=== PATIENT | male | born 1985 | race Caucasian/White ===

== ENCOUNTER 2020-07-09 12:12 | Inpatient (IN) | payer MEDICAID ==
[2020-07-09] MEDS ORDERED: Sodium Chloride 0.9% 10 ML Syringe FLUSH PRN (12:20)
[2020-07-09] MEDS ORDERED: Sodium Chloride 0.9% 1,000 ML IV ONE ×2 (12:20→16:04)
[2020-07-09] MEDS ORDERED: Sodium Chloride 0.9% 2.5 ML Syringe FLUSH PRN (12:20)
[2020-07-09] MEDS ORDERED: Ondansetron 4 MG/2 ML SDV IVPUSH ONE (12:27)
[2020-07-09] MEDS ORDERED: Ondansetron 4 MG/2 ML SDV ONE (12:27)
--- NOTE | 2020-07-09 12:30 | EDM.PDOC ---
ED HPI GENERAL MEDICAL PROBLEM - General Chief Complaint: Abdominal Pain Stated Complaint: EMS Time Seen by Provider: 07/09/20 12:25 - History of Present Illness INITIAL COMMENTS - FREE TEXT/NARRATIVE: History of present illness: [] The patient been vomiting and had abdominal distention with pain in his abdomen for 2 days. The patient's pain is moderately severe at times. Its tolerable now. He has not had a bowel movement in 2 days ago. He is also not passing gas. His vomitus essentially is what ever he eats. He was seen at a hospital in [facility] and had x-rays last night and a white count. The x-ray showed small bowel obstruction and the white count was 12,000. The patient continues to have the symptoms and vomiting. He presents for CT after having oral contrast administered at [place]. Their CT scanner was not can rotate through early today so they sent him to us because Jeanette Cartagena is on diversion. Review of systems: As per history of present illness and below otherwise all systems reviewed and negative. Past medical history: As per history of present illness and as reviewed below otherwise noncontributory. Surgical history: As per history of present illness and as reviewed below otherwise noncontributory. Social history: No reported history of drug or alcohol abuse. Family history: As per history of present illness and as reviewed below otherwise noncontributory. Physical exam: Constitutional - well developed, well-nourished and in no acute distress HEENT - normocephalic, no evidence of trauma - external nose and mouth normal - no mass in neck and no JVD - mucosae moist EYES - full EOM, PERRL, no icterus - no evidence of inflammation, injection, or drainage Respiratory - no respiratory distress, equal bilateral expansion, lungs clear to auscultation and no abnormal lung sounds Cardiovascular - Regular Rhythm with S1 and S2 appreciated and no murmur, gallop or rub. GI - abdomen distended without organomegaly - normal bowel sounds - no guard or rebound Musculoskeletal no gross deformity of long bones or joints - no tenderness, swelling or edema Neurologic - Alert and oriented times four - CN II-XII grossly intact - motor sensory and coordination symmetrically normal Psychiatric - appropriate mood and affect with normal thought content Hematologic - No petechiae or purpura - mucosa appropriate color and sclera not pale - normal nail bed color and refill Integument - no rash or evidence of trauma - normal turgor Diagnostics: [] Therapeutics: [] Impression: [] Plan: [] Definitive disposition and diagnosis as appropriate pending reevaluation and review of above. abdomen Pain Score (Numeric/FACES): 2 - Related Data Allergies Allergy/AdvReac Type Severity Reaction Status Date / Time No Known Allergies Allergy Verified 07/09/20 12:20 Home Meds: Home Meds . [No Known Home Meds] 07/09/20 [History] Past Medical History HEENT History: Reports: None Cardiovascular History: Reports: None Respiratory History: Reports: None Gastrointestinal History: Reports: None Genitourinary History: Reports: None Musculoskeletal History: Reports: None Neurological History: Reports: None Psychiatric History: Reports: None Endocrine/Metabolic History: Reports: None Hematologic History: Reports: None Immunologic History: Reports: None Oncologic (Cancer) History: Reports: None Dermatologic History: Reports: None - Infectious Disease History Infectious Disease History: Reports: None - Past Surgical History Head Surgeries/Procedures: Reports: None HEENT Surgical History: Reports: None Cardiovascular Surgical History: Reports: None Respiratory Surgical History: Reports: None GI Surgical History: Reports: Hernia, Abdominal Male Surgical History: Reports: None Endocrine Surgical History: Reports: None Neurological Surgical History: Reports: None Musculoskeletal Surgical History: Reports: None Oncologic Surgical History: Reports: None Dermatological Surgical History: Reports: None Social & Family History - Family History Family Medical History: No Pertinent Family History - Tobacco Use Tobacco Use Status *Q: Never Tobacco User Second Hand Smoke Exposure: No - Caffeine Use Caffeine Use: Reports: None - Recreational Drug Use Recreational Drug Use: No ED ROS GENERAL - Review of Systems Review Of Systems: Comprehensive ROS is negative, except as noted in HPI. ED EXAM, GENERAL - Physical Exam Exam: See Below Free Text/Narrative:: My physical exam is in the HPI Course - Vital Signs Text/Narrative:: Patient had high-grade obstruction with transition in the right lower quadrant. He had no surgical history. There is no obvious scar. Appendix was well visualized and not enlarged. There is no stranding around the appendix. There is no recurrence of the hernia in the right sided and then repaired years ago. That was done in [place] and there is no record available to me immediately. Dr. Moore saw the patient most kindly in the emergency department and decided because of no pain that he did not need immediate surgery be needed noninvasive decompression with an NG tube. Discussed with Dr. Saavedra and admitted for observation. Last Recorded V/S: Last Vital Signs Temp 37.0 C 07/09/20 15:52 Pulse 74 07/09/20 17:15 Resp 18 07/09/20 17:15 BP 143/82 H 07/09/20 17:15 Pulse Ox 97 07/09/20 17:15 - Orders/Labs/Meds Orders: Active Orders 24 hr Category Date Time Status Admission Status [Patient Status] [ADT] Stat ADT 07/09/20 17:09 Active Gastrointestinal Tube Mgmt [RC] ASDIRECTED Care 07/09/20 16:10 Active NG [Gastrointestinal Tube Mgmt] [RC] ASDIRECTED Care 07/09/20 17:13 Active Notify Provider Consults [RC] ASDIRECTED Care 07/09/20 17:18 Active Consult to Physician [CONS] Stat Cons 07/09/20 17:18 Active NPO Now [Nothing per Oral Now Diet] [DIET] Diet 07/10/20 Breakfast Active Chest 1V Frontal [CR] Stat Exams 07/09/20 16:10 Taken CBC WITH AUTO DIFF [HEME] Stat Lab 07/09/20 16:13 Ordered COMPREHENSIVE METABOLIC PN,CMP [CHEM] Stat Lab 07/09/20 16:13 Ordered CORONAVIRUS COVID-19 ADAM [MOLEC] Stat Lab 07/09/20 16:46 Received Acetaminophen [TylenoL] Med 07/09/20 17:14 Active 650 mg PO Q6H PRN Benzocaine/Cetylpyrd/Menthol [Cepacol Sore Throat] Med 07/09/20 17:16 Active 1 lozenge MUCMEM Q2HR PRN Lactated Ringers [Ringers, Lactated] 1,000 ml Med 07/09/20 17:15 Active IV ASDIRECTED Sodium Chloride 0.9% [Saline Flush] Med 07/09/20 12:20 Active 10 ml FLUSH ASDIRECTED PRN Sodium Chloride 0.9% [Saline Flush] Med 07/09/20 12:20 Active 2.5 ml FLUSH ASDIRECTED PRN Nasogastric Orogastric Tube Insertion [OM.PC] Stat Oth 07/09/20 16:09 Ordered Saline Lock Insert [OM.PC] Stat Oth 07/09/20 12:20 Ordered Medication Orders Acetaminophen (Acetaminophen 325 Mg Tab) 650 mg PO Q6H PRN PRN Reason: Abdominal Pain Benzocaine/Menthol (Benzocaine/Cetylpyridinium/Menthol Lozenge) 1 lozenge MUCMEM Q2HR PRN PRN Reason: sore throat Lactated Ringer's (Ringers, Lactated) 1,000 mls @ 150 mls/hr IV ASDIRECTED CURRY Sodium Chloride (Sodium Chloride 0.9% 10 Ml Syringe) 10 ml FLUSH ASDIRECTED PRN PRN Reason: Keep Vein Open Last Admin: 07/09/20 12:32 Dose: 10 ml Documented by: SUMEET Sodium Chloride (Sodium Chloride 0.9% 2.5 Ml Syringe) 2.5 ml FLUSH ASDIRECTED PRN PRN Reason: Keep Vein Open Last Admin: 07/09/20 12:32 Dose: 2.5 ml Documented by: SUMEET Labs: Laboratory Tests 07/09/20 07/09/20 Range/Units 12:35 16:30 Lactic Acid 2.0 (0.4-2.0) mmol/L Lipase 38 L (73-393) U/L Meds: Medications Generic Name Dose Route Start Last Admin Trade Name Freq PRN Reason Stop Dose Admin Acetaminophen 650 mg 07/09/20 17:14 Acetaminophen 325 Mg Tab PO Q6H PRN Abdominal Pain Benzocaine/Menthol 1 lozenge 07/09/20 17:16 Benzocaine/Cetylpyridinium/Menthol Lozenge MUCMEM Q2HR PRN sore throat Lactated Ringer's 1,000 mls @ 150 mls/hr 07/09/20 17:15 Ringers, Lactated IV ASDIRECTED CURRY Sodium Chloride 10 ml 07/09/20 12:20 07/09/20 12:32 Sodium Chloride 0.9% 10 Ml Syringe FLUSH 10 ml ASDIRECTED PRN Administration Keep Vein Open Sodium Chloride 2.5 ml 07/09/20 12:20 07/09/20 12:32 Sodium Chloride 0.9% 2.5 Ml Syringe FLUSH 2.5 ml ASDIRECTED PRN Administration Keep Vein Open Discontinued Medications Generic Name Dose Route Start Last Admin Trade Name Freq PRN Reason Stop Dose Admin Benzocaine 1 each 07/09/20 17:09 Benzocaine 20% Topical [place] Ud MUCMEM 06/01/21 17:10 ONETIME ONE Sodium Chloride 1,000 mls @ 1,000 mls/hr 07/09/20 12:20 07/09/20 12:32 Normal Saline IV 07/09/20 13:19 1,000 mls/hr .Bolus ONE Administration Sodium Chloride 1,000 mls @ 999 mls/hr 07/09/20 16:04 07/09/20 16:11 Normal Saline IV 07/09/20 17:04 999 mls/hr .BOLUS ONE Administration Iopamidol 100 ml 07/09/20 15:52 07/09/20 15:52 Iopamidol 755 Mg/Ml 500 Ml Multipack Bottle IVPUSH 07/09/20 15:53 100 ml ONETIME STA Administration Ketorolac Tromethamine 15 mg 07/09/20 13:03 07/09/20 13:15 Ketorolac 30 Mg/Ml Sdv IVPUSH 07/09/20 13:04 15 mg ONETIME ONE Administration Ondansetron HCl 4 mg 07/09/20 12:27 07/09/20 12:32 Ondansetron 4 Mg/2 Ml Sdv IVPUSH 07/09/20 12:28 4 mg ONETIME ONE Administration Ondansetron HCl Confirm 07/09/20 12:27 07/09/20 12:32 Ondansetron 4 Mg/2 Ml Sdv Administered 07/09/20 12:28 Not Given Dose 4 mg .ROUTE .STK-MED ONE Departure - Departure Time of Disposition: 17:21 Disposition: Refer to Observation Condition: Good Clinical Impression: SBO (small bowel obstruction) - Discharge Information Referrals: PCP,None [Primary Care Provider] - Forms: ED Department Discharge Sepsis Event Note (ED) - Evaluation Sepsis Screening Result: No Definite Risk - Focused Exam Vital Signs: Vital Signs Temp Pulse Resp BP Pulse Ox 07/09/20 17:15 74 18 143/82 H 97 07/09/20 15:52 37.0 C 87 20 117/71 98 07/09/20 13:46 78 16 110/74 94 L 07/09/20 12:17 35.9 C L 95 18 117/76 96 - My Orders Last 24 Hours: My Active Orders 07/09/20 12:20 Sodium Chloride 0.9% [Saline Flush] 10 ml FLUSH ASDIRECTED PRN Sodium Chloride 0.9% [Saline Flush] 2.5 ml FLUSH ASDIRECTED PRN Saline Lock Insert [OM.PC] Stat 07/09/20 16:09 Nasogastric Orogastric Tube Insertion [OM.PC] Stat 07/09/20 16:10 Gastrointestinal Tube Mgmt [RC] ASDIRECTED Chest 1V Frontal [CR] Stat 07/09/20 16:13 CBC WITH AUTO DIFF [HEME] Stat COMPREHENSIVE METABOLIC PN,CMP [CHEM] Stat 07/09/20 16:46 CORONAVIRUS COVID-19 ADAM [MOLEC] Stat 07/09/20 17:18 Notify Provider Consults [RC] ASDIRECTED Consult to Physician [CONS] Stat - Assessment/Plan Last 24 Hours: My Active Orders 07/09/20 12:20 Sodium Chloride 0.9% [Saline Flush] 10 ml FLUSH ASDIRECTED PRN Sodium Chloride 0.9% [Saline Flush] 2.5 ml FLUSH ASDIRECTED PRN Saline Lock Insert [OM.PC] Stat 07/09/20 16:09 Nasogastric Orogastric Tube Insertion [OM.PC] Stat 07/09/20 16:10 Gastrointestinal Tube Mgmt [RC] ASDIRECTED Chest 1V Frontal [CR] Stat 07/09/20 16:13 CBC WITH AUTO DIFF [HEME] Stat COMPREHENSIVE METABOLIC PN,CMP [CHEM] Stat 07/09/20 16:46 CORONAVIRUS COVID-19 ADAM [MOLEC] Stat 07/09/20 17:18 Notify Provider Consults [RC] ASDIRECTED Consult to Physician [CONS] Stat
[2020-07-09] MEDS ORDERED: Ketorolac 30 MG/ML SDV IVPUSH ONE (13:03)
--- NOTE | 2020-07-09 13:48 | CR ---
For Patients: As a result of the Century Cures Act, medical imaging exams and procedure reports are released immediately into your electronic medical record. You may view this report before your referring provider. If you have questions, please contact your health care provider. INDICATION: Bowel obstruction TECHNIQUE: Supine view abdomen COMPARISON: None available FINDINGS: There are dilated air and fluid-filled loops of central small bowel which may represent obstruction versus enteritis. There is a mild proximal amount of intracolonic fecal distention. There is no intra-abdominal free air or pathologic calcification. There is no acute osseous abnormality. IMPRESSION: Multiple dilated air and fluid-filled loops of central small bowel which may represent bowel obstruction versus ileus. Dictated by Bubba Patrick MD @ 07/09/2020 1:46:[address] Bubba Patrick @ Jul 09 2020 1:46PM
[2020-07-09] MEDS ORDERED: Iopamidol 755 MG/ML 500 ML Multipack Bottle IVPUSH STA (15:52)
--- NOTE | 2020-07-09 15:55 | CT ---
For Patients: As a result of the Century Cures Act, medical imaging exams and procedure reports are released immediately into your electronic medical record. You may view this report before your referring provider. If you have questions, please contact your health care provider. INDICATION: Abdominal pain, hip hiccups, history of prior right inguinal herniorrhaphy TECHNIQUE: CT abdomen and pelvis acquired with 100 cc Isovue 370 IV contrast. COMPARISON: KUB from earlier today FINDINGS: Images through the upper abdomen are limited due to motion artifact. Lower chest: Unremarkable. Liver: Unremarkable. Spleen: Unremarkable. Pancreas: Unremarkable. Gallbladder and bile ducts: Unremarkable. Adrenal glands: Unremarkable. Kidneys: Unremarkable. GI tract: Small amount of oral contrast in the small bowel from previously administered contrast material. Multiple loops of dilated small bowel reach maximum diameter of 4.9 and cm. Transition point is in the right lower quadrant, best seen on image numbers [id number] series 203. Small amount of simple free fluid in the pelvis. No free air or pneumatosis. Normal appendix identified. The colon is decompressed. Vascular structures: Unremarkable. Lymph nodes: Unremarkable. Pelvic Organs: Unremarkable. Bones: Unremarkable for age. IMPRESSION: Small-bowel obstruction. This may be due to adhesions from prior right inguinal herniorrhaphy. Small amount of free fluid. No free air pneumatosis. Please note that all CT scans at this facility use dose modulation, iterative reconstruction, and/or weight-based dosing when appropriate to reduce radiation dose to as low as reasonably achievable. Dictated by Adelita Murcia MD @ 07/09/2020 3:53:[address] Adelita Murcia @ Jul 09 2020 3:53PM
[2020-07-09] MEDS ORDERED: Benzocaine 20% Topical Spray UD MUCMEM ONE (17:09)
[2020-07-09] MEDS ORDERED: Acetaminophen 325 MG Tab PO PRN (17:14)
--- NOTE | 2020-07-09 17:23 | PCM.SN.2 ---
- Free Text/Narrative Note: pt seen chart reviewed; sbo w air fluid level, pain minimal; await blood work; admit for observation, serial abd exam and blood work; [id number]
[2020-07-09 17:53] LABS: BLOOD UREA NITROGEN,BUN 13 mg/dL (7.0-18.0); CARBON DIOXIDE,CO2 24.9 mmol/L (21.0-32.0); CHLORIDE,CL 105 mmol/L (98-107); GLUCOSE RANDOM 110 mg/dL (74-106); SODIUM,NA 140 mmol/L (136-148)
--- NOTE | 2020-07-09 17:56 | PCM.SN.2 ---
- Free Text/Narrative Note: wbc and lactic acid wnl; ngt decompression w serial abd exam and blood work
--- NOTE | 2020-07-09 18:02 | CR ---
For Patients: As a result of the Century Cures Act, medical imaging exams and procedure reports are released immediately into your electronic medical record. You may view this report before your referring provider. If you have questions, please contact your health care provider. Indication: SBO Technique: Chest 1 view Comparison: None Findings/Impression: Cardiovascular and mediastinum: Heart size and vasculature are normal in caliber and appearance. Mediastinum is within normal limits. Lungs and pleural space: Lungs are clear. No sign of infiltrate or mass. No sign of pleural effusion. No pneumothorax. Bones and soft tissues: A nasogastric tube with the tip in the proximal stomach. The side hole is located at the level of the distal esophagus. Consider advancing further into the stomach. Gas-filled upper abdominal small bowel segments. A rectilinear density projecting over the right abdomen, nonspecific and possibly overlying the patient. No suspicious osseous abnormalities. Dictated by Vitaly Aceves MD @ 07/09/2020 6:02:[address] Vitaly Aceves @ Jul 09 2020 6:02PM
[2020-07-09] MEDS: Lactated Ringers 1,000 ML IV SCH (18:45)
--- NOTE | 2020-07-09 19:08 | HP ---
DATE OF : 1985 PRIMARY CARE PHYSICIAN: None PCP This is a consult from Dr. Álvarez in the emergency room. CONSULTING QUESTION: Abdominal pain and possible bowel obstruction. HISTORY OF PRESENT ILLNESS: The patient is a 34-year-old gentleman and seen at outside hospital for abd pain, n/v, something like early in the morning 3 to 4 o'clock for 2-day history of increased abdominal pain, nausea, and vomiting and somehow the CAT scan was not working. The patient was transferred to our facility I guess for the purpose of a CAT scan, and CAT scan shows small bowel obstruction with a transition point. Surgery was then consulted. The patient has no abdominal surgery as an adult. He has a left inguinal hernia repair as a 6-year-old, young children. The patient denied prior episode. Currently, the patient feels comfortable and denied any abdominal pain. The patient remarked that he was hurting very bad 2 days ago, and the pain was 9/10, and yesterday, pain getting much better about 6 to 7 and right now in the emergency room, he barely has any pain or maybe a #2. PAST SURGICAL HISTORY: At 6-year-old, has left inguinal hernia repair with mesh per patient. ALLERGIES: Please refer to nursing for details. MEDICATIONS: Please refer to nursing for details. MEDICAL HISTORY: Denied diabetes, [place], CVA, or hypertension. PHYSICAL EXAMINATION: GENERAL: A very anxious gentleman in no acute distress. HEENT: Normocephalic and atraumatic. Sclerae are anicteric. LUNGS: Clear to auscultation. HEART: Regular rate and rhythm. ABDOMEN: Distended but soft. Decreased bowel sounds and no tenderness whatsoever. DATA: White count at outside facility of 12.6, and we are still waiting for blood work over here. IMPRESSION: CT scan shows small bowel obstruction with a transition point, but the patient has no pain. We will do conservative management, put nasogastric tube, decompression, and follow with serial abdominal exam and follow with blood work. As always, thank you for the kind referral. LAURA ROMAN /[id number] [place]
[2020-07-09] MEDS ORDERED: Acetaminophen/oxyCODONE 325-5 MG Tab PO PRN (20:25)
[2020-07-09] MEDS: Benzocaine 20% Topical Spray UD MUCMEM PRN (20:59)
[2020-07-09] MEDS: Benzocaine/Cetylpyridinium/Menthol Lozenge MUCMEM PRN (21:39)
[2020-07-09] MEDS ORDERED: Morphine 2 MG/ML SYRINGE IVPUSH PRN (23:42)
--- NOTE | 2020-07-10 00:01 | PCM.HP.2 ---
H&P History of Present Illness - General Date of Service: 07/09/20 Admit Problem/Dx: Admission Diagnosis/Problem Admission Diagnosis/Problem Small bowel obstruction - History of Present Illness Initial Comments - Free Text/Narative: 34 yo male who was transferred from [place] for CT scan of abdomen. He presented with two day history of abdominal pain, nausea and vomiting. Patient reports last bowel movement was two days ago. PAtient denies any fevers, chills or shortness of breath. CT scan of abdomen reported small bowel obstruction. Dr. Moore was consulted in the ED and recommend NG tube placement and conservative management. Since NG tube placement patient reports epgiastric pain. Throat Pain Score (Numeric/FACES): 6 abdomen Pain Score (Numeric/FACES): 3 - Related Data Allergies/Adverse Reactions: Allergies Allergy/AdvReac Type Severity Reaction Status Date / Time No Known Allergies Allergy Verified 07/09/20 18:37 Home Medications: Home Meds . [No Known Home Meds] 07/09/20 [History] Past Medical History HEENT History: Reports: None Cardiovascular History: Reports: None Respiratory History: Reports: None Gastrointestinal History: Reports: None Genitourinary History: Reports: None Musculoskeletal History: Reports: None Neurological History: Reports: None Psychiatric History: Reports: None Endocrine/Metabolic History: Reports: None Hematologic History: Reports: None Immunologic History: Reports: None Oncologic (Cancer) History: Reports: None Dermatologic History: Reports: None - Infectious Disease History Infectious Disease History: Reports: None - Past Surgical History Head Surgeries/Procedures: Reports: None HEENT Surgical History: Reports: None Cardiovascular Surgical History: Reports: None Respiratory Surgical History: Reports: None GI Surgical History: Reports: Hernia, Abdominal Male Surgical History: Reports: None Endocrine Surgical History: Reports: None Neurological Surgical History: Reports: None Musculoskeletal Surgical History: Reports: None Oncologic Surgical History: Reports: None Dermatological Surgical History: Reports: None Social & Family History - Family History Family Medical History: No Pertinent Family History - Tobacco Use Tobacco Use Status *Q: Never Tobacco User Second Hand Smoke Exposure: No - Caffeine Use Caffeine Use: Reports: None - Recreational Drug Use Recreational Drug Use: No H&P Review of Systems - Review of Systems: Review Of Systems: Comprehensive ROS is negative, except as noted in HPI. Exam - Exam Exam: See Below - Vital Signs Vital Signs: Last Vital Signs Temp 37.1 C 07/09/20 20:45 Pulse 84 07/09/20 20:45 Resp 17 07/09/20 20:45 BP 130/71 07/09/20 20:45 Pulse Ox 96 07/09/20 20:45 Weight: 81.102 kg - Exam General: Alert, Oriented HEENT: Mucosa Moist & [place] Lungs: Clear to Auscultation, Normal Respiratory Effort Cardiovascular: Regular Rate, Regular Rhythm GI/Abdominal Exam: Normal Bowel Sounds, Soft, Non-Tender Extremities: Non-Tender, No Pedal Edema Skin: Warm, Dry, Intact - Patient Data Lab Results Last 24 hrs: Laboratory Results - last 24 hr 07/09/20 07/09/20 07/09/20 Range/Units 12:35 16:30 16:46 WBC (4.0-11.0) K/uL RBC (4.50-5.90) M/uL Hgb (13.0-17.0) g/dL Hct (38.0-50.0) % MCV (80.0-98.0) fL MCH (27.0-32.0) pg MCHC (31.0-37.0) g/dL RDW Std Deviation (28.0-62.0) fl RDW Coeff of Shivam (11.0-15.0) % Plt Count (150-400) K/uL MPV (7.40-12.00) fL Neut % (Auto) (48.0-80.0) % Lymph % (Auto) (16.0-40.0) % Brown % (Auto) (0.0-15.0) % Eos % (Auto) (0.0-7.0) % Baso % (Auto) (0.0-1.5) % Neut # (Auto) (1.4-5.7) K/uL Lymph # (Auto) (0.6-2.4) K/uL Brown # (Auto) (0.0-0.8) K/uL Eos # (Auto) (0.0-0.7) K/uL Baso # (Auto) (0.0-0.1) K/uL Nucleated RBC % /100WBC Nucleated RBCs # K/uL Sodium (136-148) mmol/L Potassium (3.5-5.1) mmol/L Chloride (98-107) mmol/L Carbon Dioxide (21.0-32.0) mmol/L BUN (7.0-18.0) mg/dL Creatinine (0.8-1.3) mg/dL Est Cr Clr Drug Dosing mL/min Estimated GFR (MDRD) ml/min Glucose (74-106) mg/dL Lactic Acid 2.0 (0.4-2.0) mmol/L Calcium (8.5-10.1) mg/dL Total Bilirubin (0.2-1.0) mg/dL AST (15-37) IU/L ALT (14-63) IU/L Alkaline Phosphatase (46-116) U/L Total Protein (6.4-8.2) g/dL Albumin (3.4-5.0) g/dL Globulin (2.6-4.0) g/dL Albumin/Globulin Ratio (0.9-1.6) Lipase 38 L (73-393) U/L SARS-CoV-2 RNA (ADAM) NEGATIVE (NEGATIVE) 07/09/20 07/09/20 Range/Units 17:20 17:20 WBC 10.71 (4.0-11.0) K/uL RBC 5.18 (4.50-5.90) M/uL Hgb 15.5 (13.0-17.0) g/dL Hct 46.8 (38.0-50.0) % MCV 90.3 (80.0-98.0) fL MCH 29.9 (27.0-32.0) pg MCHC 33.1 (31.0-37.0) g/dL RDW Std Deviation 48.2 (28.0-62.0) fl RDW Coeff of Shivam 15 (11.0-15.0) % Plt Count 293 (150-400) K/uL MPV 10.10 (7.40-12.00) fL Neut % (Auto) 72.3 (48.0-80.0) % Lymph % (Auto) 16.4 (16.0-40.0) % Brown % (Auto) 11.2 (0.0-15.0) % Eos % (Auto) 0.0 (0.0-7.0) % Baso % (Auto) 0.1 (0.0-1.5) % Neut # (Auto) 7.7 H (1.4-5.7) K/uL Lymph # (Auto) 1.8 (0.6-2.4) K/uL Brown # (Auto) 1.2 H (0.0-0.8) K/uL Eos # (Auto) 0.0 (0.0-0.7) K/uL Baso # (Auto) 0.0 (0.0-0.1) K/uL Nucleated RBC % 0.0 /100WBC Nucleated RBCs # 0 K/uL Sodium 140 (136-148) mmol/L Potassium 4.0 (3.5-5.1) mmol/L Chloride 105 (98-107) mmol/L Carbon Dioxide 24.9 (21.0-32.0) mmol/L BUN 13 (7.0-18.0) mg/dL Creatinine 1.0 (0.8-1.3) mg/dL Est Cr Clr Drug Dosing 96.40 mL/min Estimated GFR (MDRD) > 60.0 ml/min Glucose 110 H (74-106) mg/dL Lactic Acid (0.4-2.0) mmol/L Calcium 8.0 L (8.5-10.1) mg/dL Total Bilirubin 0.8 (0.2-1.0) mg/dL AST 22 (15-37) IU/L ALT 48 (14-63) IU/L Alkaline Phosphatase 59 (46-116) U/L Total Protein 7.0 (6.4-8.2) g/dL Albumin 3.4 (3.4-5.0) g/dL Globulin 3.6 (2.6-4.0) g/dL Albumin/Globulin Ratio 0.9 (0.9-1.6) Lipase (73-393) U/L SARS-CoV-2 RNA (ADAM) (NEGATIVE) Result Diagrams: 07/09/20 17:20 07/09/20 17:20 Sepsis Event Note - Evaluation Sepsis Screening Result: No Definite Risk - Focused Exam Vital Signs: Vital Signs Temp Pulse Resp BP BP Pulse Ox 07/09/20 20:45 37.1 C 84 17 130/71 96 07/09/20 18:30 37.4 C 78 17 145/74 H 97 07/09/20 17:15 74 18 143/82 H 97 07/09/20 15:52 37.0 C 87 20 117/71 98 07/09/20 13:46 78 16 110/74 94 L 07/09/20 12:17 35.9 C L 95 18 117/76 96 Problem List Initiated/Reviewed/Updated: Yes Orders Last 24hrs: Active Orders 24 hr Category Date Time Status Admission Status [Patient Status] [ADT] Stat ADT 07/09/20 17:09 Active Admission Status [Patient Status] [ADT] Stat ADT 07/09/20 17:23 Active Gastrointestinal Tube Mgmt [RC] ASDIRECTED Care 07/09/20 16:10 Active NG [Gastrointestinal Tube Mgmt] [RC] ASDIRECTED Care 07/09/20 17:13 Active Notify Provider Consults [RC] ASDIRECTED Care 07/09/20 17:18 Active Consult to Physician [CONS] Stat Cons 07/09/20 17:18 Active NPO Now [Nothing per Oral Now Diet] [DIET] Diet 07/10/20 Breakfast Active CBC WITH AUTO DIFF [HEME] AM Lab 07/11/20 05:11 Ordered COMPREHENSIVE METABOLIC PN,CMP [CHEM] AM Lab 07/11/20 05:11 Ordered Acetaminophen [TylenoL] Med 07/09/20 17:14 Active 650 mg PO Q6H PRN Acetaminophen/oxyCODONE [Percocet 325-5 MG] Med 07/09/20 20:25 Active 1 tab PO Q6H PRN Benzocaine [Hurricaine One 20%] Med 07/09/20 20:26 Active 1 each MUCMEM Q1H PRN Benzocaine/Cetylpyrd/Menthol [Cepacol Sore Throat] Med 07/09/20 17:16 Active 1 lozenge MUCMEM Q2HR PRN Lactated Ringers [Ringers, Lactated] 1,000 ml Med 07/09/20 17:15 Active IV ASDIRECTED Morphine Med 07/09/20 23:42 Ordered 2 mg IVPUSH Q2H PRN Pantoprazole [ProTONIX IV] 40 mg Med 07/10/20 09:00 Active Sodium Chloride 0.9% [Normal Saline] 10 ml IV DAILY Sodium Chloride 0.9% [Saline Flush] Med 07/09/20 12:20 Active 10 ml FLUSH ASDIRECTED PRN Sodium Chloride 0.9% [Saline Flush] Med 07/09/20 12:20 Active 2.5 ml FLUSH ASDIRECTED PRN Nasogastric Orogastric Tube Insertion [OM.PC] Stat Ot 07/09/20 16:09 Ordered Saline Lock Insert [OM.PC] Stat Ot 07/09/20 12:20 Ordered Medication Orders Acetaminophen (Acetaminophen 325 Mg Tab) 650 mg PO Q6H PRN PRN Reason: Abdominal Pain Benzocaine (Benzocaine 20% Topical [place] Ud) 1 each MUCMEM Q1H PRN PRN Reason: Pain Last Admin: 07/09/20 20:59 Dose: 1 each Documented by: VINCE Benzocaine/Menthol (Benzocaine/Cetylpyridinium/Menthol Lozenge) 1 lozenge MUCMEM Q2HR PRN PRN Reason: sore throat Last Admin: 07/09/20 21:39 Dose: 1 lozenge Documented by: VINCE Lactated Ringer's (Ringers, Lactated) 1,000 mls @ 150 mls/hr IV ASDIRECTED CURRY Last Admin: 07/09/20 18:45 Dose: 150 mls/hr Documented by: SEMIC Pantoprazole Sodium 40 mg/ (Sodium Chloride) 10 mls @ 300 mls/hr IV DAILY CURRY Morphine Sulfate (Morphine 2 Mg/Ml Syringe) 2 mg IVPUSH Q2H PRN PRN Reason: Pain Oxycodone/Acetaminophen (Acetaminophen/Oxycodone 325-5 Mg Tab) 1 tab PO Q6H PRN PRN Reason: Pain Sodium Chloride (Sodium Chloride 0.9% 10 Ml Syringe) 10 ml FLUSH ASDIRECTED PRN PRN Reason: Keep Vein Open Last Admin: 07/09/20 12:32 Dose: 10 ml Documented by: SUMEET Sodium Chloride (Sodium Chloride 0.9% 2.5 Ml Syringe) 2.5 ml FLUSH ASDIRECTED PRN PRN Reason: Keep Vein Open Last Admin: 07/09/20 12:32 Dose: 2.5 ml Documented by: SUMEET Assessment/Plan Comment:: 34 yo male admitted for small bowel obstruction. WE will continue bowel rest, NG tube decompression and IV fluids. CXR shows NG at tip of stomach, will advance.
[2020-07-10] MEDS: Lactated Ringers 1,000 ML IV SCH ×3 (01:34→14:48)
--- NOTE | 2020-07-10 02:13 | CR ---
For Patients: As a result of the Cures Act, medical imaging exams and procedure reports are released immediately into your electronic medical record. You may view this report before your referring provider. If you have questions, please contact your health care provider. INDICATION: G-tube placement. COMPARISON: 7 hours ago. FINDINGS: A gastric tube is present in the gastric body. Mild gaseous distention of stomach is present. Heart mediastinum are stable and within normal limits. Lungs appear unchanged. Dictated by Vic Murdock MD @ 07/10/2020 2:11:[address] Vic Murdock @ Jul 10 2020 2:11AM
[2020-07-10] MEDS: Benzocaine/Cetylpyridinium/Menthol Lozenge MUCMEM PRN (06:58)
--- NOTE | 2020-07-10 09:05 | PCM.PN ---
- General Info Date of Service: 07/10/20 - Review of Systems Systems Review Comment:: epigastric/chest pain has improved since adjusting NG tube, PAtient denies any abdominal pain, no stool. Is wondering when NG tube can be removed. - Patient Data Vitals - Most Recent: Last Vital Signs Temp 36.8 C 07/10/20 07:43 Pulse 82 07/10/20 07:43 Resp 17 07/10/20 07:43 BP 129/77 07/10/20 07:43 Pulse Ox 93 L 07/10/20 07:43 Weight - Most Recent: 81.102 kg I&O - Last 24 Hours: Intake & Output 07/09/20 07/10/20 07/10/20 22:59 06:59 14:59 Intake Total 1478 Output Total 700 Balance 778 Lab Results Last 24 Hours: Laboratory Results - last 24 hr 07/09/20 07/09/20 07/09/20 Range/Units 12:35 16:30 16:46 WBC (4.0-11.0) K/uL RBC (4.50-5.90) M/uL Hgb (13.0-17.0) g/dL Hct (38.0-50.0) % MCV (80.0-98.0) fL MCH (27.0-32.0) pg MCHC (31.0-37.0) g/dL RDW Std Deviation (28.0-62.0) fl RDW Coeff of Shivam (11.0-15.0) % Plt Count (150-400) K/uL MPV (7.40-12.00) fL Neut % (Auto) (48.0-80.0) % Lymph % (Auto) (16.0-40.0) % [place] % (Auto) (0.0-15.0) % Eos % (Auto) (0.0-7.0) % Baso % (Auto) (0.0-1.5) % Neut # (Auto) (1.4-5.7) K/uL Lymph # (Auto) (0.6-2.4) K/uL [place] # (Auto) (0.0-0.8) K/uL Eos # (Auto) (0.0-0.7) K/uL Baso # (Auto) (0.0-0.1) K/uL Nucleated RBC % /100WBC Nucleated RBCs # K/uL Sodium (136-148) mmol/L Potassium (3.5-5.1) mmol/L Chloride (98-107) mmol/L Carbon Dioxide (21.0-32.0) mmol/L BUN (7.0-18.0) mg/dL Creatinine (0.8-1.3) mg/dL Est Cr Clr Drug Dosing mL/min Estimated GFR (MDRD) ml/min Glucose (74-106) mg/dL Lactic Acid 2.0 (0.4-2.0) mmol/L Calcium (8.5-10.1) mg/dL Total Bilirubin (0.2-1.0) mg/dL AST (15-37) IU/L ALT (14-63) IU/L Alkaline Phosphatase (46-116) U/L Total Protein (6.4-8.2) g/dL Albumin (3.4-5.0) g/dL Globulin (2.6-4.0) g/dL Albumin/Globulin Ratio (0.9-1.6) Lipase 38 L (73-393) U/L SARS-CoV-2 RNA (ADAM) NEGATIVE (NEGATIVE) 07/09/20 07/09/20 Range/Units 17:20 17:20 WBC 10.71 (4.0-11.0) K/uL RBC 5.18 (4.50-5.90) M/uL Hgb 15.5 (13.0-17.0) g/dL Hct 46.8 (38.0-50.0) % MCV 90.3 (80.0-98.0) fL MCH 29.9 (27.0-32.0) pg MCHC 33.1 (31.0-37.0) g/dL RDW Std Deviation 48.2 (28.0-62.0) fl RDW Coeff of Shivam 15 (11.0-15.0) % Plt Count 293 (150-400) K/uL MPV 10.10 (7.40-12.00) fL Neut % (Auto) 72.3 (48.0-80.0) % Lymph % (Auto) 16.4 (16.0-40.0) % [place] % (Auto) 11.2 (0.0-15.0) % Eos % (Auto) 0.0 (0.0-7.0) % Baso % (Auto) 0.1 (0.0-1.5) % Neut # (Auto) 7.7 H (1.4-5.7) K/uL Lymph # (Auto) 1.8 (0.6-2.4) K/uL [place] # (Auto) 1.2 H (0.0-0.8) K/uL Eos # (Auto) 0.0 (0.0-0.7) K/uL Baso # (Auto) 0.0 (0.0-0.1) K/uL Nucleated RBC % 0.0 /100WBC Nucleated RBCs # 0 K/uL Sodium 140 (136-148) mmol/L Potassium 4.0 (3.5-5.1) mmol/L Chloride 105 (98-107) mmol/L Carbon Dioxide 24.9 (21.0-32.0) mmol/L BUN 13 (7.0-18.0) mg/dL Creatinine 1.0 (0.8-1.3) mg/dL Est Cr Clr Drug Dosing 96.40 mL/min Estimated GFR (MDRD) > 60.0 ml/min Glucose 110 H (74-106) mg/dL Lactic Acid (0.4-2.0) mmol/L Calcium 8.0 L (8.5-10.1) mg/dL Total Bilirubin 0.8 (0.2-1.0) mg/dL AST 22 (15-37) IU/L ALT 48 (14-63) IU/L Alkaline Phosphatase 59 (46-116) U/L Total Protein 7.0 (6.4-8.2) g/dL Albumin 3.4 (3.4-5.0) g/dL Globulin 3.6 (2.6-4.0) g/dL Albumin/Globulin Ratio 0.9 (0.9-1.6) Lipase (73-393) U/L SARS-CoV-2 RNA (ADAM) (NEGATIVE) Med Orders - Current: Current Medications Acetaminophen (Acetaminophen 325 Mg Tab) 650 mg PO Q6H PRN PRN Reason: Abdominal Pain Benzocaine (Benzocaine 20% Topical [place] Ud) 1 each MUCMEM Q1H PRN PRN Reason: Pain Last Admin: 07/09/20 20:59 Dose: 1 each Documented by: Benzocaine/Menthol (Benzocaine/Cetylpyridinium/Menthol Lozenge) 1 lozenge MUCMEM Q2HR PRN PRN Reason: sore throat Last Admin: 07/10/20 06:58 Dose: 1 lozenge Documented by: Lactated Ringer's (Ringers, Lactated) 1,000 mls @ 150 mls/hr IV ASDIRECTED CURRY Last Admin: 07/10/20 07:47 Dose: 150 mls/hr Documented by: Pantoprazole Sodium 40 mg/ (Sodium Chloride) 10 mls @ 300 mls/hr IV DAILY CURRY Morphine Sulfate (Morphine 2 Mg/Ml Syringe) 2 mg IVPUSH Q2H PRN PRN Reason: Pain Last Admin: 07/10/20 01:26 Dose: 2 mg Documented by: Oxycodone/Acetaminophen (Acetaminophen/Oxycodone 325-5 Mg Tab) 1 tab PO Q6H PRN PRN Reason: Pain Sodium Chloride (Sodium Chloride 0.9% 10 Ml Syringe) 10 ml FLUSH ASDIRECTED PRN PRN Reason: Keep Vein Open Last Admin: 07/09/20 12:32 Dose: 10 ml Documented by: Sodium Chloride (Sodium Chloride 0.9% 2.5 Ml Syringe) 2.5 ml FLUSH ASDIRECTED PRN PRN Reason: Keep Vein Open Last Admin: 07/09/20 12:32 Dose: 2.5 ml Documented by: Discontinued Medications Benzocaine (Benzocaine 20% Topical [place] Ud) 1 each MUCMEM ONETIME ONE Stop: 07/09/20 17:10 Last Admin: 07/09/20 17:22 Dose: 1 each Documented by: Sodium Chloride (Normal Saline) 1,000 mls @ 1,000 mls/hr IV .Bolus ONE Stop: 07/09/20 13:19 Last Admin: 07/09/20 12:32 Dose: 1,000 mls/hr Documented by: Sodium Chloride (Normal Saline) 1,000 mls @ 999 mls/hr IV .BOLUS ONE Stop: 07/09/20 17:04 Last Admin: 07/09/20 16:11 Dose: 999 mls/hr Documented by: Iopamidol (Iopamidol 755 Mg/Ml 500 Ml Multipack Bottle) 100 ml IVPUSH ONETIME STA Stop: 07/09/20 15:53 Last Admin: 07/09/20 15:52 Dose: 100 ml Documented by: Ketorolac Tromethamine (Ketorolac 30 Mg/Ml Sdv) 15 mg IVPUSH ONETIME ONE Stop: 07/09/20 13:04 Last Admin: 07/09/20 13:15 Dose: 15 mg Documented by: Ondansetron HCl (Ondansetron 4 Mg/2 Ml Sdv) 4 mg IVPUSH ONETIME ONE Stop: 07/09/20 12:28 Last Admin: 07/09/20 12:32 Dose: 4 mg Documented by: Ondansetron HCl (Ondansetron 4 Mg/2 Ml Sdv) Confirm Administered Dose 4 mg .ROUTE .STK-MED ONE Stop: 07/09/20 12:28 Last Admin: 07/09/20 12:32 Dose: Not Given Documented by: - Exam General: Alert, Oriented Neck: Supple Lungs: Clear to Auscultation, Normal Respiratory Effort Cardiovascular: Regular Rate, Regular Rhythm GI/Abdominal Exam: Normal Bowel Sounds, Soft, Non-Tender Extremities: Non-Tender, No Pedal Edema Skin: Warm, Dry, Intact Neurological: No New Focal Deficit - Patient Data Lab Results Last 24 hrs: Laboratory Results - last 24 hr 07/09/20 07/09/20 07/09/20 Range/Units 12:35 16:30 16:46 WBC (4.0-11.0) K/uL RBC (4.50-5.90) M/uL Hgb (13.0-17.0) g/dL Hct (38.0-50.0) % MCV (80.0-98.0) fL MCH (27.0-32.0) pg MCHC (31.0-37.0) g/dL RDW Std Deviation (28.0-62.0) fl RDW Coeff of Shivam (11.0-15.0) % Plt Count (150-400) K/uL MPV (7.40-12.00) fL Neut % (Auto) (48.0-80.0) % Lymph % (Auto) (16.0-40.0) % [place] % (Auto) (0.0-15.0) % Eos % (Auto) (0.0-7.0) % Baso % (Auto) (0.0-1.5) % Neut # (Auto) (1.4-5.7) K/uL Lymph # (Auto) (0.6-2.4) K/uL [place] # (Auto) (0.0-0.8) K/uL Eos # (Auto) (0.0-0.7) K/uL Baso # (Auto) (0.0-0.1) K/uL Nucleated RBC % /100WBC Nucleated RBCs # K/uL Sodium (136-148) mmol/L Potassium (3.5-5.1) mmol/L Chloride (98-107) mmol/L Carbon Dioxide (21.0-32.0) mmol/L BUN (7.0-18.0) mg/dL Creatinine (0.8-1.3) mg/dL Est Cr Clr Drug Dosing mL/min Estimated GFR (MDRD) ml/min Glucose (74-106) mg/dL Lactic Acid 2.0 (0.4-2.0) mmol/L Calcium (8.5-10.1) mg/dL Total Bilirubin (0.2-1.0) mg/dL AST (15-37) IU/L ALT (14-63) IU/L Alkaline Phosphatase (46-116) U/L Total Protein (6.4-8.2) g/dL Albumin (3.4-5.0) g/dL Globulin (2.6-4.0) g/dL Albumin/Globulin Ratio (0.9-1.6) Lipase 38 L (73-393) U/L SARS-CoV-2 RNA (ADAM) NEGATIVE (NEGATIVE) 07/09/20 07/09/20 Range/Units 17:20 17:20 WBC 10.71 (4.0-11.0) K/uL RBC 5.18 (4.50-5.90) M/uL Hgb 15.5 (13.0-17.0) g/dL Hct 46.8 (38.0-50.0) % MCV 90.3 (80.0-98.0) fL MCH 29.9 (27.0-32.0) pg MCHC 33.1 (31.0-37.0) g/dL RDW Std Deviation 48.2 (28.0-62.0) fl RDW Coeff of Shivam 15 (11.0-15.0) % Plt Count 293 (150-400) K/uL MPV 10.10 (7.40-12.00) fL Neut % (Auto) 72.3 (48.0-80.0) % Lymph % (Auto) 16.4 (16.0-40.0) % [place] % (Auto) 11.2 (0.0-15.0) % Eos % (Auto) 0.0 (0.0-7.0) % Baso % (Auto) 0.1 (0.0-1.5) % Neut # (Auto) 7.7 H (1.4-5.7) K/uL Lymph # (Auto) 1.8 (0.6-2.4) K/uL [place] # (Auto) 1.2 H (0.0-0.8) K/uL Eos # (Auto) 0.0 (0.0-0.7) K/uL Baso # (Auto) 0.0 (0.0-0.1) K/uL Nucleated RBC % 0.0 /100WBC Nucleated RBCs # 0 K/uL Sodium 140 (136-148) mmol/L Potassium 4.0 (3.5-5.1) mmol/L Chloride 105 (98-107) mmol/L Carbon Dioxide 24.9 (21.0-32.0) mmol/L BUN 13 (7.0-18.0) mg/dL Creatinine 1.0 (0.8-1.3) mg/dL Est Cr Clr Drug Dosing 96.40 mL/min Estimated GFR (MDRD) > 60.0 ml/min Glucose 110 H (74-106) mg/dL Lactic Acid (0.4-2.0) mmol/L Calcium 8.0 L (8.5-10.1) mg/dL Total Bilirubin 0.8 (0.2-1.0) mg/dL AST 22 (15-37) IU/L ALT 48 (14-63) IU/L Alkaline Phosphatase 59 (46-116) U/L Total Protein 7.0 (6.4-8.2) g/dL Albumin 3.4 (3.4-5.0) g/dL Globulin 3.6 (2.6-4.0) g/dL Albumin/Globulin Ratio 0.9 (0.9-1.6) Lipase (73-393) U/L SARS-CoV-2 RNA (ADAM) (NEGATIVE) Result Diagrams: 07/09/20 17:20 07/09/20 17:20 Sepsis Event Note - Evaluation Sepsis Screening Result: No Definite Risk - Focused Exam Vital Signs: Vital Signs Temp Pulse Resp BP Pulse Ox 07/10/20 07:43 36.8 C 82 17 129/77 93 L 07/10/20 04:39 37.0 C 77 16 119/71 95 07/10/20 01:31 36.9 C 85 16 123/70 94 L - Problem List Review Problem List Initiated/Reviewed/Updated: No - My Orders Last 24 Hours: My Active Orders 07/09/20 23:42 Morphine 2 mg IVPUSH Q2H PRN 07/10/20 08:57 CBC WITH AUTO DIFF [HEME] Routine COMPREHENSIVE METABOLIC PN,CMP [CHEM] Routine - Plan Plan:: 34 yo male admitted for small bowel obstruction. small bowel obstruction: continue NG tube, bowel rest and IV fluids, Dr. Moore has been consulted.
[2020-07-10 09:41] LABS: BLOOD UREA NITROGEN,BUN 12 mg/dL (7.0-18.0); CARBON DIOXIDE,CO2 28.3 mmol/L (21.0-32.0); CHLORIDE,CL 105 mmol/L (98-107); GLUCOSE RANDOM 118 mg/dL (74-106); POTASSIUM,K 4.5 mmol/L (3.5-5.1); SODIUM,NA 140 mmol/L (136-148)
[2020-07-10] MEDS: Pantoprazole 40 MG in Sodium Chloride 0.9% 10 ML IV SCH (09:45)
[2020-07-10] MEDS ORDERED: Bisacodyl 10 MG Supp RECTAL ONE (10:07)
--- NOTE | 2020-07-10 10:22 | PCM.SURGPN ---
- General Info Date of Service: 07/10/20 Functional Status: Reports: Pain Controlled (got mso4 last night for irriation from ngt, no abd pain, no flatus either) - Review of Systems General: Reports: No Symptoms Neurological: Reports: No Symptoms Psychiatric: Reports: No Symptoms - Patient Data Vitals - Most Recent: Last Vital Signs Temp 98.3 F 07/10/20 07:43 Pulse 82 07/10/20 07:43 Resp 17 07/10/20 07:43 BP 129/77 07/10/20 07:43 Pulse Ox 93 L 07/10/20 07:43 Weight - Most Recent: 178 lb 12.8 oz I&O - Last 24 Hours: Intake & Output 07/09/20 07/10/20 07/10/20 22:59 06:59 14:59 Intake Total 1478 Output Total 700 Balance 778 Lab Results Last 24 Hrs: Laboratory Results - last 24 hr 07/09/20 07/09/20 07/09/20 Range/Units 12:35 16:30 16:46 WBC (4.0-11.0) K/uL RBC (4.50-5.90) M/uL Hgb (13.0-17.0) g/dL Hct (38.0-50.0) % MCV (80.0-98.0) fL MCH (27.0-32.0) pg MCHC (31.0-37.0) g/dL RDW Std Deviation (28.0-62.0) fl RDW Coeff of Shivam (11.0-15.0) % Plt Count (150-400) K/uL MPV (7.40-12.00) fL Neut % (Auto) (48.0-80.0) % Lymph % (Auto) (16.0-40.0) % [place] % (Auto) (0.0-15.0) % Eos % (Auto) (0.0-7.0) % Baso % (Auto) (0.0-1.5) % Neut # (Auto) (1.4-5.7) K/uL Lymph # (Auto) (0.6-2.4) K/uL [place] # (Auto) (0.0-0.8) K/uL Eos # (Auto) (0.0-0.7) K/uL Baso # (Auto) (0.0-0.1) K/uL Nucleated RBC % /100WBC Nucleated RBCs # K/uL Sodium (136-148) mmol/L Potassium (3.5-5.1) mmol/L Chloride (98-107) mmol/L Carbon Dioxide (21.0-32.0) mmol/L BUN (7.0-18.0) mg/dL Creatinine (0.8-1.3) mg/dL Est Cr Clr Drug Dosing mL/min Estimated GFR (MDRD) ml/min Glucose (74-106) mg/dL Lactic Acid 2.0 (0.4-2.0) mmol/L Calcium (8.5-10.1) mg/dL Total Bilirubin (0.2-1.0) mg/dL AST (15-37) IU/L ALT (14-63) IU/L Alkaline Phosphatase (46-116) U/L Total Protein (6.4-8.2) g/dL Albumin (3.4-5.0) g/dL Globulin (2.6-4.0) g/dL Albumin/Globulin Ratio (0.9-1.6) Lipase 38 L (73-393) U/L SARS-CoV-2 RNA (ADAM) NEGATIVE (NEGATIVE) 07/09/20 07/09/20 07/10/20 Range/Units 17:20 17:20 09:10 WBC 10.71 9.22 (4.0-11.0) K/uL RBC 5.18 4.99 (4.50-5.90) M/uL Hgb 15.5 14.9 (13.0-17.0) g/dL Hct 46.8 45.1 (38.0-50.0) % MCV 90.3 90.4 (80.0-98.0) fL MCH 29.9 29.9 (27.0-32.0) pg MCHC 33.1 33.0 (31.0-37.0) g/dL RDW Std Deviation 48.2 48.4 (28.0-62.0) fl RDW Coeff of Shivam 15 15 (11.0-15.0) % Plt Count 293 286 (150-400) K/uL MPV 10.10 10.10 (7.40-12.00) fL Neut % (Auto) 72.3 76.9 (48.0-80.0) % Lymph % (Auto) 16.4 9.3 L (16.0-40.0) % [place] % (Auto) 11.2 13.7 (0.0-15.0) % Eos % (Auto) 0.0 0.0 (0.0-7.0) % Baso % (Auto) 0.1 0.1 (0.0-1.5) % Neut # (Auto) 7.7 H 7.1 H (1.4-5.7) K/uL Lymph # (Auto) 1.8 0.9 (0.6-2.4) K/uL [place] # (Auto) 1.2 H 1.3 H (0.0-0.8) K/uL Eos # (Auto) 0.0 0.0 (0.0-0.7) K/uL Baso # (Auto) 0.0 0.0 (0.0-0.1) K/uL Nucleated RBC % 0.0 0.0 /100WBC Nucleated RBCs # 0 0 K/uL Sodium 140 (136-148) mmol/L Potassium 4.0 (3.5-5.1) mmol/L Chloride 105 (98-107) mmol/L Carbon Dioxide 24.9 (21.0-32.0) mmol/L BUN 13 (7.0-18.0) mg/dL Creatinine 1.0 (0.8-1.3) mg/dL Est Cr Clr Drug Dosing 96.40 mL/min Estimated GFR (MDRD) > 60.0 ml/min Glucose 110 H (74-106) mg/dL Lactic Acid (0.4-2.0) mmol/L Calcium 8.0 L (8.5-10.1) mg/dL Total Bilirubin 0.8 (0.2-1.0) mg/dL AST 22 (15-37) IU/L ALT 48 (14-63) IU/L Alkaline Phosphatase 59 (46-116) U/L Total Protein 7.0 (6.4-8.2) g/dL Albumin 3.4 (3.4-5.0) g/dL Globulin 3.6 (2.6-4.0) g/dL Albumin/Globulin Ratio 0.9 (0.9-1.6) Lipase (73-393) U/L SARS-CoV-2 RNA (ADAM) (NEGATIVE) 07/10/20 Range/Units 09:10 WBC (4.0-11.0) K/uL RBC (4.50-5.90) M/uL Hgb (13.0-17.0) g/dL Hct (38.0-50.0) % MCV (80.0-98.0) fL MCH (27.0-32.0) pg MCHC (31.0-37.0) g/dL RDW Std Deviation (28.0-62.0) fl RDW Coeff of Shivam (11.0-15.0) % Plt Count (150-400) K/uL MPV (7.40-12.00) fL Neut % (Auto) (48.0-80.0) % Lymph % (Auto) (16.0-40.0) % [place] % (Auto) (0.0-15.0) % Eos % (Auto) (0.0-7.0) % Baso % (Auto) (0.0-1.5) % Neut # (Auto) (1.4-5.7) K/uL Lymph # (Auto) (0.6-2.4) K/uL [place] # (Auto) (0.0-0.8) K/uL Eos # (Auto) (0.0-0.7) K/uL Baso # (Auto) (0.0-0.1) K/uL Nucleated RBC % /100WBC Nucleated RBCs # K/uL Sodium 140 (136-148) mmol/L Potassium 4.5 (3.5-5.1) mmol/L Chloride 105 (98-107) mmol/L Carbon Dioxide 28.3 (21.0-32.0) mmol/L BUN 12 (7.0-18.0) mg/dL Creatinine 0.9 (0.8-1.3) mg/dL Est Cr Clr Drug Dosing 107.11 mL/min Estimated GFR (MDRD) > 60.0 ml/min Glucose 118 H (74-106) mg/dL Lactic Acid (0.4-2.0) mmol/L Calcium 8.2 L (8.5-10.1) mg/dL Total Bilirubin 0.8 (0.2-1.0) mg/dL AST 17 (15-37) IU/L ALT 45 (14-63) IU/L Alkaline Phosphatase 51 (46-116) U/L Total Protein 6.5 (6.4-8.2) g/dL Albumin 3.0 L (3.4-5.0) g/dL Globulin 3.5 (2.6-4.0) g/dL Albumin/Globulin Ratio 0.9 (0.9-1.6) Lipase (73-393) U/L SARS-CoV-2 RNA (ADAM) (NEGATIVE) Med Orders - Current: Current Medications Acetaminophen (Acetaminophen 325 Mg Tab) 650 mg PO Q6H PRN PRN Reason: Abdominal Pain Benzocaine (Benzocaine 20% Topical [place] Ud) 1 each MUCMEM Q1H PRN PRN Reason: Pain Last Admin: 07/09/20 20:59 Dose: 1 each Documented by: Benzocaine/Menthol (Benzocaine/Cetylpyridinium/Menthol Lozenge) 1 lozenge MUCMEM Q2HR PRN PRN Reason: sore throat Last Admin: 07/10/20 06:58 Dose: 1 lozenge Documented by: Lactated Ringer's (Ringers, Lactated) 1,000 mls @ 150 mls/hr IV ASDIRECTED [facility] Last Admin: 07/10/20 07:47 Dose: 150 mls/hr Documented by: Pantoprazole Sodium 40 mg/ (Sodium Chloride) 10 mls @ 300 mls/hr IV DAILY [facility] Last Admin: 07/10/20 09:45 Dose: 300 mls/hr Documented by: Oxycodone/Acetaminophen (Acetaminophen/Oxycodone 325-5 Mg Tab) 1 tab PO Q6H PRN PRN Reason: Pain Sodium Chloride (Sodium Chloride 0.9% 10 Ml Syringe) 10 ml FLUSH ASDIRECTED PRN PRN Reason: Keep Vein Open Last Admin: 07/09/20 12:32 Dose: 10 ml Documented by: Sodium Chloride (Sodium Chloride 0.9% 2.5 Ml Syringe) 2.5 ml FLUSH ASDIRECTED PRN PRN Reason: Keep Vein Open Last Admin: 07/09/20 12:32 Dose: 2.5 ml Documented by: Discontinued Medications Benzocaine (Benzocaine 20% Topical [place] Ud) 1 each MUCMEM ONETIME ONE Stop: 07/09/20 17:10 Last Admin: 07/09/20 17:22 Dose: 1 each Documented by: Bisacodyl (Bisacodyl 10 Mg Supp) 10 mg RECTAL ONETIME ONE Stop: 07/10/20 10:08 Sodium Chloride (Normal Saline) 1,000 mls @ 1,000 mls/hr IV .Bolus ONE Stop: 07/09/20 13:19 Last Admin: 07/09/20 12:32 Dose: 1,000 mls/hr Documented by: Sodium Chloride (Normal Saline) 1,000 mls @ 999 mls/hr IV .BOLUS ONE Stop: 07/09/20 17:04 Last Admin: 07/09/20 16:11 Dose: 999 mls/hr Documented by: Iopamidol (Iopamidol 755 Mg/Ml 500 Ml Multipack Bottle) 100 ml IVPUSH ONETIME STA Stop: 07/09/20 15:53 Last Admin: 07/09/20 15:52 Dose: 100 ml Documented by: Ketorolac Tromethamine (Ketorolac 30 Mg/Ml Sdv) 15 mg IVPUSH ONETIME ONE Stop: 07/09/20 13:04 Last Admin: 07/09/20 13:15 Dose: 15 mg Documented by: Morphine Sulfate (Morphine 2 Mg/Ml Syringe) 2 mg IVPUSH Q2H PRN PRN Reason: Pain Last Admin: 07/10/20 01:26 Dose: 2 mg Documented by: Ondansetron HCl (Ondansetron 4 Mg/2 Ml Sdv) 4 mg IVPUSH ONETIME ONE Stop: 07/09/20 12:28 Last Admin: 07/09/20 12:32 Dose: 4 mg Documented by: Ondansetron HCl (Ondansetron 4 Mg/2 Ml Sdv) Confirm Administered Dose 4 mg .ROUTE .STK-MED ONE Stop: 07/09/20 12:28 Last Admin: 07/09/20 12:32 Dose: Not Given Documented by: - Exam GI/Abdominal Exam: Soft (decrease in distention, still soft, nt, v diminished bowel sound) Sepsis Event Note - Evaluation Sepsis Screening Result: No Definite Risk - Focused Exam Vital Signs: Vital Signs Temp Pulse Resp BP Pulse Ox 07/10/20 07:43 98.3 F 82 17 129/77 93 L 07/10/20 04:39 98.6 F 77 16 119/71 95 07/10/20 01:31 98.4 F 85 16 123/70 94 L - Problem List Review Problem List Initiated/Reviewed/Updated: Yes - My Orders Last 24 Hours: Active Orders 24 hr Category Date Time Status Admission Status [Patient Status] [ADT] Stat ADT 07/09/20 17:09 Active Admission Status [Patient Status] [ADT] Stat ADT 07/09/20 17:23 Active Antiembolic Devices [RC] PER UNIT ROUTINE Care 07/10/20 09:06 Active Gastrointestinal Tube Mgmt [RC] ASDIRECTED Care 07/09/20 16:10 Active NG [Gastrointestinal Tube Mgmt] [RC] ASDIRECTED Care 07/09/20 17:13 Active Notify Provider Consults [RC] ASDIRECTED Care 07/09/20 17:18 Active Consult to Physician [CONS] Stat Cons 07/09/20 17:18 Active NPO Now [Nothing per Oral Now Diet] [DIET] Diet 07/10/20 Breakfast Active CBC WITH AUTO DIFF [HEME] AM Lab 07/11/20 05:11 Ordered COMPREHENSIVE METABOLIC PN,CMP [CHEM] AM Lab 07/11/20 05:11 Ordered Acetaminophen [TylenoL] Med 07/09/20 17:14 Active 650 mg PO Q6H PRN Acetaminophen/oxyCODONE [Percocet 325-5 MG] Med 07/09/20 20:25 Active 1 tab PO Q6H PRN Benzocaine [Hurricaine One 20%] Med 07/09/20 20:26 Active 1 each MUCMEM Q1H PRN Benzocaine/Cetylpyrd/Menthol [Cepacol Sore Throat] Med 07/09/20 17:16 Active 1 lozenge MUCMEM Q2HR PRN Lactated Ringers [Ringers, Lactated] 1,000 ml Med 07/09/20 17:15 Active IV ASDIRECTED Pantoprazole [ProTONIX IV] 40 mg Med 07/10/20 09:00 Active Sodium Chloride 0.9% [Normal Saline] 10 ml IV DAILY Sodium Chloride 0.9% [Saline Flush] Med 07/09/20 12:20 Active 10 ml FLUSH ASDIRECTED PRN Sodium Chloride 0.9% [Saline Flush] Med 07/09/20 12:20 Active 2.5 ml FLUSH ASDIRECTED PRN Nasogastric Orogastric Tube Insertion [OM.PC] Stat Ot 07/09/20 16:09 Ordered SCD [Sequential Compression Device] [OM.PC] Routine Oth 07/10/20 09:06 Ordered Saline Lock Insert [OM.PC] Stat Ot 07/09/20 12:20 Ordered Medication Orders Acetaminophen (Acetaminophen 325 Mg Tab) 650 mg PO Q6H PRN PRN Reason: Abdominal Pain Benzocaine (Benzocaine 20% Topical [place] Ud) 1 each MUCMEM Q1H PRN PRN Reason: Pain Last Admin: 07/09/20 20:59 Dose: 1 each Documented by: VINCE Benzocaine/Menthol (Benzocaine/Cetylpyridinium/Menthol Lozenge) 1 lozenge MUCMEM Q2HR PRN PRN Reason: sore throat Last Admin: 07/10/20 06:58 Dose: 1 lozenge Documented by: Admin: 07/09/20 21:39 Dose: 1 lozenge Documented by: VINCE Lactated Ringer's (Ringers, Lactated) 1,000 mls @ 150 mls/hr IV ASDIRECTED [facility] Last Admin: 07/10/20 07:47 Dose: 150 mls/hr Documented by: Infusion: 07/10/20 07:47 Dose: 150 mls/hr Documented by: Admin: 07/10/20 01:34 Dose: 150 mls/hr Documented by: Infusion: 07/10/20 01:26 Dose: 150 mls/hr Documented by: Admin: 07/09/20 18:45 Dose: 150 mls/hr Documented by: CIELO Pantoprazole Sodium 40 mg/ (Sodium Chloride) 10 mls @ 300 mls/hr IV DAILY [facility] Last Admin: 07/10/20 09:45 Dose: 300 mls/hr Documented by: CIELO Oxycodone/Acetaminophen (Acetaminophen/Oxycodone 325-5 Mg Tab) 1 tab PO Q6H PRN PRN Reason: Pain Sodium Chloride (Sodium Chloride 0.9% 10 Ml Syringe) 10 ml FLUSH ASDIRECTED PRN PRN Reason: Keep Vein Open Last Admin: 07/09/20 12:32 Dose: 10 ml Documented by: SUMEET Sodium Chloride (Sodium Chloride 0.9% 2.5 Ml Syringe) 2.5 ml FLUSH ASDIRECTED PRN PRN Reason: Keep Vein Open Last Admin: 07/09/20 12:32 Dose: 2.5 ml Documented by: SUMEET - Assessment Assessment (Free Text/Narrative):: continue ngt decompression, dulcolax per rectum X 1; wbc 9; continue to deny any abd pain - Plan Plan (Free Text/Narrative):: continue ngt decompression, dulcolax per rectum X 1; wbc 9; continue to deny any abd pain
[2020-07-10] MEDS ORDERED: Ondansetron 4 MG/2 ML SDV IVPUSH PRN ×3 (14:56→23:47)
[2020-07-10 19:51] LABS: BLOOD UREA NITROGEN,BUN 13 mg/dL (7.0-18.0); CARBON DIOXIDE,CO2 28.1 mmol/L (21.0-32.0); CHLORIDE,CL 103 mmol/L (98-107); GLUCOSE RANDOM 109 mg/dL (74-106); POTASSIUM,K 3.9 mmol/L (3.5-5.1); SODIUM,NA 140 mmol/L (136-148)
--- NOTE | 2020-07-10 19:58 | CT ---
For Patients: As a result of the Century Cures Act, medical imaging exams and procedure reports are released immediately into your electronic medical record. You may view this report before your referring provider. If you have questions, please contact your health care provider. Indication: Abdominal pain Technique: Volumetric multidetector CT images of the abdomen and pelvis were without the administration of intravenous contrast. Comparison: CT abdomen and pelvis July 09, 2020 Findings: There is demonstration of consolidative opacity in the right lung base with a small right basilar pleural effusion. There is mild to moderate perihepatic fluid otherwise the liver is stable in size and attenuation. Extensive gallstones are seen throughout the gallbladder with excreted previously administered contrast. There is no significant common biliary ductal dilatation or abrupt cut off. The spleen is normal in attenuation and size. There is demonstration of a nasogastric tube with the tip in the distal esophagus, recommend advancement into the gastric lumen which is moderately distended with previously administered oral contrast. The pancreas is normal in attenuation without significant atrophy. The adrenal glands are unremarkable. There is no evidence of radiopaque calculus or hydronephrosis. Again seen are multiple dilated contrast and fluid filled loops of central small bowel consistent with small bowel obstruction with apparent transition point in the right lower quadrant. Otherwise the distal colon is decompressed. The appendix is unremarkable. There is moderate central mesenteric edema. There is no evidence of pathologic lymph node. The aorta is nonaneurysmal. There is no significant atherosclerotic disease appreciated. The solid pelvic viscera are grossly unremarkable. There is no free fluid or free air. The anterior abdominal wall is intact without significant hernias. The lumbar vertebral body heights are grossly maintained in satisfactory alignment without evidence of displaced fracture, lytic or blastic lesion. Impression: Demonstration of nasogastric tube with the tip in the distal esophagus recommend advancement approximately 8 centimeters into the gastric lumen. There is persistent marked dilatation of central small bowel loops with moderate mesenteric edema and a transition point in the right lower quadrant consistent with bowel obstruction. There is no definite evidence of pneumatosis or portal venous gas at this time. Increasing right basilar pleural effusion with adjacent compressive atelectasis as well as increased perihepatic fluid. Stable cholelithiasis. Please note that all CT scans at this facility use dose modulation, iterative reconstruction, and/or weight-based dosing when appropriate to reduce radiation dose to as low as reasonably achievable. Dictated by Bubba Patrick MD @ 07/10/2020 7:57:[address] Bubba Patrick @ Jul 10 2020 7:57PM
--- NOTE | 2020-07-10 20:15 | PCM.SN.2 ---
- Free Text/Narrative Note: called to see pt, re emisis around ngt and abd pain increased to 10 out of 10; repeat lab works and ct a/p; hi grade obstruction persisted and now with mod fluid around r gutter. Failed ngt decompression, and lactic acid is 2.0 and hi limit of normal, and emisis around ngt tube, pt is now for emergency exploratory laparotomy, possible bowel resection. plan dw pt, and pt concur and proceed with surgery
[2020-07-10] MEDS ORDERED: cefOXitin 2 GM in Premix Bag 1 BAG IV ONE (20:16)
[2020-07-10] MEDS ORDERED: Acetaminophen 1,000 MG in Premix Bag 1 BAG IV PRN (20:36)
[2020-07-10] MEDS ORDERED: fentaNYL 100 MCG/2 ML SDV IVPUSH PRN (20:36)
--- NOTE | 2020-07-10 20:36 | PCM.PREANE ---
Preanesthetic Assessment - Anesthesia/Transfusion/Family Hx Anesthesia History: Prior Anesthesia Without Reaction Family History of Anesthesia Reaction: No Transfusion History: No Prior Transfusion(s) - Physical Assessment NPO Status Date: 07/10/20 NPO Status Time: 00:05 Vital Signs: Last Vital Signs Temp 36.0 C L 07/10/20 16:00 Pulse 81 07/10/20 19:45 Resp 18 07/10/20 19:45 BP 132/80 07/10/20 19:45 Pulse Ox 94 L 07/10/20 16:00 Height: 1.7 m Weight: 81.102 kg ASA Class: 1E - Lab Values: Laboratory Last Values WBC 9.10 K/uL (4.0-11.0) 07/10/20 19:51 RBC 4.90 M/uL (4.50-5.90) 07/10/20 19:51 Hgb 15.0 g/dL (13.0-17.0) 07/10/20 19:51 Hct 44.3 % (38.0-50.0) 07/10/20 19:51 MCV 90.4 fL (80.0-98.0) 07/10/20 19:51 MCH 30.6 pg (27.0-32.0) 07/10/20 19:51 MCHC 33.9 g/dL (31.0-37.0) 07/10/20 19:51 RDW Std Deviation 47.6 fl (28.0-62.0) 07/10/20 19:51 RDW Coeff of Shivam 14 % (11.0-15.0) 07/10/20 19:51 Plt Count 267 K/uL (150-400) 07/10/20 19:51 MPV 9.90 fL (7.40-12.00) 07/10/20 19:51 Neut % (Auto) 74.0 % (48.0-80.0) 07/10/20 19:51 Lymph % (Auto) 11.0 % (16.0-40.0) L 07/10/20 19:51 [place] % (Auto) 14.9 % (0.0-15.0) 07/10/20 19:51 Eos % (Auto) 0.0 % (0.0-7.0) 07/10/20 19:51 Baso % (Auto) 0.1 % (0.0-1.5) 07/10/20 19:51 Neut # (Auto) 6.7 K/uL (1.4-5.7) H 07/10/20 19:51 Lymph # (Auto) 1.0 K/uL (0.6-2.4) 07/10/20 19:51 [place] # (Auto) 1.4 K/uL (0.0-0.8) H 07/10/20 19:51 Eos # (Auto) 0.0 K/uL (0.0-0.7) 07/10/20 19:51 Baso # (Auto) 0.0 K/uL (0.0-0.1) 07/10/20 19:51 Nucleated RBC % 0.0 /100WBC 07/10/20 19:51 Nucleated RBCs # 0 K/uL 07/10/20 19:51 Sodium 140 mmol/L (136-148) 07/10/20 19:17 Potassium 3.9 mmol/L (3.5-5.1) 07/10/20 19:17 Chloride 103 mmol/L (98-107) 07/10/20 19:17 Carbon Dioxide 28.1 mmol/L (21.0-32.0) 07/10/20 19:17 BUN 13 mg/dL (7.0-18.0) 07/10/20 19:17 Creatinine 0.9 mg/dL (0.8-1.3) 07/10/20 19:17 Est Cr Clr Drug Dosing 107.11 mL/min 07/10/20 19:17 Estimated GFR (MDRD) > 60.0 ml/min 07/10/20 19:17 Glucose 109 mg/dL (74-106) H 07/10/20 19:17 Lactic Acid 2.0 mmol/L (0.4-2.0) 07/09/20 16:30 Calcium 8.3 mg/dL (8.5-10.1) L 07/10/20 19:17 Total Bilirubin 0.8 mg/dL (0.2-1.0) 07/10/20 19:17 AST 22 IU/L (15-37) 07/10/20 19:17 ALT 44 IU/L (14-63) 07/10/20 19:17 Alkaline Phosphatase 52 U/L (46-116) 07/10/20 19:17 Total Protein 6.8 g/dL (6.4-8.2) 07/10/20 19:17 Albumin 3.1 g/dL (3.4-5.0) L 07/10/20 19:17 Globulin 3.7 g/dL (2.6-4.0) 07/10/20 19:17 Albumin/Globulin Ratio 0.8 (0.9-1.6) L 07/10/20 19:17 Lipase 38 U/L (73-393) L 07/09/20 12:35 SARS-CoV-2 RNA (ADAM) NEGATIVE (NEGATIVE) 07/09/20 16:46 - Allergies Allergies/Adverse Reactions: Allergies Allergy/AdvReac Type Severity Reaction Status Date / Time No Known Allergies Allergy Verified 07/09/20 18:37 - Acknowledgements Anesthesia Type Planned: General Anesthesia Pt an Appropriate Candidate for the Planned Anesthesia: Yes Alternatives and Risks of Anesthesia Discussed w Pt/Guardian: Yes Pt/Guardian Understands and Agrees with Anesthesia Plan: Yes PreAnesthesia Questionnaire HEENT History: Reports: None Cardiovascular History: Reports: None Respiratory History: Reports: None Gastrointestinal History: Reports: None Genitourinary History: Reports: None Musculoskeletal History: Reports: None Neurological History: Reports: None Psychiatric History: Reports: None Endocrine/Metabolic History: Reports: None Hematologic History: Reports: None Immunologic History: Reports: None Oncologic (Cancer) History: Reports: None Dermatologic History: Reports: None - Infectious Disease History Infectious Disease History: Reports: None - Past Surgical History Head Surgeries/Procedures: Reports: None HEENT Surgical History: Reports: None Cardiovascular Surgical History: Reports: None Respiratory Surgical History: Reports: None GI Surgical History: Reports: Hernia, Abdominal Male Surgical History: Reports: None Endocrine Surgical History: Reports: None Neurological Surgical History: Reports: None Musculoskeletal Surgical History: Reports: None Oncologic Surgical History: Reports: None Dermatological Surgical History: Reports: None - SUBSTANCE USE Tobacco Use Status *Q: Never Tobacco User Second Hand Smoke Exposure: No Recreational Drug Use History: No - HOME MEDS Home Medications: Home Meds . [No Known Home Meds] 07/09/20 [History] - CURRENT (IN HOUSE) MEDS Current Meds: Current Medications Acetaminophen (Acetaminophen 325 Mg Tab) 650 mg PO Q6H PRN PRN Reason: Abdominal Pain Benzocaine (Benzocaine 20% Topical [place] Ud) 1 each MUCMEM Q1H PRN PRN Reason: Pain Last Admin: 07/09/20 20:59 Dose: 1 each Documented by: Benzocaine/Menthol (Benzocaine/Cetylpyridinium/Menthol Lozenge) 1 lozenge MUCMEM Q2HR PRN PRN Reason: sore throat Last Admin: 07/10/20 06:58 Dose: 1 lozenge Documented by: Lactated Ringer's (Ringers, Lactated) 1,000 mls @ 150 mls/hr IV ASDIRECTED [facility] Last Admin: 07/10/20 14:48 Dose: 150 mls/hr Documented by: Pantoprazole Sodium 40 mg/ (Sodium Chloride) 10 mls @ 300 mls/hr IV DAILY [facility] Last Admin: 07/10/20 09:45 Dose: 300 mls/hr Documented by: Cefoxitin Sodium 2 gm/ Premix 50 mls @ 100 mls/hr IV ONETIME ONE Stop: 07/10/20 20:45 Ondansetron HCl (Ondansetron 4 Mg/2 Ml Sdv) 4 mg IVPUSH Q8H PRN PRN Reason: Nausea Last Admin: 07/10/20 15:14 Dose: 4 mg Documented by: Oxycodone/Acetaminophen (Acetaminophen/Oxycodone 325-5 Mg Tab) 1 tab PO Q6H PRN PRN Reason: Pain Sodium Chloride (Sodium Chloride 0.9% 10 Ml Syringe) 10 ml FLUSH ASDIRECTED PRN PRN Reason: Keep Vein Open Last Admin: 07/09/20 12:32 Dose: 10 ml Documented by: Sodium Chloride (Sodium Chloride 0.9% 2.5 Ml Syringe) 2.5 ml FLUSH ASDIRECTED PRN PRN Reason: Keep Vein Open Last Admin: 07/09/20 12:32 Dose: 2.5 ml Documented by: Discontinued Medications Benzocaine (Benzocaine 20% Topical [place] Ud) 1 each MUCMEM ONETIME ONE Stop: 07/09/20 17:10 Last Admin: 07/09/20 17:22 Dose: 1 each Documented by: Bisacodyl (Bisacodyl 10 Mg Supp) 10 mg RECTAL ONETIME ONE Stop: 07/10/20 10:08 Last Admin: 07/10/20 10:37 Dose: 10 mg Documented by: Sodium Chloride (Normal Saline) 1,000 mls @ 1,000 mls/hr IV .Bolus ONE Stop: 07/09/20 13:19 Last Admin: 07/09/20 12:32 Dose: 1,000 mls/hr Documented by: Sodium Chloride (Normal Saline) 1,000 mls @ 999 mls/hr IV .BOLUS ONE Stop: 07/09/20 17:04 Last Admin: 07/09/20 16:11 Dose: 999 mls/hr Documented by: Iopamidol (Iopamidol 755 Mg/Ml 500 Ml Multipack Bottle) 100 ml IVPUSH ONETIME STA Stop: 07/09/20 15:53 Last Admin: 07/09/20 15:52 Dose: 100 ml Documented by: Ketorolac Tromethamine (Ketorolac 30 Mg/Ml Sdv) 15 mg IVPUSH ONETIME ONE Stop: 07/09/20 13:04 Last Admin: 07/09/20 13:15 Dose: 15 mg Documented by: Morphine Sulfate (Morphine 2 Mg/Ml Syringe) 2 mg IVPUSH Q2H PRN PRN Reason: Pain Last Admin: 07/10/20 01:26 Dose: 2 mg Documented by: Ondansetron HCl (Ondansetron 4 Mg/2 Ml Sdv) 4 mg IVPUSH ONETIME ONE Stop: 07/09/20 12:28 Last Admin: 07/09/20 12:32 Dose: 4 mg Documented by: Ondansetron HCl (Ondansetron 4 Mg/2 Ml Sdv) Confirm Administered Dose 4 mg .ROUTE .STK-MED ONE Stop: 07/09/20 12:28 Last Admin: 07/09/20 12:32 Dose: Not Given Documented by:
[2020-07-10] MEDS ORDERED: Midazolam 1 MG/ML 2 ML SDV ONE (20:43)
[2020-07-10] MEDS ORDERED: Propofol 200 MG/20 ML SDV ONE (20:43)
[2020-07-10] MEDS ORDERED: fentaNYL 250 MCG/5 ML SDV ONE (20:44)
[2020-07-10] MEDS ORDERED: Lidocaine 2% 5 ML SDV ONE (20:45)
[2020-07-10] MEDS ORDERED: Succinylcholine/Sod PF 100 MG/5 ML SYRINGE IV ONE (20:45)
[2020-07-10] MEDS ORDERED: Ketorolac 30 MG/ML SDV ONE (20:45)
[2020-07-10] MEDS ORDERED: Rocuronium Bromide 50 MG/5 ML Syringe ONE ×2 (20:45→22:06)
[2020-07-10] MEDS ORDERED: Glycopyrrolate 0.2 MG/ML SDV ONE (20:45)
[2020-07-10] MEDS ORDERED: Sugammadex Sodium 200 MG/2 ML VIAL ONE (20:45)
[2020-07-10] MEDS ORDERED: Ondansetron 4 MG/2 ML SDV ONE (20:45)
[2020-07-10] MEDS ORDERED: Bupivacaine 25%/EPINEPHrine/PF 30 ML ONE (20:47)
[2020-07-10] MEDS ORDERED: HYDROmorphone 2 MG/ML Syringe ONE (21:56)
--- NOTE | 2020-07-10 23:43 | PCM.OPNOTE ---
- General Post-Op/Procedure Note Date of Surgery/Procedure: 07/10/20 Operative Procedure(s): 1) exploratory laparotomy. 2) diverticulectomy. 3) incidental appendectomy Findings: large diverticulum with a small tip and a fibrous band caused constricture and thus SBO; 2 more adhesions from omentum also caused bowel obstruction; diverticulectomy and incidental appendectomy, no other bowel resection was performed; [id number] Pre Op Diagnosis: SBO Post-Op Diagnosis: Same Primary Surgeon: Arthur Moore Pathology: diverticulectomy with fibrous band incidental appendectomy Complications: None Condition: Fair Free Text/Narrative:: Intake & Output 07/10/20 07/10/20 07/11/20 14:59 22:59 06:59 Intake Total 1770 Output Total 900 Balance 870
[2020-07-10] MEDS ORDERED: HYDROmorphone/Normal Saline 10 MG/50 ML PCA IV PRN (23:47)
[2020-07-10] MEDS ORDERED: diphenhydrAMINE 25 MG Cap PO PRN (23:47)
[2020-07-10] MEDS ORDERED: Naloxone 0.4 MG/ML Syringe IVPUSH PRN (23:47)
[2020-07-10] MEDS ORDERED: diphenhydrAMINE 50 MG/ML SDV IVPUSH PRN (23:47)
--- NOTE | 2020-07-10 23:57 | PCM.SN.2 ---
- Free Text/Narrative Note: increased abd pain w emisis, pt was taken to surgery; s/p ex lap; pt transferred to my service; thanks for hospitalist consult input
--- NOTE | 2020-07-11 00:21 | PCM.POSTAN ---
POST ANESTHESIA ASSESSMENT - MENTAL STATUS Mental Status: Alert (Signed 0025 July 11 2020) - VITAL SIGNS Vital Signs: Last Vital Signs Temp 36.6 C 07/10/20 23:40 Pulse 103 H 07/11/20 00:06 Resp 9 L 07/11/20 00:06 BP 115/85 07/11/20 00:06 Pulse Ox 93 L 07/11/20 00:06 - RESPIRATORY Respiratory Status: Respiratory Rate WNL - CARDIOVASCULAR CV Status: Pulse Rate WNL - GASTROINTESTINAL GI Status: No Symptoms - POST OP HYDRATION Hydration Status: Adequate & Stable
--- NOTE | 2020-07-11 00:30 | OR ---
SURGEON: Arthur Moore MD DATE OF PROCEDURE: 07/10/2020 PREOPERATIVE DIAGNOSIS: Small bowel obstruction. POSTOPERATIVE DIAGNOSIS: Small bowel obstruction. PROCEDURE PERFORMED: 1. Exploratory laparotomy. 2. Diverticulectomy. 3. Appendectomy. COMPLICATION: None. FINDINGS: The patient has three obstructions. Surprisingly, he is not that painful, suggests that it has being going on for a long time. The first obstruction was a diverticulum with adhesion band obstructing along a portion of the small bowel. Two obstructions were from the omentum that also formed adhesion to the right lower quadrant and causing constriction to another portion of the small bowel. Appendix looked fine, resected anyway. No other bowel resection performed. BRIEF OFFICE NOTE: The patient is a 34-year-old gentleman who presented with two to three days of nausea, vomiting, and severe abdominal pain, and the only abdominal surgery the patient had was a left inguinal hernia repair at [age] years old, so basically this is a virgin abdomen. NG tube decompression for 36 hours did not work and pain intensified. The patient was then taken to the operating room. DESCRIPTION OF PROCEDURE: The patient was taken to the operating room and placed in supine position. Upon induction of general endotracheal anesthesia, the patient's abdomen was prepped and draped in a sterile fashion. A piece of Opsite was placed on the skin prophylactically, and Mefoxin 2 g IV was given once prophylactically. After assessment of appropriate landmarks, a midline incision beveled to the level of the umbilicus and down to the suprapubic area was made, and we then carefully entered into the peritoneum through the midline incision. Because of the distention of the bowel, extreme care was used to enter the peritoneum. Upon entering the peritoneum, immediately encountered a large piece of distended bowel covered by the omentum, and exploration noted that there was a big diverticulum, almost close to about 8 x 4 cm, and there was a small tail at the tip that formed a ligament and the ligament attached to the pelvis, and this caused a stricture to a portion of the bowel and caused a small bowel obstruction. The bowel looked very distended prior to the constriction and almost collapsed past the constriction. The band was cut, and the bowel immediately sprung back to life and peristalsis. No signs or symptoms of any ischemia. Continued to work on the bowel and noted that the omentum was covering the bowel and one omentum also caused two places of stricture, again probably from the inflammatory reaction due to the diverticulum and the fibrous band. The omentum formed two more adhesions, which were very grossly solid suggesting it had been more than three to six months, and they also cause stricture to the bowel. This was released. Then, the bowel was run from the TI all the way to the epigastrium two times, and there was no more stricture. NG tube position was confirmed. Appendix looked lillywhite but removed it anyway. Using a GI-55, the diverticulum was resected, and upon resection, the lumen was found to be a pretty large donut, not at risk of stricture. Then, attention was turned to the appendix. The appendix was transected with [id number], and also the mesoappendix was transected. Upon examination, good hemostasis. This was then followed with extensive irrigation, and the omentum was pulled down to the pelvis. The abdominal cavity was closed by use of #1 double-strand PDS followed by skin gabriel and appropriate dressing. The patient was awakened, extubated, and transferred to recovery room in a hemodynamically stable condition. Prior to surgery, time-out was called, patient identified, procedure identified, Mefoxin 2 g IV was given prophylactically. Dr. Moore was present throughout the whole procedure. There was no intraoperative complication. LAURA / ABEL /[id number] MTDD
[2020-07-11] MEDS ORDERED: Morphine 4 MG/ML Syringe IVPUSH PRN (01:55)
[2020-07-11] MEDS: Lactated Ringers 1,000 ML IV SCH ×4 (02:10→22:33)
[2020-07-11] MEDS: Benzocaine/Cetylpyridinium/Menthol Lozenge MUCMEM PRN ×3 (04:13→08:33)
[2020-07-11 06:24] LABS: BLOOD UREA NITROGEN,BUN 13 mg/dL (7.0-18.0); CARBON DIOXIDE,CO2 29.7 mmol/L (21.0-32.0); CHLORIDE,CL 106 mmol/L (98-107); GLUCOSE RANDOM 107 mg/dL (74-106); POTASSIUM,K 4.2 mmol/L (3.5-5.1); SODIUM,NA 140 mmol/L (136-148)
--- NOTE | 2020-07-11 07:13 | PCM48HPAN ---
Post Anesthesia Note - EVALUATION WITHIN 48HRS OF ANESTHETIC Vital Signs in Normal Range: Yes Patient Participated in Evaluation: Yes Respiratory Function Stable: Yes Airway Patent: Yes Cardiovascular Function Stable: Yes Hydration Status Stable: Yes Pain Control Satisfactory: Yes Nausea and Vomiting Control Satisfactory: Yes Mental Status Recovered: Yes Vital Signs: Last Vital Signs Temp 36.1 C 07/11/20 07:01 Pulse 96 07/11/20 07:01 Resp 16 07/11/20 07:01 BP 129/78 07/11/20 07:01 Pulse Ox 96 07/11/20 07:01
[2020-07-11] MEDS: Pantoprazole 40 MG in Sodium Chloride 0.9% 10 ML IV SCH (08:48)
[2020-07-11] MEDS ORDERED: Morphine Sulfate in 0.9 % NaCl 50 MG/50 ML PCA Bag IV SCH (09:15)
--- NOTE | 2020-07-11 13:34 | PCM.SURGPN ---
- General Info Date of Service: 07/11/20 POD#: 1 Post-Op Diagnosis: SBO Functional Status: Reports: Pain Controlled - Review of Systems General: Reports: No Symptoms (no flatus; avss, did not use any pain meds; ngt 550 in 12 hr; oob, amb) Pulmonary: Reports: No Symptoms Gastrointestinal: Reports: No Symptoms - Patient Data Vitals - Most Recent: Last Vital Signs Temp 97.4 F 07/11/20 11:20 Pulse 86 07/11/20 11:20 Resp 16 07/11/20 11:20 BP 134/74 07/11/20 11:20 Pulse Ox 94 L 07/11/20 11:20 Weight - Most Recent: 178 lb 12.8 oz I&O - Last 24 Hours: Intake & Output 07/10/20 07/11/20 07/11/20 22:59 06:59 14:59 Intake Total 1770 1950 Output Total 1150 150 Balance 620 1800 @ Lab Results Last 24 Hrs: Laboratory Results - last 24 hr 07/10/20 07/10/20 07/11/20 Range/Units 19:17 19:51 05:25 WBC 9.10 7.17 (4.0-11.0) K/uL RBC 4.90 4.88 (4.50-5.90) M/uL Hgb 15.0 14.5 (13.0-17.0) g/dL Hct 44.3 44.5 (38.0-50.0) % MCV 90.4 91.2 (80.0-98.0) fL MCH 30.6 29.7 (27.0-32.0) pg MCHC 33.9 32.6 (31.0-37.0) g/dL RDW Std Deviation 47.6 48.4 (28.0-62.0) fl RDW Coeff of Shivam 14 14 (11.0-15.0) % Plt Count 267 254 (150-400) K/uL MPV 9.90 10.30 (7.40-12.00) fL Neut % (Auto) 74.0 63.3 (48.0-80.0) % Lymph % (Auto) 11.0 L 20.6 (16.0-40.0) % Tripp % (Auto) 14.9 15.9 H (0.0-15.0) % Eos % (Auto) 0.0 0.1 (0.0-7.0) % Baso % (Auto) 0.1 0.1 (0.0-1.5) % Neut # (Auto) 6.7 H 4.5 (1.4-5.7) K/uL Lymph # (Auto) 1.0 1.5 (0.6-2.4) K/uL Tripp # (Auto) 1.4 H 1.1 H (0.0-0.8) K/uL Eos # (Auto) 0.0 0.0 (0.0-0.7) K/uL Baso # (Auto) 0.0 0.0 (0.0-0.1) K/uL Nucleated RBC % 0.0 0.0 /100WBC Nucleated RBCs # 0 0 K/uL Sodium 140 (136-148) mmol/L Potassium 3.9 (3.5-5.1) mmol/L Chloride 103 (98-107) mmol/L Carbon Dioxide 28.1 (21.0-32.0) mmol/L BUN 13 (7.0-18.0) mg/dL Creatinine 0.9 (0.8-1.3) mg/dL Est Cr Clr Drug Dosing 107.11 mL/min Estimated GFR (MDRD) > 60.0 ml/min Glucose 109 H (74-106) mg/dL Calcium 8.3 L (8.5-10.1) mg/dL Total Bilirubin 0.8 (0.2-1.0) mg/dL AST 22 (15-37) IU/L ALT 44 (14-63) IU/L Alkaline Phosphatase 52 (46-116) U/L Total Protein 6.8 (6.4-8.2) g/dL Albumin 3.1 L (3.4-5.0) g/dL Globulin 3.7 (2.6-4.0) g/dL Albumin/Globulin Ratio 0.8 L (0.9-1.6) 07/11/20 Range/Units 05:25 WBC (4.0-11.0) K/uL RBC (4.50-5.90) M/uL Hgb (13.0-17.0) g/dL Hct (38.0-50.0) % MCV (80.0-98.0) fL MCH (27.0-32.0) pg MCHC (31.0-37.0) g/dL RDW Std Deviation (28.0-62.0) fl RDW Coeff of Shivam (11.0-15.0) % Plt Count (150-400) K/uL MPV (7.40-12.00) fL Neut % (Auto) (48.0-80.0) % Lymph % (Auto) (16.0-40.0) % Tripp % (Auto) (0.0-15.0) % Eos % (Auto) (0.0-7.0) % Baso % (Auto) (0.0-1.5) % Neut # (Auto) (1.4-5.7) K/uL Lymph # (Auto) (0.6-2.4) K/uL Tripp # (Auto) (0.0-0.8) K/uL Eos # (Auto) (0.0-0.7) K/uL Baso # (Auto) (0.0-0.1) K/uL Nucleated RBC % /100WBC Nucleated RBCs # K/uL Sodium 140 (136-148) mmol/L Potassium 4.2 (3.5-5.1) mmol/L Chloride 106 (98-107) mmol/L Carbon Dioxide 29.7 (21.0-32.0) mmol/L BUN 13 (7.0-18.0) mg/dL Creatinine 0.9 (0.8-1.3) mg/dL Est Cr Clr Drug Dosing 106.09 mL/min Estimated GFR (MDRD) > 60.0 ml/min Glucose 107 H (74-106) mg/dL Calcium 7.7 L (8.5-10.1) mg/dL Total Bilirubin 0.8 (0.2-1.0) mg/dL AST 21 (15-37) IU/L ALT 38 (14-63) IU/L Alkaline Phosphatase 41 L (46-116) U/L Total Protein 5.5 L (6.4-8.2) g/dL Albumin 2.5 L (3.4-5.0) g/dL Globulin 3.0 (2.6-4.0) g/dL Albumin/Globulin Ratio 0.8 L (0.9-1.6) Med Orders - Current: Current Medications Acetaminophen (Acetaminophen 325 Mg Tab) 650 mg PO Q6H PRN PRN Reason: Abdominal Pain Benzocaine (Benzocaine 20% Topical [place] Ud) 1 each MUCMEM Q1H PRN PRN Reason: Pain Last Admin: 07/09/20 20:59 Dose: 1 each Documented by: Benzocaine/Menthol (Benzocaine/Cetylpyridinium/Menthol Lozenge) 1 lozenge MUCMEM Q2HR PRN PRN Reason: sore throat Last Admin: 07/11/20 08:33 Dose: 1 lozenge Documented by: Diazepam (Diazepam 10 Mg/2 Ml Syringe) 2 mg IVPUSH Q12H PRN PRN Reason: Spasms Diphenhydramine HCl (Diphenhydramine 50 Mg/Ml Sdv) 25 mg IVPUSH Q6H PRN PRN Reason: Itching Diphenhydramine HCl (Diphenhydramine 25 Mg Cap) 25 mg PO Q6H PRN PRN Reason: Itching Pantoprazole Sodium 40 mg/ (Sodium Chloride) 10 mls @ 300 mls/hr IV DAILY CURRY Last Admin: 07/11/20 08:48 Dose: 300 mls/hr Documented by: Lactated Ringer's (Ringers, Lactated) 1,000 mls @ 150 mls/hr IV ASDIRECTED CURRY Last Admin: 07/11/20 08:49 Dose: 150 mls/hr Documented by: Morphine Sulfate (Morphine 4 Mg/Ml Syringe) 3 mg IVPUSH Q4H PRN PRN Reason: Pain Morphine Sulfate/Sodium Chloride (Morphine Sulfate In 0.9 % Nacl 50 Mg/50 Ml [employer] Bag) 0 mg IV ASDIRECTED CURRY; Protocol Last Admin: 07/11/20 09:55 Dose: 1 mg Documented by: Naloxone HCl (Naloxone 0.4 Mg/Ml Syringe) 0.04 mg IVPUSH Q3M PRN PRN Reason: Respiratory Depression Ondansetron HCl (Ondansetron 4 Mg/2 Ml Sdv) 4 mg IVPUSH Q8H PRN PRN Reason: Nausea/Vomiting Ondansetron HCl (Ondansetron 4 Mg/2 Ml Sdv) 4 mg IVPUSH Q6H PRN PRN Reason: Nausea/Vomiting Oxycodone/Acetaminophen (Acetaminophen/Oxycodone 325-5 Mg Tab) 1 tab PO Q6H PRN PRN Reason: Pain Sodium Chloride (Sodium Chloride 0.9% 10 Ml Syringe) 10 ml FLUSH ASDIRECTED PRN PRN Reason: Keep Vein Open Last Admin: 07/09/20 12:32 Dose: 10 ml Documented by: Sodium Chloride (Sodium Chloride 0.9% 2.5 Ml Syringe) 2.5 ml FLUSH ASDIRECTED PRN PRN Reason: Keep Vein Open Last Admin: 07/09/20 12:32 Dose: 2.5 ml Documented by: Discontinued Medications Benzocaine (Benzocaine 20% Topical [place] Ud) 1 each MUCMEM ONETIME ONE Stop: 07/09/20 17:10 Last Admin: 07/09/20 17:22 Dose: 1 each Documented by: Bisacodyl (Bisacodyl 10 Mg Supp) 10 mg RECTAL ONETIME ONE Stop: 07/10/20 10:08 Last Admin: 07/10/20 10:37 Dose: 10 mg Documented by: Fentanyl (Fentanyl 100 Mcg/2 Ml Sdv) 50 mcg IVPUSH Q5M PRN PRN Reason: Pain Fentanyl (Fentanyl 250 Mcg/5 Ml Sdv) Confirm Administered Dose 250 mcg .ROUTE .STK-MED ONE Stop: 07/10/20 20:45 Glycopyrrolate (Glycopyrrolate 0.2 Mg/Ml Sdv) Confirm Administered Dose 0.2 mg .ROUTE .STK-MED ONE Stop: 07/10/20 20:46 Hydromorphone HCl (Hydromorphone 2 Mg/Ml Syringe) Confirm Administered Dose 2 mg .ROUTE .STK-MED ONE Stop: 07/10/20 21:57 Sodium Chloride (Normal Saline) 1,000 mls @ 1,000 mls/hr IV .Bolus ONE Stop: 07/09/20 13:19 Last Admin: 07/09/20 12:32 Dose: 1,000 mls/hr Documented by: Sodium Chloride (Normal Saline) 1,000 mls @ 999 mls/hr IV .BOLUS ONE Stop: 07/09/20 17:04 Last Admin: 07/09/20 16:11 Dose: 999 mls/hr Documented by: Lactated Ringer's (Ringers, Lactated) 1,000 mls @ 150 mls/hr IV ASDIRECTED CURRY Last Admin: 07/10/20 14:48 Dose: 150 mls/hr Documented by: Cefoxitin Sodium 2 gm/ Premix 50 mls @ 100 mls/hr IV ONETIME ONE Stop: 07/10/20 20:45 Last Admin: 07/10/20 20:57 Dose: 100 mls/hr Documented by: Bupivacaine HCl/Epinephrine Bitart (Sensorc Mpf 0.25%-Epi [id number]) Confirm Administered Dose 30 mls @ as directed .ROUTE .STK-MED ONE Stop: 07/10/20 20:48 Iopamidol (Iopamidol 755 Mg/Ml 500 Ml Multipack Bottle) 100 ml IVPUSH ONETIME STA Stop: 07/09/20 15:53 Last Admin: 07/09/20 15:52 Dose: 100 ml Documented by: Ketorolac Tromethamine (Ketorolac 30 Mg/Ml Sdv) 15 mg IVPUSH ONETIME ONE Stop: 07/09/20 13:04 Last Admin: 07/09/20 13:15 Dose: 15 mg Documented by: Ketorolac Tromethamine (Ketorolac 30 Mg/Ml Sdv) Confirm Administered Dose 30 mg .ROUTE .STK-MED ONE Stop: 07/10/20 20:46 Lidocaine (Lidocaine 2% 5 Ml Sdv) Confirm Administered Dose 5 ml .ROUTE .STK-MED ONE Stop: 07/10/20 20:46 Midazolam HCl (Midazolam 1 Mg/Ml 2 Ml Sdv) Confirm Administered Dose 2 mg .ROUTE .STK-MED ONE Stop: 07/10/20 20:44 Morphine Sulfate (Morphine 2 Mg/Ml Syringe) 2 mg IVPUSH Q2H PRN PRN Reason: Pain Last Admin: 07/10/20 01:26 Dose: 2 mg Documented by: Ondansetron HCl (Ondansetron 4 Mg/2 Ml Sdv) 4 mg IVPUSH ONETIME ONE Stop: 07/09/20 12:28 Last Admin: 07/09/20 12:32 Dose: 4 mg Documented by: Ondansetron HCl (Ondansetron 4 Mg/2 Ml Sdv) Confirm Administered Dose 4 mg .ROUTE .STK-MED ONE Stop: 07/09/20 12:28 Last Admin: 07/09/20 12:32 Dose: Not Given Documented by: Ondansetron HCl (Ondansetron 4 Mg/2 Ml Sdv) 4 mg IVPUSH Q8H PRN PRN Reason: Nausea Last Admin: 07/10/20 15:14 Dose: 4 mg Documented by: Ondansetron HCl (Ondansetron 4 Mg/2 Ml Sdv) Confirm Administered Dose 4 mg .ROUTE .STK-MED ONE Stop: 07/10/20 20:46 Propofol (Propofol 200 Mg/20 Ml Sdv) Confirm Administered Dose 200 mg .ROUTE .STK-MED ONE Stop: 07/10/20 20:44 Rocuronium Ora (Rocuronium Ora 50 Mg/5 Ml Syringe) Confirm Administered Dose 50 mg .ROUTE .STK-MED ONE Stop: 07/10/20 20:46 Rocuronium Ora (Rocuronium Ora 50 Mg/5 Ml Syringe) Confirm Administered Dose 50 mg .ROUTE .STK-MED ONE Stop: 07/10/20 22:07 Sugammadex Sodium (Sugammadex Sodium 200 Mg/2 Ml Vial) Confirm Administered Dose 200 mg .ROUTE .STK-MED ONE Stop: 07/10/20 20:46 - Exam Wound/Incisions: Dressing Dry and Intact, No Drainage General: Alert, Oriented Lungs: Clear to Auscultation GI/Abdominal Exam: No Distention (lab wnl) Sepsis Event Note - Evaluation Sepsis Screening Result: No Definite Risk - Focused Exam Vital Signs: Vital Signs Temp Pulse Resp BP Pulse Ox 07/11/20 11:20 97.4 F 86 16 134/74 94 L 07/11/20 07:01 97.0 F 96 16 129/78 96 07/11/20 04:40 68 16 123/76 96 07/11/20 03:40 69 16 113/65 95 07/11/20 02:40 75 16 108/62 95 07/11/20 02:10 73 16 119/67 96 07/11/20 01:40 97.8 F 78 14 130/71 95 07/11/20 01:25 90 16 120/67 96 - Problem List Review Problem List Initiated/Reviewed/Updated: Yes - My Orders Last 24 Hours: Active Orders 24 hr Category Date Time Status Admission Status [Patient Status] [ADT] Routine ADT 07/10/20 23:44 Active Communication Order [RC] PER UNIT ROUTINE Care 07/10/20 23:50 Active Communication Order [RC] ROUTINE Care 07/10/20 23:51 Active Overnight Pulse Oximetry [RC] Click to Edit Care 07/11/20 00:26 Active ASSOCIATE DEAN Record [RC] Q4H Care 07/10/20 23:50 Active Verify Patient Consent Obtain [RC] ASDIRECTED Care 07/10/20 21:05 Active Vital Signs [RC] PER UNIT ROUTINE Care 07/10/20 23:50 Active Lactated Ringers [Ringers, Lactated] 1,000 ml Med 07/10/20 23:45 Active IV ASDIRECTED Morphine Med 07/11/20 01:55 Active 3 mg IVPUSH Q4H PRN Morphine Sulfate in 0.9 % NaCl [Morphine-Ns 50 mg/50 ml Med 07/11/20 09:15 Active ] See Protocol IV ASDIRECTED Naloxone [Narcan] Med 07/10/20 23:47 Active 0.04 mg IVPUSH Q3M PRN Ondansetron [Zofran] Med 07/10/20 23:47 Active 4 mg IVPUSH Q6H PRN Ondansetron [Zofran] Med 07/10/20 23:45 Active 4 mg IVPUSH Q8H PRN diazePAM [Valium] Med 07/11/20 01:51 Active 2 mg IVPUSH Q12H PRN diphenhydrAMINE [Benadryl] Med 07/10/20 23:47 Active 25 mg IVPUSH Q6H PRN diphenhydrAMINE [Benadryl] Med 07/10/20 23:47 Active 25 mg PO Q6H PRN Pulse Oximetry Continuous Monitoring [OM.PC] Routine Oth 07/10/20 23:50 Ordered Medication Orders Acetaminophen (Acetaminophen 325 Mg Tab) 650 mg PO Q6H PRN PRN Reason: Abdominal Pain Benzocaine (Benzocaine 20% Topical [place] Ud) 1 each MUCMEM Q1H PRN PRN Reason: Pain Last Admin: 07/09/20 20:59 Dose: 1 each Documented by: VINCE Benzocaine/Menthol (Benzocaine/Cetylpyridinium/Menthol Lozenge) 1 lozenge MUCMEM Q2HR PRN PRN Reason: sore throat Last Admin: 07/11/20 08:33 Dose: 1 lozenge Documented by: WILLOW Cosigned by: [email or web address] Admin: 07/11/20 06:18 Dose: 1 lozenge Documented by: Admin: 07/11/20 04:13 Dose: 1 lozenge Documented by: Admin: 07/10/20 06:58 Dose: 1 lozenge Documented by: Admin: 07/09/20 21:39 Dose: 1 lozenge Documented by: VINCE Diazepam (Diazepam 10 Mg/2 Ml Syringe) 2 mg IVPUSH Q12H PRN PRN Reason: Spasms Diphenhydramine HCl (Diphenhydramine 50 Mg/Ml Sdv) 25 mg IVPUSH Q6H PRN PRN Reason: Itching Diphenhydramine HCl (Diphenhydramine 25 Mg Cap) 25 mg PO Q6H PRN PRN Reason: Itching Pantoprazole Sodium 40 mg/ (Sodium Chloride) 10 mls @ 300 mls/hr IV DAILY CURRY Last Admin: 07/11/20 08:48 Dose: 300 mls/hr Documented by: Infusion: 07/10/20 09:47 Dose: 300 mls/hr Documented by: Admin: 07/10/20 09:45 Dose: 300 mls/hr Documented by: CIELO Lactated Ringer's (Ringers, Lactated) 1,000 mls @ 150 mls/hr IV ASDIRECTED CURRY Last Admin: 07/11/20 08:49 Dose: 150 mls/hr Documented by: Infusion: 07/11/20 08:49 Dose: 150 mls/hr Documented by: Admin: 07/11/20 02:10 Dose: 150 mls/hr Documented by: FRANC Morphine Sulfate (Morphine 4 Mg/Ml Syringe) 3 mg IVPUSH Q4H PRN PRN Reason: Pain Morphine Sulfate/Sodium Chloride (Morphine Sulfate In 0.9 % Nacl 50 Mg/50 Ml [employer] Bag) 0 mg IV ASDIRECTED CURRY; Protocol Last Admin: 07/11/20 09:55 Dose: 1 mg Documented by: CIELO Naloxone HCl (Naloxone 0.4 Mg/Ml Syringe) 0.04 mg IVPUSH Q3M PRN PRN Reason: Respiratory Depression Ondansetron HCl (Ondansetron 4 Mg/2 Ml Sdv) 4 mg IVPUSH Q8H PRN PRN Reason: Nausea/Vomiting Ondansetron HCl (Ondansetron 4 Mg/2 Ml Sdv) 4 mg IVPUSH Q6H PRN PRN Reason: Nausea/Vomiting Oxycodone/Acetaminophen (Acetaminophen/Oxycodone 325-5 Mg Tab) 1 tab PO Q6H PRN PRN Reason: Pain Sodium Chloride (Sodium Chloride 0.9% 10 Ml Syringe) 10 ml FLUSH ASDIRECTED PRN PRN Reason: Keep Vein Open Last Admin: 07/09/20 12:32 Dose: 10 ml Documented by: SUMEET Sodium Chloride (Sodium Chloride 0.9% 2.5 Ml Syringe) 2.5 ml FLUSH ASDIRECTED PRN PRN Reason: Keep Vein Open Last Admin: 07/09/20 12:32 Dose: 2.5 ml Documented by: SUMEET - Assessment Assessment (Free Text/Narrative):: pod#1 appendectomy/diverticulectomy; doing well, await bowel functions; hi bleeding risks; no chemical anticoagulation; SCD/OOB; lovenox may be in 2 days from now; encourage chewing gums. - Plan Plan (Free Text/Narrative):: pod#1 appendectomy/diverticulectomy; doing well, await bowel functions; hi bleeding risks; no chemical anticoagulation; SCD/OOB; lovenox may be in 2 days from now; encourage chewing gums.
--- NOTE | 2020-07-11 21:10 | PCM.SN.2 ---
- Free Text/Narrative Note: Patient is a 35-year-old male admitted for small bowel obstruction requiring emergent exploratory laparotomy, found to have [address] Moore. Patient was seen and examined at bedside, states pain is well controlled, remained afebrile, with surgical site appearing dry and clean. NG tube remains in place. Resting in bed comfortably on 2 L nasal cannula. Patient appears to be vitally stable, physical examination was unremarkable from a cardio, pulmonary standpoint. Abdomen has appropriate dry clean dressings. Labs within normal limits per CBC and CMP. Assessment and plan: Status post small bowel obstruction x3: Continue with current pain regimen suggested by Dr. Moore who is the primary. We will continue to monitor on the floor Continue with bowel rest, NG decompression and IV fluids Patient is to use SCDs for DVT prophylaxis, no pharmacological DVT prophylaxis is recommended as per Dr. Moore at this time.
[2020-07-12] MEDS: Lactated Ringers 1,000 ML IV SCH (05:40)
[2020-07-12 08:02] LABS: BLOOD UREA NITROGEN,BUN 11 mg/dL (7.0-18.0); CARBON DIOXIDE,CO2 28.2 mmol/L (21.0-32.0); GLUCOSE RANDOM 105 mg/dL (74-106)
[2020-07-12] MEDS: Pantoprazole 40 MG in Sodium Chloride 0.9% 10 ML IV SCH (09:01)
--- NOTE | 2020-07-12 09:04 | PCM.SURGPN ---
- General Info Date of Service: 07/12/20 POD#: 2 Post-Op Diagnosis: sbo Functional Status: Reports: Pain Controlled (pt reported passing flatus) - Review of Systems General: Reports: No Symptoms - Patient Data Vitals - Most Recent: Last Vital Signs Temp 99.3 F 07/12/20 06:50 Pulse 99 07/12/20 06:50 Resp 17 07/12/20 06:50 BP 133/76 07/12/20 06:50 Pulse Ox 93 L 07/12/20 06:50 Weight - Most Recent: 178 lb 12.8 oz I&O - Last 24 Hours: Intake & Output 07/11/20 07/12/20 07/12/20 22:59 06:59 14:59 Intake Total 2135 480 Output Total 950 1700 Balance 1185 -1220 Lab Results Last 24 Hrs: Laboratory Results - last 24 hr 07/12/20 07/12/20 Range/Units 07:31 07:31 WBC 6.37 (4.0-11.0) K/uL RBC 4.72 (4.50-5.90) M/uL Hgb 14.2 (13.0-17.0) g/dL Hct 42.7 (38.0-50.0) % MCV 90.5 (80.0-98.0) fL MCH 30.1 (27.0-32.0) pg MCHC 33.3 (31.0-37.0) g/dL RDW Std Deviation 46.9 (28.0-62.0) fl RDW Coeff of Shivam 14 (11.0-15.0) % Plt Count 251 (150-400) K/uL MPV 10.00 (7.40-12.00) fL Neut % (Auto) 63.8 (48.0-80.0) % Lymph % (Auto) 18.5 (16.0-40.0) % [place] % (Auto) 17.0 H (0.0-15.0) % Eos % (Auto) 0.5 (0.0-7.0) % Baso % (Auto) 0.2 (0.0-1.5) % Neut # (Auto) 4.1 (1.4-5.7) K/uL Lymph # (Auto) 1.2 (0.6-2.4) K/uL [place] # (Auto) 1.1 H (0.0-0.8) K/uL Eos # (Auto) 0.0 (0.0-0.7) K/uL Baso # (Auto) 0.0 (0.0-0.1) K/uL Nucleated RBC % 0.0 /100WBC Nucleated RBCs # 0 K/uL Sodium 131 L (136-148) mmol/L Potassium 3.9 (3.5-5.1) mmol/L Chloride 103 (98-107) mmol/L Carbon Dioxide 28.2 (21.0-32.0) mmol/L BUN 11 (7.0-18.0) mg/dL Creatinine 1.0 (0.8-1.3) mg/dL Est Cr Clr Drug Dosing 95.48 mL/min Estimated GFR (MDRD) > 60.0 ml/min Glucose 105 (74-106) mg/dL Calcium 8.0 L (8.5-10.1) mg/dL Phosphorus 3.2 (2.6-4.7) mg/dL Magnesium 2.0 (1.8-2.4) mg/dL Total Bilirubin 1.4 H (0.2-1.0) mg/dL AST 28 (15-37) IU/L ALT 33 (14-63) IU/L Alkaline Phosphatase 44 L (46-116) U/L Total Protein 6.0 L (6.4-8.2) g/dL Albumin 2.5 L (3.4-5.0) g/dL Globulin 3.5 (2.6-4.0) g/dL Albumin/Globulin Ratio 0.7 L (0.9-1.6) Med Orders - Current: Current Medications Acetaminophen (Acetaminophen 325 Mg Tab) 650 mg PO Q6H PRN PRN Reason: Abdominal Pain Benzocaine (Benzocaine 20% Topical [place] Ud) 1 each MUCMEM Q1H PRN PRN Reason: Pain Last Admin: 07/09/20 20:59 Dose: 1 each Documented by: Benzocaine/Menthol (Benzocaine/Cetylpyridinium/Menthol Lozenge) 1 lozenge MUCMEM Q2HR PRN PRN Reason: sore throat Last Admin: 07/11/20 08:33 Dose: 1 lozenge Documented by: Diazepam (Diazepam 10 Mg/2 Ml Syringe) 2 mg IVPUSH Q12H PRN PRN Reason: Spasms Diphenhydramine HCl (Diphenhydramine 50 Mg/Ml Sdv) 25 mg IVPUSH Q6H PRN PRN Reason: Itching Diphenhydramine HCl (Diphenhydramine 25 Mg Cap) 25 mg PO Q6H PRN PRN Reason: Itching Pantoprazole Sodium 40 mg/ (Sodium Chloride) 10 mls @ 300 mls/hr IV DAILY CURRY Last Admin: 07/11/20 08:48 Dose: 300 mls/hr Documented by: Lactated Ringer's (Ringers, Lactated) 1,000 mls @ 150 mls/hr IV ASDIRECTED CURRY Last Admin: 07/12/20 05:40 Dose: 150 mls/hr Documented by: Morphine Sulfate/Sodium Chloride (Morphine Sulfate In 0.9 % Nacl 50 Mg/50 Ml Cloth Spreader Screen Printing Bag) 0 mg IV ASDIRECTED CURRY; Protocol Last Admin: 07/11/20 09:55 Dose: 1 mg Documented by: Naloxone HCl (Naloxone 0.4 Mg/Ml Syringe) 0.04 mg IVPUSH Q3M PRN PRN Reason: Respiratory Depression Ondansetron HCl (Ondansetron 4 Mg/2 Ml Sdv) 4 mg IVPUSH Q8H PRN PRN Reason: Nausea/Vomiting Ondansetron HCl (Ondansetron 4 Mg/2 Ml Sdv) 4 mg IVPUSH Q6H PRN PRN Reason: Nausea/Vomiting Oxycodone/Acetaminophen (Acetaminophen/Oxycodone 325-5 Mg Tab) 1 tab PO Q6H PRN PRN Reason: Pain Sodium Chloride (Sodium Chloride 0.9% 10 Ml Syringe) 10 ml FLUSH ASDIRECTED PRN PRN Reason: Keep Vein Open Last Admin: 07/09/20 12:32 Dose: 10 ml Documented by: Sodium Chloride (Sodium Chloride 0.9% 2.5 Ml Syringe) 2.5 ml FLUSH ASDIRECTED PRN PRN Reason: Keep Vein Open Last Admin: 07/09/20 12:32 Dose: 2.5 ml Documented by: Discontinued Medications Benzocaine (Benzocaine 20% Topical [place] Ud) 1 each MUCMEM ONETIME ONE Stop: 07/09/20 17:10 Last Admin: 07/09/20 17:22 Dose: 1 each Documented by: Bisacodyl (Bisacodyl 10 Mg Supp) 10 mg RECTAL ONETIME ONE Stop: 07/10/20 10:08 Last Admin: 07/10/20 10:37 Dose: 10 mg Documented by: Fentanyl (Fentanyl 100 Mcg/2 Ml Sdv) 50 mcg IVPUSH Q5M PRN PRN Reason: Pain Fentanyl (Fentanyl 250 Mcg/5 Ml Sdv) Confirm Administered Dose 250 mcg .ROUTE .STK-MED ONE Stop: 07/10/20 20:45 Glycopyrrolate (Glycopyrrolate 0.2 Mg/Ml Sdv) Confirm Administered Dose 0.2 mg .ROUTE .STK-MED ONE Stop: 07/10/20 20:46 Hydromorphone HCl (Hydromorphone 2 Mg/Ml Syringe) Confirm Administered Dose 2 mg .ROUTE .STK-MED ONE Stop: 07/10/20 21:57 Sodium Chloride (Normal Saline) 1,000 mls @ 1,000 mls/hr IV .Bolus ONE Stop: 07/09/20 13:19 Last Admin: 07/09/20 12:32 Dose: 1,000 mls/hr Documented by: Sodium Chloride (Normal Saline) 1,000 mls @ 999 mls/hr IV .BOLUS ONE Stop: 07/09/20 17:04 Last Admin: 07/09/20 16:11 Dose: 999 mls/hr Documented by: Lactated Ringer's (Ringers, Lactated) 1,000 mls @ 150 mls/hr IV ASDIRECTED [facility] Last Admin: 07/10/20 14:48 Dose: 150 mls/hr Documented by: Cefoxitin Sodium 2 gm/ Premix 50 mls @ 100 mls/hr IV ONETIME ONE Stop: 07/10/20 20:45 Last Admin: 07/10/20 20:57 Dose: 100 mls/hr Documented by: Bupivacaine HCl/Epinephrine Bitart (Sensorc Mpf 0.25%-Epi 1:[id number]) Confirm Administered Dose 30 mls @ as directed .ROUTE .STK-MED ONE Stop: 07/10/20 20:48 Iopamidol (Iopamidol 755 Mg/Ml 500 Ml Multipack Bottle) 100 ml IVPUSH ONETIME STA Stop: 07/09/20 15:53 Last Admin: 07/09/20 15:52 Dose: 100 ml Documented by: Ketorolac Tromethamine (Ketorolac 30 Mg/Ml Sdv) 15 mg IVPUSH ONETIME ONE Stop: 07/09/20 13:04 Last Admin: 07/09/20 13:15 Dose: 15 mg Documented by: Ketorolac Tromethamine (Ketorolac 30 Mg/Ml Sdv) Confirm Administered Dose 30 mg .ROUTE .STK-MED ONE Stop: 07/10/20 20:46 Lidocaine (Lidocaine 2% 5 Ml Sdv) Confirm Administered Dose 5 ml .ROUTE .STK-MED ONE Stop: 07/10/20 20:46 Midazolam HCl (Midazolam 1 Mg/Ml 2 Ml Sdv) Confirm Administered Dose 2 mg .ROUTE .STK-MED ONE Stop: 07/10/20 20:44 Morphine Sulfate (Morphine 2 Mg/Ml Syringe) 2 mg IVPUSH Q2H PRN PRN Reason: Pain Last Admin: 07/10/20 01:26 Dose: 2 mg Documented by: Morphine Sulfate (Morphine 4 Mg/Ml Syringe) 3 mg IVPUSH Q4H PRN PRN Reason: Pain Ondansetron HCl (Ondansetron 4 Mg/2 Ml Sdv) 4 mg IVPUSH ONETIME ONE Stop: 07/09/20 12:28 Last Admin: 07/09/20 12:32 Dose: 4 mg Documented by: Ondansetron HCl (Ondansetron 4 Mg/2 Ml Sdv) Confirm Administered Dose 4 mg .ROUTE .STK-MED ONE Stop: 07/09/20 12:28 Last Admin: 07/09/20 12:32 Dose: Not Given Documented by: Ondansetron HCl (Ondansetron 4 Mg/2 Ml Sdv) 4 mg IVPUSH Q8H PRN PRN Reason: Nausea Last Admin: 07/10/20 15:14 Dose: 4 mg Documented by: Ondansetron HCl (Ondansetron 4 Mg/2 Ml Sdv) Confirm Administered Dose 4 mg .ROUTE .STK-MED ONE Stop: 07/10/20 20:46 Propofol (Propofol 200 Mg/20 Ml Sdv) Confirm Administered Dose 200 mg .ROUTE .STK-MED ONE Stop: 07/10/20 20:44 Rocuronium [place] (Rocuronium [place] 50 Mg/5 Ml Syringe) Confirm Administered Dose 50 mg .ROUTE .STK-MED ONE Stop: 07/10/20 20:46 Rocuronium [place] (Rocuronium [place] 50 Mg/5 Ml Syringe) Confirm Administered Dose 50 mg .ROUTE .STK-MED ONE Stop: 07/10/20 22:07 Sugammadex Sodium (Sugammadex Sodium 200 Mg/2 Ml Vial) Confirm Administered Dose 200 mg .ROUTE .STK-MED ONE Stop: 07/10/20 20:46 - Exam General: Alert, Oriented Lungs: Clear to Auscultation GI/Abdominal Exam: No Distention (diminished bowel sound) Sepsis Event Note - Evaluation Sepsis Screening Result: No Definite Risk - Focused Exam Vital Signs: Vital Signs Temp Pulse Resp BP Pulse Ox 07/12/20 06:50 99.3 F 99 17 133/76 93 L 07/12/20 04:10 98.4 F 85 16 126/68 95 07/12/20 00:20 98.5 F 88 16 143/87 H 95 - Problem List Review Problem List Initiated/Reviewed/Updated: Yes - My Orders Last 24 Hours: Active Orders 24 hr Category Date Time Status Morphine Sulfate in 0.9 % NaCl [Morphine-Ns 50 mg/50 ml Med 07/11/20 09:15 Active ] See Protocol IV ASDIRECTED Medication Orders Acetaminophen (Acetaminophen 325 Mg Tab) 650 mg PO Q6H PRN PRN Reason: Abdominal Pain Benzocaine (Benzocaine 20% Topical [place] Ud) 1 each MUCMEM Q1H PRN PRN Reason: Pain Last Admin: 07/09/20 20:59 Dose: 1 each Documented by: VINCE Benzocaine/Menthol (Benzocaine/Cetylpyridinium/Menthol Lozenge) 1 lozenge MUCMEM Q2HR PRN PRN Reason: sore throat Last Admin: 07/11/20 08:33 Dose: 1 lozenge Documented by: WILLOW Cosigned by: NIDA Admin: 07/11/20 06:18 Dose: 1 lozenge Documented by: Admin: 07/11/20 04:13 Dose: 1 lozenge Documented by: Admin: 07/10/20 06:58 Dose: 1 lozenge Documented by: Admin: 07/09/20 21:39 Dose: 1 lozenge Documented by: VINCE Diazepam (Diazepam 10 Mg/2 Ml Syringe) 2 mg IVPUSH Q12H PRN PRN Reason: Spasms Diphenhydramine HCl (Diphenhydramine 50 Mg/Ml Sdv) 25 mg IVPUSH Q6H PRN PRN Reason: Itching Diphenhydramine HCl (Diphenhydramine 25 Mg Cap) 25 mg PO Q6H PRN PRN Reason: Itching Pantoprazole Sodium 40 mg/ (Sodium Chloride) 10 mls @ 300 mls/hr IV DAILY CURRY Last Admin: 07/11/20 08:48 Dose: 300 mls/hr Documented by: Infusion: 07/10/20 09:47 Dose: 300 mls/hr Documented by: Admin: 07/10/20 09:45 Dose: 300 mls/hr Documented by: CIELO Lactated Ringer's (Ringers, Lactated) 1,000 mls @ 150 mls/hr IV ASDIRECTED [facility] Last Admin: 07/12/20 05:40 Dose: 150 mls/hr Documented by: Infusion: 07/12/20 05:14 Dose: 150 mls/hr Documented by: Admin: 07/11/20 22:33 Dose: 150 mls/hr Documented by: Infusion: 07/11/20 22:27 Dose: 150 mls/hr Documented by: Admin: 07/11/20 15:46 Dose: 150 mls/hr Documented by: Infusion: 07/11/20 15:30 Dose: 150 mls/hr Documented by: Admin: 07/11/20 08:49 Dose: 150 mls/hr Documented by: Infusion: 07/11/20 08:49 Dose: 150 mls/hr Documented by: Admin: 07/11/20 02:10 Dose: 150 mls/hr Documented by: FRANC Morphine Sulfate/Sodium Chloride (Morphine Sulfate In 0.9 % Nacl 50 Mg/50 Ml Cloth Spreader Screen Printing Bag) 0 mg IV ASDIRECTED CURRY; Protocol Last Admin: 07/11/20 09:55 Dose: 1 mg Documented by: CIELO Naloxone HCl (Naloxone 0.4 Mg/Ml Syringe) 0.04 mg IVPUSH Q3M PRN PRN Reason: Respiratory Depression Ondansetron HCl (Ondansetron 4 Mg/2 Ml Sdv) 4 mg IVPUSH Q8H PRN PRN Reason: Nausea/Vomiting Ondansetron HCl (Ondansetron 4 Mg/2 Ml Sdv) 4 mg IVPUSH Q6H PRN PRN Reason: Nausea/Vomiting Oxycodone/Acetaminophen (Acetaminophen/Oxycodone 325-5 Mg Tab) 1 tab PO Q6H PRN PRN Reason: Pain Sodium Chloride (Sodium Chloride 0.9% 10 Ml Syringe) 10 ml FLUSH ASDIRECTED PRN PRN Reason: Keep Vein Open Last Admin: 07/09/20 12:32 Dose: 10 ml Documented by: SUMETE Sodium Chloride (Sodium Chloride 0.9% 2.5 Ml Syringe) 2.5 ml FLUSH ASDIRECTED PRN PRN Reason: Keep Vein Open Last Admin: 07/09/20 12:32 Dose: 2.5 ml Documented by: SUMEET - Assessment Assessment (Free Text/Narrative):: pod#2 for SBO from diverticulum; await bowel function; dc ngt; started on clear - Plan Plan (Free Text/Narrative):: pod#2 for SBO from diverticulum; await bowel function; dc ngt; started on clear
[2020-07-12] MEDS ORDERED: Lactated Ringers 1,000 ML IV SCH (09:30)
--- NOTE | 2020-07-12 13:16 | PCM.CONSN ---
- General Info Date of Service: 07/12/20 - Review of Systems Systems Review Comment:: NG tube out, pain is controlled - Patient Data Vitals - Most Recent: Last Vital Signs Temp 36.9 C 07/12/20 12:00 Pulse 92 07/12/20 12:00 Resp 18 07/12/20 12:00 BP 123/73 07/12/20 12:00 Pulse Ox 93 L 07/12/20 12:00 Weight - Most Recent: 81.102 kg I&O - Last 24 Hours: Intake & Output 07/11/20 07/12/20 07/12/20 22:59 06:59 14:59 Intake Total 2135 480 360 Output Total 950 1700 Balance 1185 -1220 360 Lab Results Last 24 Hours: Laboratory Results - last 24 hr 07/12/20 07/12/20 Range/Units 07:31 07:31 WBC 6.37 (4.0-11.0) K/uL RBC 4.72 (4.50-5.90) M/uL Hgb 14.2 (13.0-17.0) g/dL Hct 42.7 (38.0-50.0) % MCV 90.5 (80.0-98.0) fL MCH 30.1 (27.0-32.0) pg MCHC 33.3 (31.0-37.0) g/dL RDW Std Deviation 46.9 (28.0-62.0) fl RDW Coeff of Shivam 14 (11.0-15.0) % Plt Count 251 (150-400) K/uL MPV 10.00 (7.40-12.00) fL Neut % (Auto) 63.8 (48.0-80.0) % Lymph % (Auto) 18.5 (16.0-40.0) % [place] % (Auto) 17.0 H (0.0-15.0) % Eos % (Auto) 0.5 (0.0-7.0) % Baso % (Auto) 0.2 (0.0-1.5) % Neut # (Auto) 4.1 (1.4-5.7) K/uL Lymph # (Auto) 1.2 (0.6-2.4) K/uL [place] # (Auto) 1.1 H (0.0-0.8) K/uL Eos # (Auto) 0.0 (0.0-0.7) K/uL Baso # (Auto) 0.0 (0.0-0.1) K/uL Nucleated RBC % 0.0 /100WBC Nucleated RBCs # 0 K/uL Sodium 131 L (136-148) mmol/L Potassium 3.9 (3.5-5.1) mmol/L Chloride 103 (98-107) mmol/L Carbon Dioxide 28.2 (21.0-32.0) mmol/L BUN 11 (7.0-18.0) mg/dL Creatinine 1.0 (0.8-1.3) mg/dL Est Cr Clr Drug Dosing 95.48 mL/min Estimated GFR (MDRD) > 60.0 ml/min Glucose 105 (74-106) mg/dL Calcium 8.0 L (8.5-10.1) mg/dL Phosphorus 3.2 (2.6-4.7) mg/dL Magnesium 2.0 (1.8-2.4) mg/dL Total Bilirubin 1.4 H (0.2-1.0) mg/dL AST 28 (15-37) IU/L ALT 33 (14-63) IU/L Alkaline Phosphatase 44 L (46-116) U/L Total Protein 6.0 L (6.4-8.2) g/dL Albumin 2.5 L (3.4-5.0) g/dL Globulin 3.5 (2.6-4.0) g/dL Albumin/Globulin Ratio 0.7 L (0.9-1.6) Med Orders - Current: Current Medications Acetaminophen (Acetaminophen 325 Mg Tab) 650 mg PO Q6H PRN PRN Reason: Abdominal Pain Benzocaine (Benzocaine 20% Topical [place] Ud) 1 each MUCMEM Q1H PRN PRN Reason: Pain Last Admin: 07/09/20 20:59 Dose: 1 each Documented by: Benzocaine/Menthol (Benzocaine/Cetylpyridinium/Menthol Lozenge) 1 lozenge MUCMEM Q2HR PRN PRN Reason: sore throat Last Admin: 07/11/20 08:33 Dose: 1 lozenge Documented by: Diazepam (Diazepam 10 Mg/2 Ml Syringe) 2 mg IVPUSH Q12H PRN PRN Reason: Spasms Diphenhydramine HCl (Diphenhydramine 50 Mg/Ml Sdv) 25 mg IVPUSH Q6H PRN PRN Reason: Itching Diphenhydramine HCl (Diphenhydramine 25 Mg Cap) 25 mg PO Q6H PRN PRN Reason: Itching Pantoprazole Sodium 40 mg/ (Sodium Chloride) 10 mls @ 300 mls/hr IV DAILY CURRY Last Admin: 07/12/20 09:01 Dose: 300 mls/hr Documented by: Lactated Ringer's (Ringers, Lactated) 1,000 mls @ 150 mls/hr IV ASDIRECTED CURRY Last Infusion: 07/12/20 09:30 Dose: 75 mls/hr Documented by: Morphine Sulfate/Sodium Chloride (Morphine Sulfate In 0.9 % Nacl 50 Mg/50 Ml [employer] Bag) 0 mg IV ASDIRECTED CURRY; Protocol Last Admin: 07/11/20 09:55 Dose: 1 mg Documented by: Naloxone HCl (Naloxone 0.4 Mg/Ml Syringe) 0.04 mg IVPUSH Q3M PRN PRN Reason: Respiratory Depression Ondansetron HCl (Ondansetron 4 Mg/2 Ml Sdv) 4 mg IVPUSH Q8H PRN PRN Reason: Nausea/Vomiting Ondansetron HCl (Ondansetron 4 Mg/2 Ml Sdv) 4 mg IVPUSH Q6H PRN PRN Reason: Nausea/Vomiting Oxycodone/Acetaminophen (Acetaminophen/Oxycodone 325-5 Mg Tab) 1 tab PO Q6H PRN PRN Reason: Pain Sodium Chloride (Sodium Chloride 0.9% 10 Ml Syringe) 10 ml FLUSH ASDIRECTED PRN PRN Reason: Keep Vein Open Last Admin: 07/09/20 12:32 Dose: 10 ml Documented by: Sodium Chloride (Sodium Chloride 0.9% 2.5 Ml Syringe) 2.5 ml FLUSH ASDIRECTED PRN PRN Reason: Keep Vein Open Last Admin: 07/09/20 12:32 Dose: 2.5 ml Documented by: Discontinued Medications Benzocaine (Benzocaine 20% Topical [place] Ud) 1 each MUCMEM ONETIME ONE Stop: 07/09/20 17:10 Last Admin: 07/09/20 17:22 Dose: 1 each Documented by: Bisacodyl (Bisacodyl 10 Mg Supp) 10 mg RECTAL ONETIME ONE Stop: 07/10/20 10:08 Last Admin: 07/10/20 10:37 Dose: 10 mg Documented by: Fentanyl (Fentanyl 100 Mcg/2 Ml Sdv) 50 mcg IVPUSH Q5M PRN PRN Reason: Pain Fentanyl (Fentanyl 250 Mcg/5 Ml Sdv) Confirm Administered Dose 250 mcg .ROUTE .STK-MED ONE Stop: 07/10/20 20:45 Glycopyrrolate (Glycopyrrolate 0.2 Mg/Ml Sdv) Confirm Administered Dose 0.2 mg .ROUTE .STK-MED ONE Stop: 07/10/20 20:46 Hydromorphone HCl (Hydromorphone 2 Mg/Ml Syringe) Confirm Administered Dose 2 mg .ROUTE .STK-MED ONE Stop: 07/10/20 21:57 Sodium Chloride (Normal Saline) 1,000 mls @ 1,000 mls/hr IV .Bolus ONE Stop: 07/09/20 13:19 Last Admin: 07/09/20 12:32 Dose: 1,000 mls/hr Documented by: Sodium Chloride (Normal Saline) 1,000 mls @ 999 mls/hr IV .BOLUS ONE Stop: 07/09/20 17:04 Last Admin: 07/09/20 16:11 Dose: 999 mls/hr Documented by: Lactated Ringer's (Ringers, Lactated) 1,000 mls @ 150 mls/hr IV ASDIRECTED CURRY Last Admin: 07/10/20 14:48 Dose: 150 mls/hr Documented by: Cefoxitin Sodium 2 gm/ Premix 50 mls @ 100 mls/hr IV ONETIME ONE Stop: 07/10/20 20:45 Last Admin: 07/10/20 20:57 Dose: 100 mls/hr Documented by: Bupivacaine HCl/Epinephrine Bitart (Sensorc Mpf 0.25%-Epi 1:[id number]) Confirm Administered Dose 30 mls @ as directed .ROUTE .STK-MED ONE Stop: 07/10/20 20:48 Iopamidol (Iopamidol 755 Mg/Ml 500 Ml Multipack Bottle) 100 ml IVPUSH ONETIME STA Stop: 07/09/20 15:53 Last Admin: 07/09/20 15:52 Dose: 100 ml Documented by: Ketorolac Tromethamine (Ketorolac 30 Mg/Ml Sdv) 15 mg IVPUSH ONETIME ONE Stop: 07/09/20 13:04 Last Admin: 07/09/20 13:15 Dose: 15 mg Documented by: Ketorolac Tromethamine (Ketorolac 30 Mg/Ml Sdv) Confirm Administered Dose 30 mg .ROUTE .STK-MED ONE Stop: 07/10/20 20:46 Lidocaine (Lidocaine 2% 5 Ml Sdv) Confirm Administered Dose 5 ml .ROUTE .STK-MED ONE Stop: 07/10/20 20:46 Midazolam HCl (Midazolam 1 Mg/Ml 2 Ml Sdv) Confirm Administered Dose 2 mg .ROUTE .STK-MED ONE Stop: 07/10/20 20:44 Morphine Sulfate (Morphine 2 Mg/Ml Syringe) 2 mg IVPUSH Q2H PRN PRN Reason: Pain Last Admin: 07/10/20 01:26 Dose: 2 mg Documented by: Morphine Sulfate (Morphine 4 Mg/Ml Syringe) 3 mg IVPUSH Q4H PRN PRN Reason: Pain Ondansetron HCl (Ondansetron 4 Mg/2 Ml Sdv) 4 mg IVPUSH ONETIME ONE Stop: 07/09/20 12:28 Last Admin: 07/09/20 12:32 Dose: 4 mg Documented by: Ondansetron HCl (Ondansetron 4 Mg/2 Ml Sdv) Confirm Administered Dose 4 mg .ROUTE .STK-MED ONE Stop: 07/09/20 12:28 Last Admin: 07/09/20 12:32 Dose: Not Given Documented by: Ondansetron HCl (Ondansetron 4 Mg/2 Ml Sdv) 4 mg IVPUSH Q8H PRN PRN Reason: Nausea Last Admin: 07/10/20 15:14 Dose: 4 mg Documented by: Ondansetron HCl (Ondansetron 4 Mg/2 Ml Sdv) Confirm Administered Dose 4 mg .ROUTE .STK-MED ONE Stop: 07/10/20 20:46 Propofol (Propofol 200 Mg/20 Ml Sdv) Confirm Administered Dose 200 mg .ROUTE .STK-MED ONE Stop: 07/10/20 20:44 Rocuronium [place] (Rocuronium [place] 50 Mg/5 Ml Syringe) Confirm Administered Dose 50 mg .ROUTE .STK-MED ONE Stop: 07/10/20 20:46 Rocuronium [place] (Rocuronium [place] 50 Mg/5 Ml Syringe) Confirm Administered Dose 50 mg .ROUTE .STK-MED ONE Stop: 07/10/20 22:07 Sugammadex Sodium (Sugammadex Sodium 200 Mg/2 Ml Vial) Confirm Administered Dose 200 mg .ROUTE .STK-MED ONE Stop: 07/10/20 20:46 - Exam Urinary Catheter Total Time: 0Days 14Hours General: Alert, Oriented Neck: Supple Lungs: Clear to Auscultation, Normal Respiratory Effort GI/Abdominal Exam: Soft, No Distention Extremities: Non-Tender, No Pedal Edema Skin: Warm, Dry, Intact Sepsis Event Note - Evaluation Sepsis Screening Result: No Definite Risk - Focused Exam Vital Signs: Vital Signs Temp Pulse Resp BP Pulse Ox 07/12/20 12:00 36.9 C 92 18 123/73 93 L 07/12/20 06:50 37.4 C 99 17 133/76 93 L 07/12/20 04:10 36.9 C 85 16 126/68 95 Consult PN Assessment/Plan Problem List Initiated/Reviewed/Updated: Yes Plan: 35 yo male POD#2 from SBO from diverticulum, continue to encourage incentive spirometry and DVT ppx per surgery service.
[2020-07-12 14:34] LABS: CHLORIDE,CL 103 mmol/L (98-107); POTASSIUM,K 4.2 mmol/L (3.5-5.1); SODIUM,NA 141 mmol/L (136-148)
[2020-07-12] MEDS ORDERED: Bisacodyl 10 MG Supp RECTAL ONE (19:36)
[2020-07-13] MEDS: Benzocaine 20% Topical Spray UD MUCMEM PRN (02:29)
[2020-07-13] MEDS: Lactated Ringers 1,000 ML IV SCH ×3 (02:30→23:16)
--- NOTE | 2020-07-13 04:14 | CR ---
For Patients: As a result of the Century Cures Act, medical imaging exams and procedure reports are released immediately into your electronic medical record. You may view this report before your referring provider. If you have questions, please contact your health care provider. HISTORY: Evaluate NG or orogastric tube placement. COMPARISON: CT of the abdomen and pelvis from 07/10/2020. FINDINGS: A portable erect AP view of the chest was obtained at 0241 hours. During the interval, the nasogastric or orogastric tube has been advanced and has its tip in satisfactory position in the body of the moderately distended stomach. There is no coiling of the distal portion of the tube. There continues to be moderate dilatation of the visualized superior small-bowel consistent with continued partial small bowel obstruction. There is mild linear atelectasis in the medial right lower lung, new compared to the previous CT. The small right pleural effusion and consolidation of the posterior right lung base seen on CT cannot be identified on today`s plain film which is much less sensitive for these findings. The rest of the chest remains clear. The heart remains normal in size. The mediastinum is normal in appearance. The osseous structures are normal in appearance for the patient`s age. IMPRESSION: Nasogastric tube advanced, now with tip in satisfactory position in the midbody of the stomach, with no sign of coiling of the tip of the tube. New mild linear atelectasis in the medial right lower lung. Dictated by Yordy Blandon MD @ 07/13/2020 4:11:[address] Yordy Blandon @ Jul 13 2020 4:11AM
[2020-07-13] MEDS: Benzocaine/Cetylpyridinium/Menthol Lozenge MUCMEM PRN ×8 (06:40→20:43)
[2020-07-13] MEDS: Pantoprazole 40 MG in Sodium Chloride 0.9% 10 ML IV SCH (08:57)
--- NOTE | 2020-07-13 11:01 | PCM.SURGPN ---
- General Info Date of Service: 07/13/20 POD#: 3 Functional Status: Reports: Pain Controlled (overnight emisis, ngt reinserted, output 1800;) - Review of Systems Gastrointestinal: Reports: No Symptoms - Patient Data Vitals - Most Recent: Last Vital Signs Temp 98.2 F 07/13/20 08:00 Pulse 92 07/13/20 08:00 Resp 16 07/13/20 08:38 BP 134/83 07/13/20 08:00 Pulse Ox 94 L 07/13/20 08:38 Weight - Most Recent: 178 lb 12.8 oz I&O - Last 24 Hours: Intake & Output 07/12/20 07/13/20 07/13/20 22:59 06:59 14:59 Intake Total 1759 867 Output Total 1000 2000 Balance 759 -1133 Lab Results Last 24 Hrs: Laboratory Results - last 24 hr 07/12/20 Range/Units 07:31 Sodium 141 (136-148) mmol/L Potassium 4.2 (3.5-5.1) mmol/L Chloride 103 (98-107) mmol/L Med Orders - Current: Current Medications Acetaminophen (Acetaminophen 325 Mg Tab) 650 mg PO Q6H PRN PRN Reason: Abdominal Pain Benzocaine (Benzocaine 20% Topical [place]) 1 each MUCMEM Q1H PRN PRN Reason: Pain Last Admin: 07/13/20 02:29 Dose: 1 each Documented by: Benzocaine/Menthol (Benzocaine/Cetylpyridinium/Menthol Lozenge) 1 lozenge MUCMEM Q2HR PRN PRN Reason: sore throat Last Admin: 07/13/20 10:53 Dose: 1 lozenge Documented by: Diazepam (Diazepam 10 Mg/2 Ml Syringe) 2 mg IVPUSH Q12H PRN PRN Reason: Spasms Diphenhydramine HCl (Diphenhydramine 50 Mg/Ml Sdv) 25 mg IVPUSH Q6H PRN PRN Reason: Itching Diphenhydramine HCl (Diphenhydramine 25 Mg Cap) 25 mg PO Q6H PRN PRN Reason: Itching Pantoprazole Sodium 40 mg/ (Sodium Chloride) 10 mls @ 300 mls/hr IV DAILY [facility] Last Admin: 07/13/20 08:57 Dose: 300 mls/hr Documented by: Lactated Ringer's (Ringers, Lactated) 1,000 mls @ 75 mls/hr IV ASDIRECTED [facility] Last Admin: 07/12/20 15:15 Dose: 75 mls/hr Documented by: Lactated Ringer's (Ringers, Lactated) 1,000 mls @ 100 mls/hr IV ASDIRECTED [facility] Last Admin: 07/13/20 02:30 Dose: 100 mls/hr Documented by: Naloxone HCl (Naloxone 0.4 Mg/Ml Syringe) 0.04 mg IVPUSH Q3M PRN PRN Reason: Respiratory Depression Ondansetron HCl (Ondansetron 4 Mg/2 Ml Sdv) 4 mg IVPUSH Q8H PRN PRN Reason: Nausea/Vomiting Last Admin: 07/12/20 21:56 Dose: 4 mg Documented by: Ondansetron HCl (Ondansetron 4 Mg/2 Ml Sdv) 4 mg IVPUSH Q6H PRN PRN Reason: Nausea/Vomiting Oxycodone/Acetaminophen (Acetaminophen/Oxycodone 325-5 Mg Tab) 1 tab PO Q6H PRN PRN Reason: Pain Sodium Chloride (Sodium Chloride 0.9% 10 Ml Syringe) 10 ml FLUSH ASDIRECTED PRN PRN Reason: Keep Vein Open Last Admin: 07/09/20 12:32 Dose: 10 ml Documented by: Sodium Chloride (Sodium Chloride 0.9% 2.5 Ml Syringe) 2.5 ml FLUSH ASDIRECTED PRN PRN Reason: Keep Vein Open Last Admin: 07/09/20 12:32 Dose: 2.5 ml Documented by: Discontinued Medications Benzocaine (Benzocaine 20% Topical [place]) 1 each MUCMEM ONETIME ONE Stop: 07/09/20 17:10 Last Admin: 07/09/20 17:22 Dose: 1 each Documented by: Bisacodyl (Bisacodyl 10 Mg Supp) 10 mg RECTAL ONETIME ONE Stop: 07/10/20 10:08 Last Admin: 07/10/20 10:37 Dose: 10 mg Documented by: Bisacodyl (Bisacodyl 10 Mg Supp) 10 mg RECTAL ONETIME ONE Stop: 07/12/20 19:37 Last Admin: 07/12/20 20:18 Dose: 10 mg Documented by: Fentanyl (Fentanyl 100 Mcg/2 Ml Sdv) 50 mcg IVPUSH Q5M PRN PRN Reason: Pain Fentanyl (Fentanyl 250 Mcg/5 Ml Sdv) Confirm Administered Dose 250 mcg .ROUTE .STK-MED ONE Stop: 07/10/20 20:45 Glycopyrrolate (Glycopyrrolate 0.2 Mg/Ml Sdv) Confirm Administered Dose 0.2 mg .ROUTE .STK-MED ONE Stop: 07/10/20 20:46 Hydromorphone HCl (Hydromorphone 2 Mg/Ml Syringe) Confirm Administered Dose 2 mg .ROUTE .STK-MED ONE Stop: 07/10/20 21:57 Sodium Chloride (Normal Saline) 1,000 mls @ 1,000 mls/hr IV .Bolus ONE Stop: 07/09/20 13:19 Last Admin: 07/09/20 12:32 Dose: 1,000 mls/hr Documented by: Sodium Chloride (Normal Saline) 1,000 mls @ 999 mls/hr IV .BOLUS ONE Stop: 07/09/20 17:04 Last Admin: 07/09/20 16:11 Dose: 999 mls/hr Documented by: Lactated Ringer's (Ringers, Lactated) 1,000 mls @ 150 mls/hr IV ASDIRECTED [facility] Last Admin: 07/10/20 14:48 Dose: 150 mls/hr Documented by: Cefoxitin Sodium 2 gm/ Premix 50 mls @ 100 mls/hr IV ONETIME ONE Stop: 07/10/20 20:45 Last Admin: 07/10/20 20:57 Dose: 100 mls/hr Documented by: Bupivacaine HCl/Epinephrine Bitart (Sensorc Mpf 0.25%-Epi [id number]) Confirm Administered Dose 30 mls @ as directed .ROUTE .STK-MED ONE Stop: 07/10/20 20:48 Lactated Ringer's (Ringers, Lactated) 1,000 mls @ 150 mls/hr IV ASDIRECTED [facility] Last Infusion: 07/12/20 09:30 Dose: 75 mls/hr Documented by: Iopamidol (Iopamidol 755 Mg/Ml 500 Ml Multipack Bottle) 100 ml IVPUSH ONETIME STA Stop: 07/09/20 15:53 Last Admin: 07/09/20 15:52 Dose: 100 ml Documented by: Ketorolac Tromethamine (Ketorolac 30 Mg/Ml Sdv) 15 mg IVPUSH ONETIME ONE Stop: 07/09/20 13:04 Last Admin: 07/09/20 13:15 Dose: 15 mg Documented by: Ketorolac Tromethamine (Ketorolac 30 Mg/Ml Sdv) Confirm Administered Dose 30 mg .ROUTE .STK-MED ONE Stop: 07/10/20 20:46 Lidocaine (Lidocaine 2% 5 Ml Sdv) Confirm Administered Dose 5 ml .ROUTE .STK-MED ONE Stop: 07/10/20 20:46 Midazolam HCl (Midazolam 1 Mg/Ml 2 Ml Sdv) Confirm Administered Dose 2 mg .ROUTE .STK-MED ONE Stop: 07/10/20 20:44 Morphine Sulfate (Morphine 2 Mg/Ml Syringe) 2 mg IVPUSH Q2H PRN PRN Reason: Pain Last Admin: 07/10/20 01:26 Dose: 2 mg Documented by: Morphine Sulfate (Morphine 4 Mg/Ml Syringe) 3 mg IVPUSH Q4H PRN PRN Reason: Pain Morphine Sulfate/Sodium Chloride (Morphine Sulfate In 0.9 % Nacl 50 Mg/50 Ml Floor Cove[employer] Apprentice Bag) 0 mg IV ASDIRECTED [facility]; Protocol Last Admin: 07/11/20 09:55 Dose: 1 mg Documented by: Ondansetron HCl (Ondansetron 4 Mg/2 Ml Sdv) 4 mg IVPUSH ONETIME ONE Stop: 07/09/20 12:28 Last Admin: 07/09/20 12:32 Dose: 4 mg Documented by: Ondansetron HCl (Ondansetron 4 Mg/2 Ml Sdv) Confirm Administered Dose 4 mg .ROUTE .STK-MED ONE Stop: 07/09/20 12:28 Last Admin: 07/09/20 12:32 Dose: Not Given Documented by: Ondansetron HCl (Ondansetron 4 Mg/2 Ml Sdv) 4 mg IVPUSH Q8H PRN PRN Reason: Nausea Last Admin: 07/10/20 15:14 Dose: 4 mg Documented by: Ondansetron HCl (Ondansetron 4 Mg/2 Ml Sdv) Confirm Administered Dose 4 mg .ROUTE .STK-MED ONE Stop: 07/10/20 20:46 Propofol (Propofol 200 Mg/20 Ml Sdv) Confirm Administered Dose 200 mg .ROUTE .STK-MED ONE Stop: 07/10/20 20:44 Rocuronium [place] (Rocuronium [place] 50 Mg/5 Ml Syringe) Confirm Administered Dose 50 mg .ROUTE .STK-MED ONE Stop: 07/10/20 20:46 Rocuronium [place] (Rocuronium [place] 50 Mg/5 Ml Syringe) Confirm Administered Dose 50 mg .ROUTE .STK-MED ONE Stop: 07/10/20 22:07 Sugammadex Sodium (Sugammadex Sodium 200 Mg/2 Ml Vial) Confirm Administered Dose 200 mg .ROUTE .STK-MED ONE Stop: 07/10/20 20:46 - Exam General: Alert, Oriented Neck: Supple Lungs: Clear to Auscultation GI/Abdominal Exam: Non-Tender Sepsis Event Note - Evaluation Sepsis Screening Result: No Definite Risk - Focused Exam Vital Signs: Vital Signs Temp Pulse Resp BP Pulse Ox 07/13/20 08:38 16 94 L 07/13/20 08:00 98.2 F 92 16 134/83 95 07/13/20 03:12 93 L 07/13/20 03:04 97.5 F 84 14 132/84 89 L 07/12/20 23:35 98.2 F 81 17 144/84 H 92 L - Problem List Review Problem List Initiated/Reviewed/Updated: Yes - My Orders Last 24 Hours: Active Orders 24 hr Category Date Time Status Communication Order [RC] PER UNIT ROUTINE Care 07/12/20 19:38 Active Gastrointestinal Tube Mgmt [RC] Q4H Care 07/13/20 02:04 Active Ready for Discharge [RC] PER UNIT ROUTINE Care 07/12/20 13:14 Active NPO [Nothing Per Oral Diet] [DIET] Diet 07/13/20 Breakfast Active Lactated Ringers [Ringers, Lactated] 1,000 ml Med 07/13/20 02:15 Active IV ASDIRECTED NG [Nasogastric Orogastric Tube Insertion] [OM.PC] Oth 07/13/20 02:03 Ordered Routine Medication Orders Acetaminophen (Acetaminophen 325 Mg Tab) 650 mg PO Q6H PRN PRN Reason: Abdominal Pain Benzocaine (Benzocaine 20% Topical [place]) 1 each MUCMEM Q1H PRN PRN Reason: Pain Last Admin: 07/13/20 02:29 Dose: 1 each Documented by: Admin: 07/09/20 20:59 Dose: 1 each Documented by: VINCE Benzocaine/Menthol (Benzocaine/Cetylpyridinium/Menthol Lozenge) 1 lozenge MUCMEM Q2HR PRN PRN Reason: sore throat Last Admin: 07/13/20 10:53 Dose: 1 lozenge Documented by: Admin: 07/13/20 08:40 Dose: 1 lozenge Documented by: Admin: 07/13/20 06:40 Dose: 1 lozenge Documented by: Admin: 07/11/20 08:33 Dose: 1 lozenge Documented by: WILLOW Cosigned by: NIDA Admin: 07/11/20 06:18 Dose: 1 lozenge Documented by: Admin: 07/11/20 04:13 Dose: 1 lozenge Documented by: Admin: 07/10/20 06:58 Dose: 1 lozenge Documented by: Admin: 07/09/20 21:39 Dose: 1 lozenge Documented by: VINCE Diazepam (Diazepam 10 Mg/2 Ml Syringe) 2 mg IVPUSH Q12H PRN PRN Reason: Spasms Diphenhydramine HCl (Diphenhydramine 50 Mg/Ml Sdv) 25 mg IVPUSH Q6H PRN PRN Reason: Itching Diphenhydramine HCl (Diphenhydramine 25 Mg Cap) 25 mg PO Q6H PRN PRN Reason: Itching Pantoprazole Sodium 40 mg/ (Sodium Chloride) 10 mls @ 300 mls/hr IV DAILY [facility] Last Admin: 07/13/20 08:57 Dose: 300 mls/hr Documented by: Infusion: 07/12/20 09:03 Dose: 300 mls/hr Documented by: Admin: 07/12/20 09:01 Dose: 300 mls/hr Documented by: Infusion: 07/11/20 08:50 Dose: 300 mls/hr Documented by: Admin: 07/11/20 08:48 Dose: 300 mls/hr Documented by: Infusion: 07/10/20 09:47 Dose: 300 mls/hr Documented by: Admin: 07/10/20 09:45 Dose: 300 mls/hr Documented by: CIELO Lactated Ringer's (Ringers, Lactated) 1,000 mls @ 75 mls/hr IV ASDIRECTED [facility] Last Admin: 07/12/20 15:15 Dose: 75 mls/hr Documented by: DAMASO Lactated Ringer's (Ringers, Lactated) 1,000 mls @ 100 mls/hr IV ASDIRECTED [facility] Last Admin: 07/13/20 02:30 Dose: 100 mls/hr Documented by: VIKASH Naloxone HCl (Naloxone 0.4 Mg/Ml Syringe) 0.04 mg IVPUSH Q3M PRN PRN Reason: Respiratory Depression Ondansetron HCl (Ondansetron 4 Mg/2 Ml Sdv) 4 mg IVPUSH Q8H PRN PRN Reason: Nausea/Vomiting Last Admin: 07/12/20 21:56 Dose: 4 mg Documented by: VIKASH Ondansetron HCl (Ondansetron 4 Mg/2 Ml Sdv) 4 mg IVPUSH Q6H PRN PRN Reason: Nausea/Vomiting Oxycodone/Acetaminophen (Acetaminophen/Oxycodone 325-5 Mg Tab) 1 tab PO Q6H PRN PRN Reason: Pain Sodium Chloride (Sodium Chloride 0.9% 10 Ml Syringe) 10 ml FLUSH ASDIRECTED PRN PRN Reason: Keep Vein Open Last Admin: 07/09/20 12:32 Dose: 10 ml Documented by: SUMEET Sodium Chloride (Sodium Chloride 0.9% 2.5 Ml Syringe) 2.5 ml FLUSH ASDIRECTED PRN PRN Reason: Keep Vein Open Last Admin: 07/09/20 12:32 Dose: 2.5 ml Documented by: SUMEET - Assessment Assessment (Free Text/Narrative):: wbc and other lab fine; cxr assess ngt position; continue npo, encourage amb, ok for a cup of ice per day; await bowel function; - Plan Plan (Free Text/Narrative):: wbc and other lab fine; cxr assess ngt position; continue npo, encourage amb, ok for a cup of ice per day; await bowel function;
[2020-07-14] MEDS: Benzocaine/Cetylpyridinium/Menthol Lozenge MUCMEM PRN ×5 (03:23→20:45)
[2020-07-14] MEDS: Lactated Ringers 1,000 ML IV SCH ×2 (08:33→18:06)
[2020-07-14] MEDS: Pantoprazole 40 MG in Sodium Chloride 0.9% 10 ML IV SCH (08:33)
--- NOTE | 2020-07-14 10:41 | PCM.SURGPN ---
- General Info Date of Service: 07/14/20 Functional Status: Reports: Pain Controlled - Review of Systems General: Reports: No Symptoms Pulmonary: Reports: No Symptoms Cardiovascular: Reports: No Symptoms Gastrointestinal: Reports: No Symptoms (BM X 1, large, semiformed, and passing gas; denied any abd pain) - Patient Data Vitals - Most Recent: Last Vital Signs Temp 98.1 F 07/14/20 08:08 Pulse 85 07/14/20 08:08 Resp 15 07/14/20 08:08 BP 134/83 07/14/20 08:08 Pulse Ox 94 L 07/14/20 08:08 Weight - Most Recent: 178 lb 12.8 oz I&O - Last 24 Hours: Intake & Output 07/13/20 07/14/20 07/14/20 22:59 06:59 14:59 Intake Total 1210 1025 Output Total 1150 990 Balance 60 35 Med Orders - Current: Current Medications Acetaminophen (Acetaminophen 325 Mg Tab) 650 mg PO Q6H PRN PRN Reason: Abdominal Pain Benzocaine (Benzocaine 20% Topical [place] Ud) 1 each MUCMEM Q1H PRN PRN Reason: Pain Last Admin: 07/13/20 02:29 Dose: 1 each Documented by: Benzocaine/Menthol (Benzocaine/Cetylpyridinium/Menthol Lozenge) 1 lozenge MUCMEM ASDIRECTED PRN PRN Reason: sore throat Last Admin: 07/14/20 08:32 Dose: 1 lozenge Documented by: Diazepam (Diazepam 10 Mg/2 Ml Syringe) 2 mg IVPUSH Q12H PRN PRN Reason: Spasms Diphenhydramine HCl (Diphenhydramine 50 Mg/Ml Sdv) 25 mg IVPUSH Q6H PRN PRN Reason: Itching Diphenhydramine HCl (Diphenhydramine 25 Mg Cap) 25 mg PO Q6H PRN PRN Reason: Itching Pantoprazole Sodium 40 mg/ (Sodium Chloride) 10 mls @ 300 mls/hr IV DAILY [facility] Last Admin: 07/14/20 08:33 Dose: 300 mls/hr Documented by: Lactated Ringer's (Ringers, Lactated) 1,000 mls @ 100 mls/hr IV ASDIRECTED [facility] Last Admin: 07/14/20 08:33 Dose: 100 mls/hr Documented by: Naloxone HCl (Naloxone 0.4 Mg/Ml Syringe) 0.04 mg IVPUSH Q3M PRN PRN Reason: Respiratory Depression Ondansetron HCl (Ondansetron 4 Mg/2 Ml Sdv) 4 mg IVPUSH Q8H PRN PRN Reason: Nausea/Vomiting Last Admin: 07/12/20 21:56 Dose: 4 mg Documented by: Ondansetron HCl (Ondansetron 4 Mg/2 Ml Sdv) 4 mg IVPUSH Q6H PRN PRN Reason: Nausea/Vomiting Oxycodone/Acetaminophen (Acetaminophen/Oxycodone 325-5 Mg Tab) 1 tab PO Q6H PRN PRN Reason: Pain Sodium Chloride (Sodium Chloride 0.9% 10 Ml Syringe) 10 ml FLUSH ASDIRECTED PRN PRN Reason: Keep Vein Open Last Admin: 07/09/20 12:32 Dose: 10 ml Documented by: Sodium Chloride (Sodium Chloride 0.9% 2.5 Ml Syringe) 2.5 ml FLUSH ASDIRECTED PRN PRN Reason: Keep Vein Open Last Admin: 07/09/20 12:32 Dose: 2.5 ml Documented by: Discontinued Medications Benzocaine (Benzocaine 20% Topical [place] Ud) 1 each MUCMEM ONETIME ONE Stop: 07/09/20 17:10 Last Admin: 07/09/20 17:22 Dose: 1 each Documented by: Benzocaine/Menthol (Benzocaine/Cetylpyridinium/Menthol Lozenge) 1 lozenge MUCMEM Q2HR PRN PRN Reason: sore throat Last Admin: 07/13/20 10:53 Dose: 1 lozenge Documented by: Bisacodyl (Bisacodyl 10 Mg Supp) 10 mg RECTAL ONETIME ONE Stop: 07/10/20 10:08 Last Admin: 07/10/20 10:37 Dose: 10 mg Documented by: Bisacodyl (Bisacodyl 10 Mg Supp) 10 mg RECTAL ONETIME ONE Stop: 07/12/20 19:37 Last Admin: 07/12/20 20:18 Dose: 10 mg Documented by: Fentanyl (Fentanyl 100 Mcg/2 Ml Sdv) 50 mcg IVPUSH Q5M PRN PRN Reason: Pain Fentanyl (Fentanyl 250 Mcg/5 Ml Sdv) Confirm Administered Dose 250 mcg .ROUTE .K-MED ONE Stop: 07/10/20 20:45 Glycopyrrolate (Glycopyrrolate 0.2 Mg/Ml Sdv) Confirm Administered Dose 0.2 mg .ROUTE .K-MED ONE Stop: 07/10/20 20:46 Hydromorphone HCl (Hydromorphone 2 Mg/Ml Syringe) Confirm Administered Dose 2 mg .ROUTE .[facility]-MED ONE Stop: 07/10/20 21:57 Sodium Chloride (Normal Saline) 1,000 mls @ 1,000 mls/hr IV .Bolus ONE Stop: 07/09/20 13:19 Last Admin: 07/09/20 12:32 Dose: 1,000 mls/hr Documented by: Sodium Chloride (Normal Saline) 1,000 mls @ 999 mls/hr IV .BOLUS ONE Stop: 07/09/20 17:04 Last Admin: 07/09/20 16:11 Dose: 999 mls/hr Documented by: Lactated Ringer's (Ringers, Lactated) 1,000 mls @ 150 mls/hr IV ASDIRECTED [facility] Last Admin: 07/10/20 14:48 Dose: 150 mls/hr Documented by: Cefoxitin Sodium 2 gm/ Premix 50 mls @ 100 mls/hr IV ONETIME ONE Stop: 07/10/20 20:45 Last Admin: 07/10/20 20:57 Dose: 100 mls/hr Documented by: Bupivacaine HCl/Epinephrine Bitart (Sensorc Mpf 0.25%-Epi 1:[id number]) Confirm Administered Dose 30 mls @ as directed .ROUTE .[facility]-MED ONE Stop: 07/10/20 20:48 Lactated Ringer's (Ringers, Lactated) 1,000 mls @ 150 mls/hr IV ASDIRECTED [facility] Last Infusion: 07/12/20 09:30 Dose: 75 mls/hr Documented by: Lactated Ringer's (Ringers, Lactated) 1,000 mls @ 75 mls/hr IV ASDIRECTED [facility] Last Admin: 07/12/20 15:15 Dose: 75 mls/hr Documented by: Iopamidol (Iopamidol 755 Mg/Ml 500 Ml Multipack Bottle) 100 ml IVPUSH ONETIME STA Stop: 07/09/20 15:53 Last Admin: 07/09/20 15:52 Dose: 100 ml Documented by: Ketorolac Tromethamine (Ketorolac 30 Mg/Ml Sdv) 15 mg IVPUSH ONETIME ONE Stop: 07/09/20 13:04 Last Admin: 07/09/20 13:15 Dose: 15 mg Documented by: Ketorolac Tromethamine (Ketorolac 30 Mg/Ml Sdv) Confirm Administered Dose 30 mg .ROUTE .STK-MED ONE Stop: 07/10/20 20:46 Lidocaine (Lidocaine 2% 5 Ml Sdv) Confirm Administered Dose 5 ml .ROUTE .STK-MED ONE Stop: 07/10/20 20:46 Midazolam HCl (Midazolam 1 Mg/Ml 2 Ml Sdv) Confirm Administered Dose 2 mg .ROUTE .STK-MED ONE Stop: 07/10/20 20:44 Morphine Sulfate (Morphine 2 Mg/Ml Syringe) 2 mg IVPUSH Q2H PRN PRN Reason: Pain Last Admin: 07/10/20 01:26 Dose: 2 mg Documented by: Morphine Sulfate (Morphine 4 Mg/Ml Syringe) 3 mg IVPUSH Q4H PRN PRN Reason: Pain Morphine Sulfate/Sodium Chloride (Morphine Sulfate In 0.9 % Nacl 50 Mg/50 Ml Mill Feeder Bag) 0 mg IV ASDIRECTED [facility]; Protocol Last Admin: 07/11/20 09:55 Dose: 1 mg Documented by: Ondansetron HCl (Ondansetron 4 Mg/2 Ml Sdv) 4 mg IVPUSH ONETIME ONE Stop: 07/09/20 12:28 Last Admin: 07/09/20 12:32 Dose: 4 mg Documented by: Ondansetron HCl (Ondansetron 4 Mg/2 Ml Sdv) Confirm Administered Dose 4 mg .ROUTE .STK-MED ONE Stop: 07/09/20 12:28 Last Admin: 07/09/20 12:32 Dose: Not Given Documented by: Ondansetron HCl (Ondansetron 4 Mg/2 Ml Sdv) 4 mg IVPUSH Q8H PRN PRN Reason: Nausea Last Admin: 07/10/20 15:14 Dose: 4 mg Documented by: Ondansetron HCl (Ondansetron 4 Mg/2 Ml Sdv) Confirm Administered Dose 4 mg .ROUTE .STK-MED ONE Stop: 07/10/20 20:46 Propofol (Propofol 200 Mg/20 Ml Sdv) Confirm Administered Dose 200 mg .ROUTE .STK-MED ONE Stop: 07/10/20 20:44 Rocuronium [place] (Rocuronium [place] 50 Mg/5 Ml Syringe) Confirm Administered Dose 50 mg .ROUTE .STK-MED ONE Stop: 07/10/20 20:46 Rocuronium [place] (Rocuronium [place] 50 Mg/5 Ml Syringe) Confirm Administered Dose 50 mg .ROUTE .STK-MED ONE Stop: 07/10/20 22:07 Sugammadex Sodium (Sugammadex Sodium 200 Mg/2 Ml Vial) Confirm Administered Dose 200 mg .ROUTE .STK-MED ONE Stop: 07/10/20 20:46 - Exam GI/Abdominal Exam: Soft, Non-Tender (wound, cdi) Sepsis Event Note - Evaluation Sepsis Screening Result: No Definite Risk - Focused Exam Vital Signs: Vital Signs Temp Pulse Resp BP Pulse Ox 07/14/20 08:08 98.1 F 85 15 134/83 94 L 07/14/20 03:25 98.6 F 88 16 125/74 94 L 07/13/20 23:30 98.7 F 92 18 132/75 94 L - Problem List Review Problem List Initiated/Reviewed/Updated: Yes - My Orders Last 24 Hours: Active Orders 24 hr Category Date Time Status Benzocaine/Cetylpyrd/Menthol [Cepacol Sore Throat] Med 07/13/20 13:12 Active 1 lozenge MUCMEM ASDIRECTED PRN Medication Orders Acetaminophen (Acetaminophen 325 Mg Tab) 650 mg PO Q6H PRN PRN Reason: Abdominal Pain Benzocaine (Benzocaine 20% Topical [place] Ud) 1 each MUCMEM Q1H PRN PRN Reason: Pain Last Admin: 07/13/20 02:29 Dose: 1 each Documented by: Admin: 07/09/20 20:59 Dose: 1 each Documented by: VINCE Benzocaine/Menthol (Benzocaine/Cetylpyridinium/Menthol Lozenge) 1 lozenge MUCMEM ASDIRECTED PRN PRN Reason: sore throat Last Admin: 07/14/20 08:32 Dose: 1 lozenge Documented by: Admin: 07/14/20 03:23 Dose: 1 lozenge Documented by: Admin: 07/13/20 20:43 Dose: 1 lozenge Documented by: Admin: 07/13/20 16:42 Dose: 1 lozenge Documented by: Admin: 07/13/20 13:33 Dose: 1 lozenge Documented by: Admin: 07/13/20 12:00 Dose: 1 lozenge Documented by: DAMASO Diazepam (Diazepam 10 Mg/2 Ml Syringe) 2 mg IVPUSH Q12H PRN PRN Reason: Spasms Diphenhydramine HCl (Diphenhydramine 50 Mg/Ml Sdv) 25 mg IVPUSH Q6H PRN PRN Reason: Itching Diphenhydramine HCl (Diphenhydramine 25 Mg Cap) 25 mg PO Q6H PRN PRN Reason: Itching Pantoprazole Sodium 40 mg/ (Sodium Chloride) 10 mls @ 300 mls/hr IV DAILY [facility] Last Admin: 07/14/20 08:33 Dose: 300 mls/hr Documented by: Infusion: 07/13/20 08:59 Dose: 300 mls/hr Documented by: Admin: 07/13/20 08:57 Dose: 300 mls/hr Documented by: Infusion: 07/12/20 09:03 Dose: 300 mls/hr Documented by: Admin: 07/12/20 09:01 Dose: 300 mls/hr Documented by: Infusion: 07/11/20 08:50 Dose: 300 mls/hr Documented by: Admin: 07/11/20 08:48 Dose: 300 mls/hr Documented by: Infusion: 07/10/20 09:47 Dose: 300 mls/hr Documented by: Admin: 07/10/20 09:45 Dose: 300 mls/hr Documented by: CIELO Lactated Ringer's (Ringers, Lactated) 1,000 mls @ 100 mls/hr IV ASDIRECTED [facility] Last Admin: 07/14/20 08:33 Dose: 100 mls/hr Documented by: Infusion: 07/14/20 08:33 Dose: 100 mls/hr Documented by: Admin: 07/13/20 23:16 Dose: 100 mls/hr Documented by: Infusion: 07/13/20 23:15 Dose: 100 mls/hr Documented by: Admin: 07/13/20 13:15 Dose: 100 mls/hr Documented by: Infusion: 07/13/20 12:30 Dose: 100 mls/hr Documented by: Admin: 07/13/20 02:30 Dose: 100 mls/hr Documented by: VIKASH Naloxone HCl (Naloxone 0.4 Mg/Ml Syringe) 0.04 mg IVPUSH Q3M PRN PRN Reason: Respiratory Depression Ondansetron HCl (Ondansetron 4 Mg/2 Ml Sdv) 4 mg IVPUSH Q8H PRN PRN Reason: Nausea/Vomiting Last Admin: 07/12/20 21:56 Dose: 4 mg Documented by: VIKASH Ondansetron HCl (Ondansetron 4 Mg/2 Ml Sdv) 4 mg IVPUSH Q6H PRN PRN Reason: Nausea/Vomiting Oxycodone/Acetaminophen (Acetaminophen/Oxycodone 325-5 Mg Tab) 1 tab PO Q6H PRN PRN Reason: Pain Sodium Chloride (Sodium Chloride 0.9% 10 Ml Syringe) 10 ml FLUSH ASDIRECTED PRN PRN Reason: Keep Vein Open Last Admin: 07/09/20 12:32 Dose: 10 ml Documented by: SUMEET Sodium Chloride (Sodium Chloride 0.9% 2.5 Ml Syringe) 2.5 ml FLUSH ASDIRECTED PRN PRN Reason: Keep Vein Open Last Admin: 07/09/20 12:32 Dose: 2.5 ml Documented by: SUMEET - Assessment Assessment (Free Text/Narrative):: pod#4, doing well, BM X1, will wait for more bowel function return, likely pull ngt tomorrow; continue encourage amb - Plan Plan (Free Text/Narrative):: pod#4, doing well, BM X1, will wait for more bowel function return, likely pull ngt tomorrow; continue encourage amb
[2020-07-15] MEDS: Benzocaine/Cetylpyridinium/Menthol Lozenge MUCMEM PRN ×2 (01:10→03:15)
[2020-07-15] MEDS: Lactated Ringers 1,000 ML IV SCH ×3 (04:30→19:13)
[2020-07-15] MEDS: Pantoprazole 40 MG in Sodium Chloride 0.9% 10 ML IV SCH (08:39)
--- NOTE | 2020-07-15 08:51 | PCM.SN.2 ---
- Free Text/Narrative Note: Patient is a 35-year-old male postop day 5 status post emergency ex lap for small bowel obstruction, found to have [address] Moore. Patient was seen and examined at bedside, states pain is well controlled, remained afebrile, with surgical site appearing dry and clean. NG tube remains in place. Resting in bed comfortably. Patient appears to be vitally stable, physical examination was unremarkable from a cardio, pulmonary standpoint. Abdomen has appropriate dry clean dressings. Labs within normal limits per CBC and CMP. Assessment and plan: 1. Postop day #5 status post ex lap for small bowel obstruction x3: Continue with current pain regimen suggested by Dr. Moore who is the primary. We will continue to monitor on the floor Per Dr. Null recommendations plan is to remove NG tube today based on what and increase bowel function patient has demonstrated the last 24 hours. Continue to remain on maintenance fluids. We will consult Dr. Moore regarding checking patient on clear liquid diet advancing as tolerated. Patient is to use SCDs for DVT prophylaxis, no pharmacological DVT prophylaxis is recommended as per Dr. Moore at this time. In the interim patient has been walking frequently and using SCDs at all times when in hospital bed.
--- NOTE | 2020-07-15 12:23 | PCM.SURGPN ---
- General Info Date of Service: 07/15/20 Functional Status: Reports: Pain Controlled (BM X 3, well formed, and pt is hungry) - Patient Data Vitals - Most Recent: Last Vital Signs Temp 97.1 F 07/15/20 08:00 Pulse 95 07/15/20 08:00 Resp 14 07/15/20 08:00 BP 127/79 07/15/20 08:00 Pulse Ox 97 07/15/20 08:00 Weight - Most Recent: 178 lb 12.8 oz I&O - Last 24 Hours: Intake & Output 07/14/20 07/15/20 07/15/20 22:59 06:59 14:59 Intake Total 60 60 10 Output Total 1205 1150 Balance -1145 -1090 10 Med Orders - Current: Current Medications Acetaminophen (Acetaminophen 325 Mg Tab) 650 mg PO Q6H PRN PRN Reason: Abdominal Pain Benzocaine (Benzocaine 20% Topical [place]) 1 each MUCMEM Q1H PRN PRN Reason: Pain Last Admin: 07/13/20 02:29 Dose: 1 each Documented by: Benzocaine/Menthol (Benzocaine/Cetylpyridinium/Menthol Lozenge) 1 lozenge MUCMEM ASDIRECTED PRN PRN Reason: sore throat Last Admin: 07/15/20 03:15 Dose: 1 lozenge Documented by: Diazepam (Diazepam 10 Mg/2 Ml Syringe) 2 mg IVPUSH Q12H PRN PRN Reason: Spasms Diphenhydramine HCl (Diphenhydramine 50 Mg/Ml Sdv) 25 mg IVPUSH Q6H PRN PRN Reason: Itching Diphenhydramine HCl (Diphenhydramine 25 Mg Cap) 25 mg PO Q6H PRN PRN Reason: Itching Pantoprazole Sodium 40 mg/ (Sodium Chloride) 10 mls @ 300 mls/hr IV DAILY [facility] Last Admin: 07/15/20 08:39 Dose: 300 mls/hr Documented by: Lactated Ringer's (Ringers, Lactated) 1,000 mls @ 100 mls/hr IV ASDIRECTED [facility] Last Admin: 07/15/20 04:30 Dose: 100 mls/hr Documented by: Naloxone HCl (Naloxone 0.4 Mg/Ml Syringe) 0.04 mg IVPUSH Q3M PRN PRN Reason: Respiratory Depression Ondansetron HCl (Ondansetron 4 Mg/2 Ml Sdv) 4 mg IVPUSH Q8H PRN PRN Reason: Nausea/Vomiting Last Admin: 07/12/20 21:56 Dose: 4 mg Documented by: Ondansetron HCl (Ondansetron 4 Mg/2 Ml Sdv) 4 mg IVPUSH Q6H PRN PRN Reason: Nausea/Vomiting Oxycodone/Acetaminophen (Acetaminophen/Oxycodone 325-5 Mg Tab) 1 tab PO Q6H PRN PRN Reason: Pain Sodium Chloride (Sodium Chloride 0.9% 10 Ml Syringe) 10 ml FLUSH ASDIRECTED PRN PRN Reason: Keep Vein Open Last Admin: 07/09/20 12:32 Dose: 10 ml Documented by: Sodium Chloride (Sodium Chloride 0.9% 2.5 Ml Syringe) 2.5 ml FLUSH ASDIRECTED PRN PRN Reason: Keep Vein Open Last Admin: 07/09/20 12:32 Dose: 2.5 ml Documented by: Discontinued Medications Benzocaine (Benzocaine 20% Topical [place]) 1 each MUCMEM ONETIME ONE Stop: 07/09/20 17:10 Last Admin: 07/09/20 17:22 Dose: 1 each Documented by: Benzocaine/Menthol (Benzocaine/Cetylpyridinium/Menthol Lozenge) 1 lozenge MUCMEM Q2HR PRN PRN Reason: sore throat Last Admin: 07/13/20 10:53 Dose: 1 lozenge Documented by: Bisacodyl (Bisacodyl 10 Mg Supp) 10 mg RECTAL ONETIME ONE Stop: 07/10/20 10:08 Last Admin: 07/10/20 10:37 Dose: 10 mg Documented by: Bisacodyl (Bisacodyl 10 Mg Supp) 10 mg RECTAL ONETIME ONE Stop: 07/12/20 19:37 Last Admin: 07/12/20 20:18 Dose: 10 mg Documented by: Fentanyl (Fentanyl 100 Mcg/2 Ml Sdv) 50 mcg IVPUSH Q5M PRN PRN Reason: Pain Fentanyl (Fentanyl 250 Mcg/5 Ml Sdv) Confirm Administered Dose 250 mcg .ROUTE .STK-MED ONE Stop: 07/10/20 20:45 Glycopyrrolate (Glycopyrrolate 0.2 Mg/Ml Sdv) Confirm Administered Dose 0.2 mg .ROUTE .[facility]-MED ONE Stop: 07/10/20 20:46 Hydromorphone HCl (Hydromorphone 2 Mg/Ml Syringe) Confirm Administered Dose 2 mg .ROUTE .STK-MED ONE Stop: 07/10/20 21:57 Sodium Chloride (Normal Saline) 1,000 mls @ 1,000 mls/hr IV .Bolus ONE Stop: 07/09/20 13:19 Last Admin: 07/09/20 12:32 Dose: 1,000 mls/hr Documented by: Sodium Chloride (Normal Saline) 1,000 mls @ 999 mls/hr IV .BOLUS ONE Stop: 07/09/20 17:04 Last Admin: 07/09/20 16:11 Dose: 999 mls/hr Documented by: Lactated Ringer's (Ringers, Lactated) 1,000 mls @ 150 mls/hr IV ASDIRECTED [facility] Last Admin: 07/10/20 14:48 Dose: 150 mls/hr Documented by: Cefoxitin Sodium 2 gm/ Premix 50 mls @ 100 mls/hr IV ONETIME ONE Stop: 07/10/20 20:45 Last Admin: 07/10/20 20:57 Dose: 100 mls/hr Documented by: Bupivacaine HCl/Epinephrine Bitart (Sensorc Mpf 0.25%-Epi [id number]) Confirm Administered Dose 30 mls @ as directed .ROUTE .[facility]-MED ONE Stop: 07/10/20 20:48 Lactated Ringer's (Ringers, Lactated) 1,000 mls @ 150 mls/hr IV ASDIRECTED [facility] Last Infusion: 07/12/20 09:30 Dose: 75 mls/hr Documented by: Lactated Ringer's (Ringers, Lactated) 1,000 mls @ 75 mls/hr IV ASDIRECTED [facility] Last Admin: 07/12/20 15:15 Dose: 75 mls/hr Documented by: Iopamidol (Iopamidol 755 Mg/Ml 500 Ml Multipack Bottle) 100 ml IVPUSH ONETIME STA Stop: 07/09/20 15:53 Last Admin: 07/09/20 15:52 Dose: 100 ml Documented by: Ketorolac Tromethamine (Ketorolac 30 Mg/Ml Sdv) 15 mg IVPUSH ONETIME ONE Stop: 07/09/20 13:04 Last Admin: 07/09/20 13:15 Dose: 15 mg Documented by: Ketorolac Tromethamine (Ketorolac 30 Mg/Ml Sdv) Confirm Administered Dose 30 mg .ROUTE .STK-MED ONE Stop: 07/10/20 20:46 Lidocaine (Lidocaine 2% 5 Ml Sdv) Confirm Administered Dose 5 ml .ROUTE .STK-MED ONE Stop: 07/10/20 20:46 Midazolam HCl (Midazolam 1 Mg/Ml 2 Ml Sdv) Confirm Administered Dose 2 mg .ROUTE .STK-MED ONE Stop: 07/10/20 20:44 Morphine Sulfate (Morphine 2 Mg/Ml Syringe) 2 mg IVPUSH Q2H PRN PRN Reason: Pain Last Admin: 07/10/20 01:26 Dose: 2 mg Documented by: Morphine Sulfate (Morphine 4 Mg/Ml Syringe) 3 mg IVPUSH Q4H PRN PRN Reason: Pain Morphine Sulfate/Sodium Chloride (Morphine Sulfate In 0.9 % Nacl 50 Mg/50 Ml Aircraft Instrument Engineer Bag) 0 mg IV ASDIRECTED [facility]; Protocol Last Admin: 07/11/20 09:55 Dose: 1 mg Documented by: Ondansetron HCl (Ondansetron 4 Mg/2 Ml Sdv) 4 mg IVPUSH ONETIME ONE Stop: 07/09/20 12:28 Last Admin: 07/09/20 12:32 Dose: 4 mg Documented by: Ondansetron HCl (Ondansetron 4 Mg/2 Ml Sdv) Confirm Administered Dose 4 mg .ROUTE .STK-MED ONE Stop: 07/09/20 12:28 Last Admin: 07/09/20 12:32 Dose: Not Given Documented by: Ondansetron HCl (Ondansetron 4 Mg/2 Ml Sdv) 4 mg IVPUSH Q8H PRN PRN Reason: Nausea Last Admin: 07/10/20 15:14 Dose: 4 mg Documented by: Ondansetron HCl (Ondansetron 4 Mg/2 Ml Sdv) Confirm Administered Dose 4 mg .ROUTE .STK-MED ONE Stop: 07/10/20 20:46 Propofol (Propofol 200 Mg/20 Ml Sdv) Confirm Administered Dose 200 mg .ROUTE .STK-MED ONE Stop: 07/10/20 20:44 Rocuronium [place] (Rocuronium [place] 50 Mg/5 Ml Syringe) Confirm Administered Dose 50 mg .ROUTE .STK-MED ONE Stop: 07/10/20 20:46 Rocuronium [place] (Rocuronium [place] 50 Mg/5 Ml Syringe) Confirm Administered Dose 50 mg .ROUTE .STK-MED ONE Stop: 07/10/20 22:07 Sugammadex Sodium (Sugammadex Sodium 200 Mg/2 Ml Vial) Confirm Administered Dose 200 mg .ROUTE .STK-MED ONE Stop: 07/10/20 20:46 - Exam General: Alert, Oriented GI/Abdominal Exam: Soft (wound w minimal drainage, nt, normal bowel sound), Non- Tender, No Distention Sepsis Event Note - Evaluation Sepsis Screening Result: No Definite Risk - Focused Exam Vital Signs: Vital Signs Temp Pulse Resp BP Pulse Ox 07/15/20 08:00 97.1 F 95 14 127/79 97 07/15/20 04:00 98.3 F 95 17 133/84 94 L - Problem List Review Problem List Initiated/Reviewed/Updated: Yes - My Orders Last 24 Hours: Active Orders 24 hr Category Date Time Status Communication Order [RC] ROUTINE Care 07/15/20 12:19 Ordered Medication Orders Acetaminophen (Acetaminophen 325 Mg Tab) 650 mg PO Q6H PRN PRN Reason: Abdominal Pain Benzocaine (Benzocaine 20% Topical [place]d) 1 each MUCMEM Q1H PRN PRN Reason: Pain Last Admin: 07/13/20 02:29 Dose: 1 each Documented by: Admin: 07/09/20 20:59 Dose: 1 each Documented by: VINCE Benzocaine/Menthol (Benzocaine/Cetylpyridinium/Menthol Lozenge) 1 lozenge MUCMEM ASDIRECTED PRN PRN Reason: sore throat Last Admin: 07/15/20 03:15 Dose: 1 lozenge Documented by: Admin: 07/15/20 01:10 Dose: 1 lozenge Documented by: Admin: 07/14/20 20:45 Dose: 1 lozenge Documented by: Admin: 07/14/20 16:56 Dose: 1 lozenge Documented by: Admin: 07/14/20 15:03 Dose: 1 lozenge Documented by: Admin: 07/14/20 08:32 Dose: 1 lozenge Documented by: Admin: 07/14/20 03:23 Dose: 1 lozenge Documented by: Admin: 07/13/20 20:43 Dose: 1 lozenge Documented by: Admin: 07/13/20 16:42 Dose: 1 lozenge Documented by: Admin: 07/13/20 13:33 Dose: 1 lozenge Documented by: Admin: 07/13/20 12:00 Dose: 1 lozenge Documented by: DAMASO Diazepam (Diazepam 10 Mg/2 Ml Syringe) 2 mg IVPUSH Q12H PRN PRN Reason: Spasms Diphenhydramine HCl (Diphenhydramine 50 Mg/Ml Sdv) 25 mg IVPUSH Q6H PRN PRN Reason: Itching Diphenhydramine HCl (Diphenhydramine 25 Mg Cap) 25 mg PO Q6H PRN PRN Reason: Itching Pantoprazole Sodium 40 mg/ (Sodium Chloride) 10 mls @ 300 mls/hr IV DAILY [facility] Admin: 07/15/20 08:39 Dose: 300 mls/hr Documented by: Infusion: 07/14/20 08:35 Dose: 300 mls/hr Documented by: Admin: 07/14/20 08:33 Dose: 300 mls/hr Documented by: Infusion: 07/13/20 08:59 Dose: 300 mls/hr Documented by: Admin: 07/13/20 08:57 Dose: 300 mls/hr Documented by: Infusion: 07/12/20 09:03 Dose: 300 mls/hr Documented by: Admin: 07/12/20 09:01 Dose: 300 mls/hr Documented by: Infusion: 07/11/20 08:50 Dose: 300 mls/hr Documented by: Admin: 07/11/20 08:48 Dose: 300 mls/hr Documented by: Infusion: 07/10/20 09:47 Dose: 300 mls/hr Documented by: Admin: 07/10/20 09:45 Dose: 300 mls/hr Documented by: CIELO Lactated Ringer's (Ringers, Lactated) 1,000 mls @ 100 mls/hr IV ASDIRECTED [facility] Last Admin: 07/15/20 04:30 Dose: 100 mls/hr Documented by: Infusion: 07/15/20 04:06 Dose: 100 mls/hr Documented by: Admin: 07/14/20 18:06 Dose: 100 mls/hr Documented by: Infusion: 07/14/20 18:06 Dose: 100 mls/hr Documented by: Admin: 07/14/20 08:33 Dose: 100 mls/hr Documented by: Infusion: 07/14/20 08:33 Dose: 100 mls/hr Documented by: Admin: 07/13/20 23:16 Dose: 100 mls/hr Documented by: Infusion: 07/13/20 23:15 Dose: 100 mls/hr Documented by: Admin: 07/13/20 13:15 Dose: 100 mls/hr Documented by: Infusion: 07/13/20 12:30 Dose: 100 mls/hr Documented by: Admin: 07/13/20 02:30 Dose: 100 mls/hr Documented by: VIKASH Naloxone HCl (Naloxone 0.4 Mg/Ml Syringe) 0.04 mg IVPUSH Q3M PRN PRN Reason: Respiratory Depression Ondansetron HCl (Ondansetron 4 Mg/2 Ml Sdv) 4 mg IVPUSH Q8H PRN PRN Reason: Nausea/Vomiting Last Admin: 07/12/20 21:56 Dose: 4 mg Documented by: VIKASH Ondansetron HCl (Ondansetron 4 Mg/2 Ml Sdv) 4 mg IVPUSH Q6H PRN PRN Reason: Nausea/Vomiting Oxycodone/Acetaminophen (Acetaminophen/Oxycodone 325-5 Mg Tab) 1 tab PO Q6H PRN PRN Reason: Pain Sodium Chloride (Sodium Chloride 0.9% 10 Ml Syringe) 10 ml FLUSH ASDIRECTED PRN PRN Reason: Keep Vein Open Last Admin: 07/09/20 12:32 Dose: 10 ml Documented by: SUMEET Sodium Chloride (Sodium Chloride 0.9% 2.5 Ml Syringe) 2.5 ml FLUSH ASDIRECTED PRN PRN Reason: Keep Vein Open Last Admin: 07/09/20 12:32 Dose: 2.5 ml Documented by: MURDNIC - Assessment Assessment (Free Text/Narrative):: BM X 4, well formed, passing flatus; dc ngt to 1/2 tray clear liquid diet; do not advance - Plan Plan (Free Text/Narrative):: BM X 4, well formed, passing flatus; dc ngt to 1/2 tray clear liquid diet; do not advance
[2020-07-16] MEDS: Lactated Ringers 1,000 ML IV SCH (03:34)
[2020-07-16 05:52] LABS: BLOOD UREA NITROGEN,BUN 4 mg/dL (7.0-18.0); CARBON DIOXIDE,CO2 23.9 mmol/L (21.0-32.0); CHLORIDE,CL 104 mmol/L (98-107); GLUCOSE RANDOM 104 mg/dL (74-106); POTASSIUM,K 3.4 mmol/L (3.5-5.1); SODIUM,NA 141 mmol/L (136-148)
--- NOTE | 2020-07-16 08:46 | PCM.SN.2 ---
- Free Text/Narrative Note: dc summary [id number]
[2020-07-16] MEDS ORDERED: Lidocaine 1% 20 ML MDV ONE (08:57)
[2020-07-16] MEDS: Pantoprazole 40 MG in Sodium Chloride 0.9% 10 ML IV SCH (08:58)
--- NOTE | 2020-07-16 14:34 | DISCH ---
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 PROCEDURES PERFORMED: 1. Laparotomy. 2. Diverticulectomy. 3. Appendectomy. SURGEON: Arthur Moore MD HOSPITAL COURSE: Please refer to admission history and physical for detail. In summary, the patient was transferred from outside facility to our place for CAT scan as the outside facility CAT scan was not working. CAT scan showed high-grade bowel obstruction, and Surgery was then consulted. The patient had no pain at that time upon examination, so the patient was admitted for NG tube decompression and conservative management. Two days later, x-ray was no change, and the patient has thrown up even with the NG tube. The patient was taking to the operating room. Status post exploratory laparotomy, diverticulectomy, and appendectomy. Postop, the patient did very well, and the patient does not want to take any pain medication, and ambulated, and 2 days later, bowel sounds returned. NG tube removed and started feeding. However, after feeding, the patient threw up at nighttime. NG tube was reinserted, and this time, NG tube stayed there for another 2 more days, and the patient had bowel movement 4 to 5 times, well- formed stool. NG tube was then removed and started oral diet. The patient is doing well and sent home. Upon discharge, the patient got a script for pain medication and got a return followup appointment, and the patient was ambulating by self and had bowel movement and tolerated p.o. diet. As always, thank you for the referral. LAURA / ABEL /[id number]
--- NOTE | 2020-07-16 17:10 | PCM.CONSN ---
- General Info Date of Service: 07/16/20 Admission Dx/Problem (Free Text): Admission Diagnosis/Problem Admission Diagnosis/Problem Small bowel obstruction Functional Status: Reports: Pain Controlled, Tolerating Diet, Ambulating - Review of Systems General: Reports: No Symptoms HEENT: Reports: No Symptoms Pulmonary: Reports: No Symptoms Cardiovascular: Reports: No Symptoms Gastrointestinal: Reports: No Symptoms Genitourinary: Reports: No Symptoms Musculoskeletal: Reports: No Symptoms Skin: Reports: No Symptoms Neurological: Reports: No Symptoms Psychiatric: Reports: No Symptoms - Patient Data Vitals - Most Recent: Last Vital Signs Temp 97.7 F 07/16/20 12:30 Pulse 84 07/16/20 12:30 Resp 17 07/16/20 12:30 BP 123/79 07/16/20 12:30 Pulse Ox 97 07/16/20 12:30 Weight - Most Recent: 178 lb 12.8 oz I&O - Last 24 Hours: Intake & Output 07/16/20 07/16/20 07/16/20 06:59 14:59 22:59 Intake Total 390 400 Output Total 1075 750 Balance -685 -350 Lab Results Last 24 Hours: Laboratory Results - last 24 hr 07/16/20 07/16/20 Range/Units 05:25 05:25 WBC 10.76 (4.0-11.0) K/uL RBC 4.41 L (4.50-5.90) M/uL Hgb 13.2 (13.0-17.0) g/dL Hct 38.3 (38.0-50.0) % MCV 86.8 (80.0-98.0) fL MCH 29.9 (27.0-32.0) pg MCHC 34.5 (31.0-37.0) g/dL RDW Std Deviation 43.0 (28.0-62.0) fl RDW Coeff of Shivam 14 (11.0-15.0) % Plt Count 330 (150-400) K/uL MPV 9.30 (7.40-12.00) fL Neut % (Auto) 73.3 (48.0-80.0) % Lymph % (Auto) 14.0 L (16.0-40.0) % [place] % (Auto) 9.6 (0.0-15.0) % Eos % (Auto) 2.7 (0.0-7.0) % Baso % (Auto) 0.4 (0.0-1.5) % Neut # (Auto) 7.9 H (1.4-5.7) K/uL Lymph # (Auto) 1.5 (0.6-2.4) K/uL [place] # (Auto) 1.0 H (0.0-0.8) K/uL Eos # (Auto) 0.3 (0.0-0.7) K/uL Baso # (Auto) 0.0 (0.0-0.1) K/uL Nucleated RBC % 0.0 /100WBC Nucleated RBCs # 0 K/uL Sodium 141 (136-148) mmol/L Potassium 3.4 L (3.5-5.1) mmol/L Chloride 104 (98-107) mmol/L Carbon Dioxide 23.9 (21.0-32.0) mmol/L BUN 4 L (7.0-18.0) mg/dL Creatinine 0.8 (0.8-1.3) mg/dL Est Cr Clr Drug Dosing 119.35 mL/min Estimated GFR (MDRD) > 60.0 ml/min Glucose 104 (74-106) mg/dL Calcium 7.7 L (8.5-10.1) mg/dL Phosphorus 3.6 (2.6-4.7) mg/dL Magnesium 1.8 (1.8-2.4) mg/dL Total Bilirubin 0.7 (0.2-1.0) mg/dL AST 26 (15-37) IU/L ALT 52 (14-63) IU/L Alkaline Phosphatase 51 (46-116) U/L Total Protein 6.2 L (6.4-8.2) g/dL Albumin 2.4 L (3.4-5.0) g/dL Globulin 3.8 (2.6-4.0) g/dL Albumin/Globulin Ratio 0.6 L (0.9-1.6) Med Orders - Current: Current Medications Discontinued Medications Acetaminophen (Acetaminophen 325 Mg Tab) 650 mg PO Q6H PRN PRN Reason: Abdominal Pain Benzocaine (Benzocaine 20% Topical [place] Ud) 1 each MUCMEM ONETIME ONE Stop: 07/09/20 17:10 Last Admin: 07/09/20 17:22 Dose: 1 each Documented by: Benzocaine (Benzocaine 20% Topical [place] Ud) 1 each MUCMEM Q1H PRN PRN Reason: Pain Last Admin: 07/13/20 02:29 Dose: 1 each Documented by: Benzocaine/Menthol (Benzocaine/Cetylpyridinium/Menthol Lozenge) 1 lozenge MUCMEM Q2HR PRN PRN Reason: sore throat Last Admin: 07/13/20 10:53 Dose: 1 lozenge Documented by: Benzocaine/Menthol (Benzocaine/Cetylpyridinium/Menthol Lozenge) 1 lozenge MUCMEM ASDIRECTED PRN PRN Reason: sore throat Last Admin: 07/15/20 03:15 Dose: 1 lozenge Documented by: Bisacodyl (Bisacodyl 10 Mg Supp) 10 mg RECTAL ONETIME ONE Stop: 07/10/20 10:08 Last Admin: 07/10/20 10:37 Dose: 10 mg Documented by: Bisacodyl (Bisacodyl 10 Mg Supp) 10 mg RECTAL ONETIME ONE Stop: 07/12/20 19:37 Last Admin: 07/12/20 20:18 Dose: 10 mg Documented by: Diazepam (Diazepam 10 Mg/2 Ml Syringe) 2 mg IVPUSH Q12H PRN PRN Reason: Spasms Diphenhydramine HCl (Diphenhydramine 50 Mg/Ml Sdv) 25 mg IVPUSH Q6H PRN PRN Reason: Itching Diphenhydramine HCl (Diphenhydramine 25 Mg Cap) 25 mg PO Q6H PRN PRN Reason: Itching Fentanyl (Fentanyl 100 Mcg/2 Ml Sdv) 50 mcg IVPUSH Q5M PRN PRN Reason: Pain Fentanyl (Fentanyl 250 Mcg/5 Ml Sdv) Confirm Administered Dose 250 mcg .ROUTE .STK-MED ONE Stop: 07/10/20 20:45 Glycopyrrolate (Glycopyrrolate 0.2 Mg/Ml Sdv) Confirm Administered Dose 0.2 mg .ROUTE .STK-MED ONE Stop: 07/10/20 20:46 Hydromorphone HCl (Hydromorphone 2 Mg/Ml Syringe) Confirm Administered Dose 2 mg .ROUTE .STK-MED ONE Stop: 07/10/20 21:57 Sodium Chloride (Normal Saline) 1,000 mls @ 1,000 mls/hr IV .Bolus ONE Stop: 07/09/20 13:19 Last Admin: 07/09/20 12:32 Dose: 1,000 mls/hr Documented by: Sodium Chloride (Normal Saline) 1,000 mls @ 999 mls/hr IV .BOLUS ONE Stop: 07/09/20 17:04 Last Admin: 07/09/20 16:11 Dose: 999 mls/hr Documented by: Lactated Ringer's (Ringers, Lactated) 1,000 mls @ 150 mls/hr IV ASDIRECTED [facility] Last Admin: 07/10/20 14:48 Dose: 150 mls/hr Documented by: Pantoprazole Sodium 40 mg/ (Sodium Chloride) 10 mls @ 300 mls/hr IV DAILY CURRY Last Admin: 07/16/20 08:58 Dose: 300 mls/hr Documented by: Cefoxitin Sodium 2 gm/ Premix 50 mls @ 100 mls/hr IV ONETIME ONE Stop: 07/10/20 20:45 Last Admin: 07/10/20 20:57 Dose: 100 mls/hr Documented by: Bupivacaine HCl/Epinephrine Bitart (Sensorc Mpf 0.25%-Epi 1:[id number]) Confirm Administered Dose 30 mls @ as directed .ROUTE .K-MED ONE Stop: 07/10/20 20:48 Lactated Ringer's (Ringers, Lactated) 1,000 mls @ 150 mls/hr IV ASDIRECTED [facility] Last Infusion: 07/12/20 09:30 Dose: 75 mls/hr Documented by: Lactated Ringer's (Ringers, Lactated) 1,000 mls @ 75 mls/hr IV ASDIRECTED [facility] Last Admin: 07/12/20 15:15 Dose: 75 mls/hr Documented by: Lactated Ringer's (Ringers, Lactated) 1,000 mls @ 100 mls/hr IV ASDIRECTED [facility] Last Admin: 07/15/20 14:01 Dose: 100 mls/hr Documented by: Lactated Ringer's (Ringers, Lactated) 1,000 mls @ 50 mls/hr IV ASDIRECTED [facility] Last Infusion: 07/16/20 09:14 Dose: 0 mls/hr Documented by: Iopamidol (Iopamidol 755 Mg/Ml 500 Ml Multipack Bottle) 100 ml IVPUSH ONETIME STA Stop: 07/09/20 15:53 Last Admin: 07/09/20 15:52 Dose: 100 ml Documented by: Ketorolac Tromethamine (Ketorolac 30 Mg/Ml Sdv) 15 mg IVPUSH ONETIME ONE Stop: 07/09/20 13:04 Last Admin: 07/09/20 13:15 Dose: 15 mg Documented by: Ketorolac Tromethamine (Ketorolac 30 Mg/Ml Sdv) Confirm Administered Dose 30 mg .ROUTE .STK-MED ONE Stop: 07/10/20 20:46 Lidocaine (Lidocaine 2% 5 Ml Sdv) Confirm Administered Dose 5 ml .ROUTE .STK-MED ONE Stop: 07/10/20 20:46 Lidocaine HCl (Lidocaine 1% 20 Ml Mdv) Confirm Administered Dose 20 ml .ROUTE .STK-MED ONE Stop: 07/16/20 08:58 Last Admin: 07/16/20 09:14 Dose: 20 ml Documented by: Midazolam HCl (Midazolam 1 Mg/Ml 2 Ml Sdv) Confirm Administered Dose 2 mg .ROUTE .STK-MED ONE Stop: 07/10/20 20:44 Morphine Sulfate (Morphine 2 Mg/Ml Syringe) 2 mg IVPUSH Q2H PRN PRN Reason: Pain Last Admin: 07/10/20 01:26 Dose: 2 mg Documented by: Morphine Sulfate (Morphine 4 Mg/Ml Syringe) 3 mg IVPUSH Q4H PRN PRN Reason: Pain Morphine Sulfate/Sodium Chloride (Morphine Sulfate In 0.9 % Nacl 50 Mg/50 Ml Butcher Assistant Bag) 0 mg IV ASDIRECTED [facility]; Protocol Last Admin: 07/11/20 09:55 Dose: 1 mg Documented by: Naloxone HCl (Naloxone 0.4 Mg/Ml Syringe) 0.04 mg IVPUSH Q3M PRN PRN Reason: Respiratory Depression Ondansetron HCl (Ondansetron 4 Mg/2 Ml Sdv) 4 mg IVPUSH ONETIME ONE Stop: 07/09/20 12:28 Last Admin: 07/09/20 12:32 Dose: 4 mg Documented by: Ondansetron HCl (Ondansetron 4 Mg/2 Ml Sdv) Confirm Administered Dose 4 mg .ROUTE .STK-MED ONE Stop: 07/09/20 12:28 Last Admin: 07/09/20 12:32 Dose: Not Given Documented by: Ondansetron HCl (Ondansetron 4 Mg/2 Ml Sdv) 4 mg IVPUSH Q8H PRN PRN Reason: Nausea Last Admin: 07/10/20 15:14 Dose: 4 mg Documented by: Ondansetron HCl (Ondansetron 4 Mg/2 Ml Sdv) Confirm Administered Dose 4 mg .ROUTE .STK-MED ONE Stop: 07/10/20 20:46 Ondansetron HCl (Ondansetron 4 Mg/2 Ml Sdv) 4 mg IVPUSH Q8H PRN PRN Reason: Nausea/Vomiting Last Admin: 07/12/20 21:56 Dose: 4 mg Documented by: Ondansetron HCl (Ondansetron 4 Mg/2 Ml Sdv) 4 mg IVPUSH Q6H PRN PRN Reason: Nausea/Vomiting Oxycodone/Acetaminophen (Acetaminophen/Oxycodone 325-5 Mg Tab) 1 tab PO Q6H PRN PRN Reason: Pain Propofol (Propofol 200 Mg/20 Ml Sdv) Confirm Administered Dose 200 mg .ROUTE .STK-MED ONE Stop: 07/10/20 20:44 Rocuronium [place] (Rocuronium [place] 50 Mg/5 Ml Syringe) Confirm Administered Dose 50 mg .ROUTE .STK-MED ONE Stop: 07/10/20 20:46 Rocuronium [place] (Rocuronium [place] 50 Mg/5 Ml Syringe) Confirm Administered Dose 50 mg .ROUTE .STK-MED ONE Stop: 07/10/20 22:07 Sodium Chloride (Sodium Chloride 0.9% 10 Ml Syringe) 10 ml FLUSH ASDIRECTED PRN PRN Reason: Keep Vein Open Last Admin: 07/09/20 12:32 Dose: 10 ml Documented by: Sodium Chloride (Sodium Chloride 0.9% 2.5 Ml Syringe) 2.5 ml FLUSH ASDIRECTED PRN PRN Reason: Keep Vein Open Last Admin: 07/09/20 12:32 Dose: 2.5 ml Documented by: Sugammadex Sodium (Sugammadex Sodium 200 Mg/2 Ml Vial) Confirm Administered Dose 200 mg .ROUTE .STK-MED ONE Stop: 07/10/20 20:46 - Exam Urinary Catheter Total Time: 0Days 14Hours General: Alert, Oriented, Cooperative, No Acute Distress HEENT: Pupils Equal, Pupils Reactive, EOMI, Mucous Membr. Moist/[place] Neck: Supple Lungs: Clear to Auscultation, Normal Respiratory Effort Cardiovascular: Regular Rate, Regular Rhythm, No Murmurs GI/Abdominal Exam: Normal Bowel Sounds, Soft, Other Back Exam: Normal Inspection Extremities: Normal Inspection, Normal Range of Motion, No Pedal Edema, Normal Capillary Refill Peripheral Pulses: 2+: Carotid (L), Carotid (R), Dorsalis Pedis (L), Dorsalis Pedis (R) Skin: Warm, Dry, Intact, Other (superficial wound cleaned and packed appropriatley by primary on the case.) Wound/Incisions: Dressing Dry and Intact Neurological: No New Focal Deficit Psy/Mental Status: Alert, Normal Affect, Normal Mood Sepsis Event Note - Evaluation Sepsis Screening Result: No Definite Risk - Focused Exam Vital Signs: Vital Signs Temp Pulse Resp BP BP Pulse Ox 07/16/20 12:30 97.7 F 84 17 123/79 97 07/16/20 08:00 97.9 F 95 16 128/78 128/78 96 Consult PN Assessment/Plan Problem List Initiated/Reviewed/Updated: Yes Plan: Signing off, agree with Dr. Moore's recommendations and discharge plans.
== END 2020-07-16 14:10 | disposition home or self-care (01) | DRG 330 ==
LOC: MW.ED 12:12 → MW.MS 17:09 → OBSVTOIN 07-10 23:44 → MW.MS 07-11 01:03
PROVIDERS: ADMIT Surgery; ATTEND Surgery
PROC: 0DB80ZZ Excision of Small Intestine, Open Approach (ICD-10-PCS; principal; 2020-07-10)
PROC: 0DTJ0ZZ Resection of Appendix, Open Approach (ICD-10-PCS; 2020-07-10)
DX: K57.10 Diverticulosis of small intestine without perforation or abscess without bleeding (principal); K56.609 Unspecified intestinal obstruction, unspecified as to partial versus complete obstruction; Z20.822 Contact with and (suspected) exposure to COVID-19
CPT/HCPCS: 00840; 36415; 43752; 71045; 71045-26; 74018; 74018-26; 74176; 74176-26; 74177; 74177-26; 80053; 83605; 83690; 83735; 84100; 85025; 88304; 88305; 96374; 96375; 96376; 99284; 99285-25; A9270-GY; C9113; G0378; J0330; J0694; J1170; J1885; J2250; J2270; J2405; J2704; J3010; J3490; J7030; J7120; Q9967; U0002